=== PATIENT | female | born 1935 | race Caucasian/White ===

== ENCOUNTER 2016-09-22 12:40 | Emergency (ER) | payer OTHER, BC ==
[~2016-09-22] VITALS: Ht 170.2 cm; Wt 104.8 kg
[~2016-09-22 12:40] MED LIST: LEVO75TA36 PO; SIMV20TA2 PO
[2016-09-22 12:44] VITALS: TEMP 36.9; Ht 170.2 cm; Wt 104.8 kg
[2016-09-22 13:09] VITALS: O2SAT 94
[2016-09-22 13:25] LABS: HEMATOCRIT 37.9 % (37-47); MEAN CELL VOLUME 89.4 fL (80-100); MEAN CORPUSCULAR HEMOGLOBIN 30.2 pg (25-34); MEAN CORPUSCULAR HGB CONC 33.8 g/dl (32-36); MEAN PLATELET VOLUME 9.5 fL (7.4-10.4); PLATELET COUNT 168 K/uL (130-400); RED BLOOD COUNT 4.24 M/uL (4.2-5.4); WHITE BLOOD COUNT 7.11 K/uL (4.8-10.8)
[2016-09-22] MEDS ORDERED: PRED-301 PO (13:36)
[2016-09-22] MEDS ORDERED: ATOR10TA88 PO (13:36)
[2016-09-22] MEDS ORDERED: ASPI81TA28 PO (13:36)
[2016-09-22] MEDS ORDERED: LEVO88TA PO (13:36)
[2016-09-22] MEDS ORDERED: CALC500C70 PO (13:36)
[2016-09-22] MEDS ORDERED: HYDR12.56 PO (13:36)
[2016-09-22] MEDS ORDERED: ALBUT/IPRATROP 3MG/0.5MG NEB 3 ML VIAL INH STA (13:43)
--- NOTE | 2016-09-22 13:43 | DIAGNOSTIC IMAGING REPORT ---
CHEST 2 VIEWS ROUTINE CLINICAL HISTORY: Flulike symptoms COMPARISON STUDY: 05/22/2007 FINDINGS: The heart is enlarged. There is radiographic evidence of emphysema. There is mild elevation of the interstitium. This could be secondary to either chronic interstitial lung disease or mild interstitial edema. There is no lobar consolidation. There are no significant pleural effusions.[ IMPRESSION: 1. Emphysema 2. No evidence of lobar consolidation 3. Subtle interstitial thickening/edema. Electronically signed by: Marcelo Kidd M.D. 09/22/2016 1:41 PM Dictated Date/Time: 09/22/2016 1:40 PM
[2016-09-22 13:44] LABS: ALT/SGPT 24 U/L (12-78); BLOOD UREA NITROGEN 14 mg/dl (7-18); BUN/CREATININE RATIO 17.1 (10-20); CALCIUM 9.3 mg/dl (8.5-10.1); CARBON DIOXIDE 27 mmol/L (21-32); CHLORIDE 96 mmol/L (98-107); GLUCOSE 87 mg/dl (70-99); POTASSIUM 2.8 mmol/L (3.5-5.1); SODIUM 136 mmol/L (136-145)
--- NOTE | 2016-09-22 13:46 | EMERGENCY ROOM VISIT NOTE ---
History Report prepared by Myles: Vanessa Emery Under the Supervision of: Dr. Yahir Hubbard M.D. First contact with patient: 13:14 Chief Complaint: FLU LIKE SX Stated Complaint: SHORTNESS OF BREATH History of Present Illness The patient is an 81 year old female who presents to the Emergency Room with complaints of a persistent cough for the past two weeks. The patient notes that she was previously at [facility] today and was sent here for further evaluation. I received a call form [facility] and they were concerned that the patient was in congestive heart failure. The patient denies any swelling to bilateral lower extremities, but states that she has been feeling short of breath today. The patient notes a soreness in her abdomen due to her persistent cough. She denies being on any blood thinners. Source of History: patient, other ([facility]) Onset: two weeks ago Position: other (global) Quality: other (cough) Timing: other (persistent) Associated Symptoms: + SOB Note: Associated Symptoms: abdominal soreness secondary to coughing Review of Systems All systems have been listed, reviewed, and are negative other than those previously mentioned. Please see Additional Medical History Sheet. Past Medical & Surgical Medical Problems: (1) Hypertension Surgical Problems: (1) H/O: hysterectomy (2) Hx of appendectomy (3) S/P cholecystectomy Family History No significant family history Social History Smoking Status: Never Smoker Smokeless Tobacco Use: No Alcohol Use: none Marital Status: Housing Status: lives alone Occupation Status: retired Current/Historical Medications Scheduled Aspirin (Aspirin Ec), 81 MG PO HS Atorvastatin (Lipitor), 10 MG PO QPM Calcium/Vitamin D (Os-Jmaie 500 Plus D), 1 TAB PO HS Hydrochlorothiazide (Hctz), 12.5 MG PO QAM Levothyroxine Sodium (Synthroid), 88 MCG PO QAM Potassium Chloride Microencaps (Potassium Chloride Er), 1 TAB PO BID Prednisone (Prednisone), 5 MG PO NOON Allergies Coded Allergies: Latex1 -Allergic Contact Dermititis (Verified Allergy, Mild, RASH AT SITE , 09/22/16) Physical Exam Vital Signs Date Time Temp Pulse Resp B/P Pulse Ox O2 Delivery O2 Flow Rate FiO2 09/22/16 16:51 77 20 165/72 95 Room Air 09/22/16 15:36 69 20 166/62 97 Room Air 09/22/16 13:58 65 24 153/74 95 Room Air 09/22/16 13:16 71 09/22/16 13:09 75 20 166/68 94 Room Air 09/22/16 13:09 94 Room Air 09/22/16 12:44 36.9 81 20 178/74 95 Room Air Physical Exam GENERAL: Patient awake, alert, oriented x 3. Patient follows commands. Patient does not appear toxic. Patient is adequately hydrated and well- nourished. SKIN: No erythema, pallor, cyanosis or rash HEENT: Normal head, pupils equal, reactive to light and accommodation. Neck: Without adenopathy, no neck vein distention. LUNGS: Expiratory wheezes in all ayers. No rales, no rhonchi. HEART: No murmurs. No gallops. No rubs ABDOMEN: Obese, soft, nontender. No masses, no rebound, no hepatomegaly or splenomegaly. EXTREMITIES: No signs of trauma. No pedal or pretibial edema. No calf or thigh tenderness. NEUROLOGIC: Cranial nerves II-XII within normal limits. No gross motor sensory function deficits. Medical Decision & Procedures ER Provider Diagnostic Interpretation: X ray results are stated below per my interpretation and the radiologist's interpretation. CHEST 2 VIEWS ROUTINE CLINICAL HISTORY: Flulike symptoms COMPARISON STUDY: 05/22/2007 FINDINGS: The heart is enlarged. There is radiographic evidence of emphysema. There is mild elevation of the interstitium. This could be secondary to either chronic interstitial lung disease or mild interstitial edema. There is no lobar consolidation. There are no significant pleural effusions.[ IMPRESSION: 1. Emphysema 2. No evidence of lobar consolidation 3. Subtle interstitial thickening/edema. Electronically signed by: Marcelo Kidd M.D. 09/22/2016 1:41 PM Dictated Date/Time: 09/22/2016 1:40 PM Laboratory Results 09/22/16 13:00 Red Blood Count 4.24, Mean Corpuscular Volume 89.4, Mean Corpuscular Hemoglobin 30.2, Mean Corpuscular Hemoglobin Concent 33.8, Mean Platelet Volume 9.5, Neutrophils (%) (Auto) 62.1, Lymphocytes (%) (Auto) 26.0, Monocytes (%) (Auto) 8.7, Eosinophils (%) (Auto) 2.5, Basophils (%) (Auto) 0.6, Neutrophils # (Auto) 4.41, Lymphocytes # (Auto) 1.85, Monocytes # (Auto) 0.62, Eosinophils # (Auto) 0.18, Basophils # (Auto) 0.04 09/22/16 13:00 Test 09/22/16 13:00 09/22/16 13:15 White Blood Count 7.11 K/uL (4.8-10.8) Red Blood Count 4.24 M/uL (4.2-5.4) Hemoglobin 12.8 g/dL (12.0-16.0) Hematocrit 37.9 % (37-47) Mean Corpuscular Volume 89.4 fL (80-100) Mean Corpuscular Hemoglobin 30.2 pg (25-34) Mean Corpuscular Hemoglobin Concent 33.8 g/dl (32-36) Platelet Count 168 K/uL (130-400) Mean Platelet Volume 9.5 fL (7.4-10.4) Neutrophils (%) (Auto) 62.1 % Lymphocytes (%) (Auto) 26.0 % Monocytes (%) (Auto) 8.7 % Eosinophils (%) (Auto) 2.5 % Basophils (%) (Auto) 0.6 % Neutrophils # (Auto) 4.41 K/uL (1.4-6.5) Lymphocytes # (Auto) 1.85 K/uL (1.2-3.4) Monocytes # (Auto) 0.62 K/uL (0.11-0.59) Eosinophils # (Auto) 0.18 K/uL (0-0.5) Basophils # (Auto) 0.04 K/uL (0-0.2) RDW Standard Deviation 45.3 fL (36.4-46.3) RDW Coefficient of Variation 13.8 % (11.5-14.5) Immature Granulocyte % (Auto) 0.1 % Immature Granulocyte # (Auto) 0.01 K/uL (0.00-0.02) Anion Gap 13.0 mmol/L (3-11) Est Creatinine Clear Calc Drug Dose 66.4 ml/min Estimated GFR () 79.0 Estimated GFR (Non- 68.2 BUN/Creatinine Ratio 17.1 (10-20) Calcium Level 9.3 mg/dl (8.5-10.1) Total Bilirubin 0.6 mg/dl (0.2-1) Aspartate Amino Transf (AST/SGOT) 26 U/L (15-37) Alanine Aminotransferase (ALT/SGPT) 24 U/L (12-78) Alkaline Phosphatase 74 U/L (45-117) Troponin I < 0.015 ng/ml (0-0.045) Total Protein 7.9 gm/dl (6.4-8.2) Albumin 3.3 gm/dl (3.4-5.0) Globulin 4.6 gm/dl (2.5-4.0) Albumin/Globulin Ratio 0.7 (0.9-2) Influenza Type A (RT-PCR) Neg for Influ A (NEG) Influenza Type A Antigen Neg for Influ A (NEG) Influenza Type B Antigen Neg for Influ B (NEG) Influenza Type B (RT-PCR) Neg for Influ B (NEG) Laboratory results as stated above per my review. Medications Administered Medications (Trade) Dose Ordered Sig/Shyann Route Start Time Stop Time Status Last Admin Dose Admin Albuterol/ Ipratropium (Duoneb) 3 ml NOW STAT INH 09/22/16 13:43 09/22/16 13:45 DC 09/22/16 13:59 3 ML Potassium Chloride (Klor-Con Tab) 20 meq 1515,1615 PO 09/22/16 15:15 09/22/16 16:16 DC 09/22/16 16:46 20 MEQ ECG Indication: SOB/dyspnea Rate (beats per minute): 66 Rhythm: normal sinus Findings: LBBB, no acute ischemic change, no ectopy ED Course 1315: Past medical records reviewed. The patient was evaluated in room C4. A complete history and physical examination was performed. 1344: Ordered Duoneb 3 ml INH. 1515: Ordered Potassium Chloride 20 meq PO. 1620: I reevaluated the patient and she is still wheezing. I discussed the exam findings with her at this time. She is gong to have an ambulatory trial. 1700: I reevaluated the patient and she is resting comfortably. I discussed the exam findings with her and I discussed the treatment plan. She verbalized complete understanding and agreement. She is ready to go home. 1715: Ordered Albuterol 2 puffs INH. Medical Decision Nurses notes reviewed. Medical history sheet reviewed. Differential diagnosis includes but is not limited to: acute bronchitis, asthma, congestive heart failure, PE, pneumonia . 81-year-old female with cough and some shortness of breath and no fever. The patient was seen earlier today at [facility] and sent here with what they felt was congestive failure. I viewed their chest x-ray which I believe was overexposed. Repeat chest x-ray today does not reveal failure. Blood work, EKG and imaging were evaluated. Please see above. The patient appears nontoxic and does not appear very short of breath although she does have an occasional cough. Ambulatory trial with pulse oximetry does not result in any hypoxemia. I believe the patient can safely return home. She will be sent with an albuterol inhaler. The patient's potassium is low. She was given 2 doses here and will continue potassium at home. She is to follow-up with her family physician. Impression Primary Impression: Acute bronchitis Additional Impression: Hypokalemia Scribe Attestation The scribe's documentation has been prepared under my direction and personally reviewed by me in its entirety. I confirm that the note above accurately reflects all work, treatment, procedures, and medical decision making performed by me. Departure Information Dispostion Home / Self-Care Prescriptions Potassium Chloride Microencaps (POTASSIUM CHLORIDE ER) 10 Meq Tab 1 TAB PO BID for 30 Days, #60 TAB 5 Refills Prov: Yahir Hubbard M.D. 09/22/16 Referrals RV. Noel MD (PCP) Forms HOME CARE DOCUMENTATION FORM, IMPORTANT VISIT INFORMATION Patient Instructions Bronchitis Acute, My [facility] Additional Instructions 1 potassium pill twice a day. 2 puffs of the inhaler every 4 hours as needed for cough or wheezing. Continue all of your current medications as prescribed. Follow-up with your family physician within the next 10 days. Return here sooner if you become more short of breath. Problem Qualifiers
[2016-09-22 13:49] LABS: ALB/GLOB RATIO 0.7 (0.9-2); ALKALINE PHOSPHATASE 74 U/L (45-117); AST/SGOT 26 U/L (15-37)
[2016-09-22 14:21] LABS: BASO % 0.6 %; BASO ABS # 0.04 K/uL (0-0.2); COMPLETE YES; EOS % 2.5 %; IG% 0.1 %; LYMPH ABS # 1.85 K/uL (1.2-3.4); MONO % 8.7 %; NEUT % 62.1 %
[2016-09-22] MEDS ORDERED: POTASSIUM PHOS 3 MMOL/1 ML INFUSION IV STA (14:50)
[2016-09-22] MEDS: POTASSIUM CHLORIDE 20 MEQ TABCR PO SCH ×2 (15:34→16:46)
[2016-09-22 15:54] LABS: INFLUENZA A PCR Neg for Influ A (NEG); INFLUENZA B PCR Neg for Influ B (NEG)
[2016-09-22] MEDS ORDERED: POTA10TA32 PO (17:13)
[2016-09-22] MEDS ORDERED: ALBUTEROL HFA 8 GM INHALER INH STA (17:15)
[2016-09-22 17:41] VITALS: BP 169/75; PULSE 79; O2SAT 94
== END 2016-09-22 17:58 | disposition home or self-care (01) ==
LOC: C.EDB 12:41 → C.EDC 17:58
DX: J20.9 Acute bronchitis, unspecified (principal); E87.6 Hypokalemia; I10 Essential (primary) hypertension; Z90.49 Acquired absence of other specified parts of digestive tract

== ENCOUNTER → 2016-11-08 | Outpatient (CLI) | payer OTHER, BC ==
[~2016-11-08] MED LIST changes: +ASPI81TA28 PO; +ATOR10TA82 PO; +CALC500C70 PO; +HYDR12.56 PO; -LEVO75TA36 PO; +LEVO88TA PO; +POTA10TA32 PO; +PRED-301 PO; -SIMV20TA2 PO
== END | disposition home or self-care (01) ==
LOC: C.LAB1850 08:42
PROVIDERS: ATTEND Physician Assistant
DX: E87.6 Hypokalemia (principal)

== ENCOUNTER → 2016-11-21 | Outpatient (CLI) | payer OTHER, BC ==
[2016-11-21 12:14] LABS: ESTIMATED AVERAGE GLUCOSE 123 mg/dl; HA1C FLAG Normal (Normal)
[2016-11-21 12:56] LABS: ALT/SGPT 25 U/L (12-78); AST/SGOT 17 U/L (15-37); BLOOD UREA NITROGEN 18 mg/dl (7-18); BUN/CREATININE RATIO 24.5 (10-20); CALCIUM 9.4 mg/dl (8.5-10.1); CARBON DIOXIDE 29 mmol/L (21-32); CHLORIDE 102 mmol/L (98-107); CREATININE 0.74 mg/dl (0.60-1.20); GLUCOSE 80 mg/dl (70-99); MAGNESIUM 2.3 mg/dl (1.8-2.4); POTASSIUM 3.3 mmol/L (3.5-5.1); SODIUM 138 mmol/L (136-145)
[2016-11-21 13:07] LABS: ALB/GLOB RATIO 0.9 (0.9-2); ALKALINE PHOSPHATASE 67 U/L (45-117); CHOLESTEROL 185 mg/dl (0-200); CHOLESTEROL/HDL RATIO 2.6; HDL CHOLESTEROL 71 mg/dl; LDL CHOLESTEROL CALCULATED 94 mg/dl; TRIGLYCERIDES 100 mg/dl (0-150); VERY LOW DENSITY LIPOPROT CALC 20 mg/dl
--- NOTE | 2016-11-26 13:31 | CODING QUERY MEDICAL NECESSITY ---
CQSUPPORTING DIAGNOSIS NEEDED A supporting diagnosis is required for the test/procedure performed on this patient in order for us to be reimbursed by the patient's insurance. Please provide a supporting diagnosis for the following test/procedure listed below next to the test name along with your signature. *If there is no additional diagnosis for this patient that would support the following test/procedure please document that below next to the test/procedure. Test(s)/Procedure(s) that require a supporting diagnosis: NANO 11/21/16 GLYCATED HEMOGLOBIN TEST Provider Signature: Date: Thank you Libia Radford Health Information Management Once completed, please kindly fax back to [phone] For questions please call [phone]
== END | disposition home or self-care (01) ==
LOC: C.LAB1850 10:45
PROVIDERS: ATTEND Internal Medicine
DX: E87.6 Hypokalemia (principal); E03.9 Hypothyroidism, unspecified; E78.5 Hyperlipidemia, unspecified; Z79.52 Long term (current) use of systemic steroids

== ENCOUNTER → 2017-10-30 | Outpatient (CLI) | payer OTHER, BC ==
[2017-10-30 10:31] LABS: BASO % 0.3 %; BASO ABS # 0.02 K/uL (0-0.2); EOS % 4.2 %; EOS ABS # 0.26 K/uL (0-0.5); HEMATOCRIT 37.1 % (37-47); HEMOGLOBIN 12.3 g/dL (12.0-16.0); IG# 0.02 K/uL (0.00-0.02); LYMPH % 21.9 %; LYMPH ABS # 1.34 K/uL (1.2-3.4); MEAN CELL VOLUME 95.1 fL (80-100); MEAN CORPUSCULAR HEMOGLOBIN 31.5 pg (25-34); MEAN CORPUSCULAR HGB CONC 33.2 g/dl (32-36); MEAN PLATELET VOLUME 10.3 fL (7.4-10.4); MONO % 12.7 %; MONO ABS # 0.78 K/uL (0.11-0.59); NEUT % 60.6 %; NEUT ABS # 3.71 K/uL (1.4-6.5); PLATELET COUNT 201 K/uL (130-400); RED CELL DISTRIBUTION WIDTH CV 13.5 % (11.5-14.5); RED CELL DISTRIBUTION WIDTH SD 46.8 fL (36.4-46.3); WHITE BLOOD COUNT 6.13 K/uL (4.8-10.8)
[2017-10-30 11:06] LABS: ALBUMIN 3.7 gm/dl (3.4-5.0); ALT/SGPT 21 U/L (12-78); AST/SGOT 25 U/L (15-37); BLOOD UREA NITROGEN 14 mg/dl (7-18); CALCIUM 9.5 mg/dl (8.5-10.1); CARBON DIOXIDE 28 mmol/L (21-32); CHOLESTEROL 184 mg/dl (0-200); CREATININE 0.78 mg/dl (0.60-1.20); GLUCOSE 82 mg/dl (70-99); POTASSIUM 3.9 mmol/L (3.5-5.1); SODIUM 137 mmol/L (136-145)
[2017-10-30 11:14] LABS: ALKALINE PHOSPHATASE 66 U/L (45-117); LDL CHOLESTEROL CALCULATED 93 mg/dl; TOTAL PROTEIN 7.2 gm/dl (6.4-8.2)
[2017-10-30 12:05] LABS: HEMOGLOBIN A1C 5.8 % (4.5-5.6)
== END | disposition home or self-care (01) ==
LOC: C.LAB1850 09:32
PROVIDERS: ATTEND Internal Medicine
DX: E03.9 Hypothyroidism, unspecified (principal); E78.5 Hyperlipidemia, unspecified; Z79.52 Long term (current) use of systemic steroids; I10 Essential (primary) hypertension

== ENCOUNTER 2019-02-22 09:37 | Inpatient (IN) ==
[2019-02-22] MEDS ORDERED: ONDANSETRON INJ 2 MG/ML 2 ML VIAL IV STA (10:23)
[2019-02-22] MEDS ORDERED: fentaNYL citrate 100 MCG/2 ML VIAL IV ONE (10:23)
[2019-02-22] MEDS ORDERED: SODIUM CHLORIDE 0.9% 500 ML IV SCH (10:30)
--- NOTE | 2019-02-22 10:50 | XRay Report ---
XR chest 1V portable CLINICAL HISTORY: 83 years-old Female presenting with sob eval for pna. TECHNIQUE: Portable upright AP view of the chest was obtained. COMPARISON: 07/23/[address] from 02/09/2019. FINDINGS: Left internal jugular Mediport terminates in the lower SVC. Atherosclerosis of the aortic arch. Cardi ac silhouette moderately enlarged. Mild pulmonary vascular prominence. Heterogeneity of lung parenchy ma with coarsened lung markings. Vague reticulonodular opacities in the lung bases as on prior exam. The previously noted nodule in the right mid lung has been resected with a suture margin evident.. No pleural effusion or pneumothorax. Degenerative changes of the thoracic spine. Degenerative changes o f the shoulders. IMPRESSION: 1. Chronic reticulonodular opacities, which could suggest chronic indolent infection or chronic aspi ration among other etiologies. 2. No new focal infiltrate to suggest pneumonia. 3. Cardiomegaly. Electronically signed by: Sylvester Banda M.D. 02/22/2019 10:49 AM
[2019-02-22 11:07] LABS: Basophils # (auto) 0.01 K/uL (0-0.2); Basophils % (auto) 0.3 %; Eosinophils # (auto) 0.01 K/uL (0-0.5); Eosinophils % (auto) 0.3 %; Hematocrit (blood only) 28.5 % (37-47); Hemoglobin 9.7 g/dL (12.0-16.0); Immature Granulocytes # (auto) 0.04 K/uL (0.00-0.02); Immature Granulocytes % (auto) 1.1 %; Lymphocytes # (auto) 0.55 K/uL (1.2-3.4); Lymphocytes % (auto) 14.5 %; Mean Corpuscular Volume 92.5 fL (80-100); Mean Platelet Volume 9.4 fL (7.4-10.4); Monocytes # (auto) 0.59 K/uL (0.11-0.59); Monocytes % (auto) 15.5 %; Neutrophils % (auto) 68.3 %; Platelet Count 178 K/uL (130-400); RDW Coefficient of Variation 18.9 % (11.5-14.5); RDW Standard Deviation 63.6 fL (36.4-46.3); Red Blood Count 3.08 M/uL (4.2-5.4)
[2019-02-22 11:28] LABS: Alanine Aminotransferase 14 U/L (12-78); Albumin Level 1.9 gm/dl (3.4-5.0); Aspartate Aminotransferase 23 U/L (15-37); BUN Creatinine Ratio 27.5 (10-20); Blood Urea Nitrogen 22 mg/dl (7-18); Calcium 9.5 mg/dl (8.5-10.1); Carbon Dioxide 27 mmol/L (21-32); Chloride 100 mmol/L (98-107); Est GFR (African American) 76.8; Est GFR (Non-African American) 66.2; Glucose 90 mg/dl (70-99); Potassium 3.4 mmol/L (3.5-5.1); Sodium 136 mmol/L (136-145)
[2019-02-22 11:39] LABS: Albumin Globulin Ratio 0.5 (0.9-2); Alkaline Phosphatase 90 U/L (45-117); Bilirubin,Total 0.6 mg/dl (0.2-1); Globulin 4.1 gm/dl (2.5-4.0); Troponin I < 0.015 ng/ml (0-0.045)
[2019-02-22] MEDS ORDERED: VANCOMYCIN HCL 1,750 MG in SODIUM CHLORIDE 0.9% 500 ML IV ONE (12:30)
[2019-02-22 12:34] LABS: Appearance Urine Clear (Clear); Bilirubin Urine Negative (Negative); Blood Urine Negative (Negative); Color Urine Yellow; Glucose Urine UA Negative (Negative); Ketones Urine Negative (Negative); Leukocyte Esterase Urine Negative (Negative); Nitrite Urine Negative (Negative); Protein Urine Negative (Negative); Specific Gravity Urine 1.011 (1.000-1.030); Urobilinogen Urine Negative (Negative); pH Urine 7.5 (4.5-7.5)
[2019-02-22] MEDS ORDERED: VANCOMYCIN CONSULT ACTIVE PRN (15:33)
[2019-02-22] MEDS ORDERED: ACETAMINOPHEN 500 MG TAB PO PRN (15:33)
[2019-02-22] MEDS ORDERED: OXYCODONE/ACETAMINOPHEN 5mg/325mg TAB PO PRN (15:33)
[2019-02-22] MEDS ORDERED: MAGNESIUM HYDROXIDE SUSP 30 ML UDC PO PRN (15:33)
[2019-02-22] MEDS ORDERED: ACETAMINOPHEN 325 MG TAB PO PRN (15:33)
[2019-02-22] MEDS ORDERED: ZOLPIDEM TARTRATE 5 MG TAB PO PRN (15:33)
[2019-02-22] MEDS ORDERED: POLYETHYLENE (MIRALAX) 17 GM PACK PO PRN (15:33)
[2019-02-22] MEDS ORDERED: ALUMINUM/MAGNESIUM SUSP 30 ML UDC PO PRN (15:33)
[2019-02-22] MEDS: MoRPHine SULFATE 2 MG/ML CARP IV PRN ×2 (16:07→19:40)
--- NOTE | 2019-02-22 16:15 | History & Physical Report ---
Date of Service February 22, 2019 Assessment & Plan (1) Generalized weakness: Admit to patient to PCU on telemetry and downgraded to [facility] if patient starts to improve the next day. Concern is extensive infected wounds that requires significant pain management. Vital signs every 4 hours Pain management with morphine sulfate 2 mg IV every 3 hours as needed for severe pain, Percocet 11/14/2024 every 4 hours as needed for moderate pain. Hold opiates if respiratory rate less than 12. Started vancomycin for extensive staph aureus cabrera positive wound, managed by pharmacy. Continue rivaroxaban for DVT prophylaxis Full code Present on Admission?: Yes (2) Anemia: Anemia of chronic disease and due to recent radiation therapy. Treat underlying issue which is a metastatic breast cancer. Present on Admission?: Yes (3) Ambulatory dysfunction: Since completion of radiation patient said that that she is increasingly weak and cannot ambulate anymore on her own which was expectant side effect of the radiation therapy. Placed nutritional consult. Discussed with oncology hematology. Present on Admission?: Yes (4) Dehydration: Started gentle IV fluid hydration Present on Admission?: Yes (5) Infected open wound: As the above , also consulted wound care and pain management. Present on Admission?: Yes (6) Stage II pressure ulcer of buttock: Same treatment as for the other wound. Air mattress. Present on Admission?: Yes (7) Hypertension: Stable. Continue home regimen with hydrochlorothiazide, potassium chloride. Present on Admission?: Yes (8) Breast cancer metastasized to lung: Metastatic breast cancer is not in complete remission. Patient supposed to have chemotherapy tomorrow. Placed consult for Dr. Barnett who is patient shingles roofer oncologist. Present on Admission?: Yes History of Present Illness Chief Complaint: Infected wound Primary Care Provider: Eliezer Diaz MD 83 years old female with past medical history of breast cancer cancer metastatic to lungs, hypertension, stage II pressure ulcer of buttock, infant directed open wound located at her upper chest and right breast area anemia, leukopenia, presents to the emergency room with of nonhealing infected wound located at the right breast generalized weakness malaise and uncontrollable pain. Patient completed radiation therapy for the right metastatic breast cancer and she is currently on Abraxane on under supervision of Dr. Javier Barnett. Patient had a mixed response with chemotherapy with a good response at her site of distant metastases metastases however her primary breast mass has become very large and symptomatic and for that patient received radiation palliative external beam radiation therapy which course she completed.Patient patient supposed to have continuation of chemotherapy tomorrow. Patient said since radiation therapy has been completed her superficial chest wound localized around the right black breast is draining and not healing properly and it is very painful. Patient lives by herself at home and her only son travels for work and could not be 04/02 presents to help patient with all of her needs. Patient said that she needs not only wound care which she had so far daily but she would also need daily ADLs most likely 04/02. Patient denies fever chills headache, cardiac chest pain, shortness of breath abdominal pain frequency urgency hemoptysis and hematemesis. Labs were reviewed which shows white blood cell of 3.8 red blood cell 3.08 hemoglobin 9.7 hematocrit 28.5 platelets 178, sodium 136 potassium 3.4 BUN 22 creatinine 0.81 GFR 76.8 BUN/creatinine ratio 27.5, TSH 1.320 lactate 1.9 BNP 611 AST 23 ALT 14 alkaline phosphatase 90. EKG shows normal sinus rhythm, left bundle branch block, T wave no longer evident in inferior leads. OK interval has decreased. No ST segment elevation or depression, QT 456. CXR significant for nChronic reticulonodular opacities, which could suggest chronic indolent infection or chronic aspiration among other etiologies. No new focal infiltrate to suggest pneumonia. Cardiomegaly. Decision was made to accept patient to PCU on telemetry. Allergies Allergy/AdvReac Type Severity Reaction Status Date / Time latex Allergy Mild RASH AT Verified 02/22/19 12:07 SITE Home Medications Home Medications Medication Instructions Recorded Confirmed Type Calcium 600 + D(3) 1 cap PO DAILY 07/16/18 02/22/19 History atorvastatin 10 mg PO QPM 07/16/18 02/22/19 History hydrochlorothiazide 12.5 mg PO QAM 07/16/18 02/22/19 History levothyroxine 88 mcg PO QAM 07/16/18 02/22/19 History potassium chloride 20 meq PO QDL 07/16/18 02/22/19 History prednisone 5 mg PO QDL 07/16/18 02/22/19 History ondansetron HCl 8 mg tablet 8 mg PO TID PRN 12/01/18 02/22/19 History doxycycline hyclate 100 mg capsule 100 mg PO BID 01/14/19 02/22/19 History acetaminophen [Tylenol Extra 1,000 mg PO UD PRN 02/22/19 02/22/19 History Strength] metronidazole 1 applic TOPICAL UD 02/22/19 02/22/19 History rivaroxaban [Xarelto] 20 mg PO QAM 02/22/19 02/22/19 History Past Med/Surg History Medical History History of chemotherapy (Acute) Abraxane x 5 cycles q 3 weeks Anemia HX OF Breast cancer 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 Father , Passed age 87 of stroke No problems noted. Sister , Passed age 45 of ovarian CA No problems noted. Sister No problems noted. Sister No problems noted. Brother , Passed age 7 in an MVA No problems noted. Brother No problems noted. Brother No problems noted. Son , Passed age 45 of stroke No problems noted. Son No problems noted. Social History Preferred Language: Uzbek Communication Ability: Effective Visual Impairment: Limited Hearing Ability: Hard of Hearing Administrator Health Care Facility Required: No Beliefs That Will Affect Care: Quaker Quaker Beliefs: ADVENTISM marital status: Current Living Situation: Alone current occupational status: retired current occupation: Retired Housewife Other Information That Helps Us Care for You: No Feels Safe at Home: Yes Safety Concerns: Feels Safe At This Time Smoking Status: Never smoker Do You Dip or Chew Tobacco: No ; Second Hand Exposure: No ; Hx Alcohol Use: No Hx Substance Use: No caffeine: Yes (Occasional) during the past year weight has: remained stable Dental Care, Regularly: No Review of Systems Review of Systems: All systems reviewed & are unremarkable except as noted in HPI & below Integumentary: Patient complaining of right-sided chest pain with extensive wound located below her right nipple and large pockets of necrotic tissue. Physical Exam Constitutional: WD/WN, vitals as above well developed and + frail appearing Eyes: PERRL, conjunctivae normal, anicteric sclerae ENMT: external ear and nose normal, oropharynx normal Neck: trachea midline, no thyromegaly Respiratory: normal respiratory effort, lungs clear to auscultation Cardiovascular: RRR, no murmur, no edema Chest (Breasts): Additional Comments: Extensive wound located around and below the right breast with a deep pocket that is located in the right breast draining and appears necrotic. The wound extends below the right axilla. Gastrointestinal (Abdomen): normal bowel sounds, soft, nontender, no hepatosplenomegaly Musculoskeletal: no cyanosis or clubbing, extremities motor strength 5/5 Skin: Wound 1 to the right breast measures 8 x 9 x 0.4 cm in size. Wound base is covered in necrotic tissue. Wound is malodorous. Moderate amount of serosanguineous drainage is noted. Periwound erythema is noted secondary to radiation. Wound 2 the left buttocks measures 0.5 x 0.5 x 0.1 cm in size.Wound base is pink. No odor present. Scant amount of serous drainage is noted. Wound 3 is a new wound to the left buttocks measuring 4 x 4 x 0.1 cm in size. Wound base is pink. No odor present. Small amount of serosanguineous drainage is noted. Periwound is intact. Neurologic: patellar DTR's 2+ bilat, sensation intact Psychiatric: A+Ox3, euthymic affect Lymphatic: no cervical or axillary lymphadenopathy Results & Data Vital Signs (Past 12 Hours) Vital Signs Temp Pulse Pulse Resp BP BP Pulse Ox 02/22/19 15:33 36.7 C 84 16 164/76 H 100 02/22/19 14:57 74 16 186/95 H 96 02/22/19 13:26 75 18 140/59 L 95 02/22/19 13:21 74 31 H 98 02/22/19 13:19 78 23 161/80 H 02/22/19 13:10 85 25 H 02/22/19 13:00 78 29 H 02/22/19 12:50 82 20 02/22/19 12:40 80 18 92 02/22/19 12:30 76 32 H 02/22/19 12:20 100 H 36 H 02/22/19 12:10 72 14 99 02/22/19 12:00 70 15 96 02/22/19 11:50 69 25 H 96 02/22/19 11:40 72 17 02/22/19 11:30 72 29 H 02/22/19 11:20 71 32 H 100 02/22/19 11:17 71 20 140/76 98 02/22/19 11:16 72 26 H 96 02/22/19 11:10 69 32 H 02/22/19 11:00 74 24 02/22/19 10:50 73 29 H 02/22/19 10:40 76 31 H 02/22/19 10:30 74 31 H 02/22/19 10:20 86 28 H 02/22/19 10:10 81 25 H 02/22/19 10:06 82 19 140/76 95 02/22/19 09:43 36.3 C L 79 16 132/70 99 Code Status & VTE Plan Code Status Full code VTE Prophylaxis Plan VTE Prophylaxis will be ordered: Yes PG Care Time/CCT Total # of Minutes Spent Total Time Spent with Patient: Total time spent is greater than 50% in coordination of care (as documented) at patient's floor/unit and/or counseling patient: (1) Anemia Anemia type: unspecified type Qualified Code(s): D64.9 - Anemia, unspecified (2) 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
--- NOTE | 2019-02-22 16:22 | Pharmacy Report ---
Pharmacy Abx Initial Consult - Date of Service February 22, 2019 - Pharmacy Dosing Scope Date of Consult: 02/22/19 Consultation requested by: Dr. Deshpande Pharmacy is consulted to initiate Vancomycin IV dosing therapy, order appropriate labs and adjust drug dose/frequency. - Subjective The patient is a 83 year old F admitted on 02/22/19 13:32. - Objective Height: 5 ft 6 in Weight: 84.9 kg Vital Signs (Past 12hrs): Vital Signs Temp Pulse Pulse Resp BP BP Pulse Ox 02/22/19 15:33 36.7 C 84 16 164/76 H 100 02/22/19 14:57 74 16 186/95 H 96 02/22/19 13:26 75 18 140/59 L 95 02/22/19 13:21 74 31 H 98 02/22/19 13:19 78 23 161/80 H 02/22/19 13:10 85 25 H 02/22/19 13:00 78 29 H 02/22/19 12:50 82 20 02/22/19 12:40 80 18 92 02/22/19 12:30 76 32 H 02/22/19 12:20 100 H 36 H 02/22/19 12:10 72 14 99 02/22/19 12:00 70 15 96 02/22/19 11:50 69 25 H 96 02/22/19 11:40 72 17 02/22/19 11:30 72 29 H 02/22/19 11:20 71 32 H 100 02/22/19 11:17 71 20 140/76 98 02/22/19 11:16 72 26 H 96 02/22/19 11:10 69 32 H 02/22/19 11:00 74 24 02/22/19 10:50 73 29 H 02/22/19 10:40 76 31 H 02/22/19 10:30 74 31 H 02/22/19 10:20 86 28 H 02/22/19 10:10 81 25 H 02/22/19 10:06 82 19 140/76 95 02/22/19 09:43 36.3 C L 79 16 132/70 99 Lab Results (24hrs): Laboratory Tests (24 Hours) 02/22/19 02/22/19 10:57 10:57 WBC 3.80 L Neut # (Auto) 2.60 Creatinine 0.81 Est Cr Clr Drug Dosing Not Reportable Micro Results: 02/22/19 11:27 Aerobic Blood Culture - Pending Blood Anaerobic Blood Culture - Pending 02/22/19 10:57 Aerobic Blood Culture - Pending Blood Anaerobic Blood Culture - Pending - Risk Factors for Resistance * Immunocompromised (recent radiation therapy for breast CA.) * Antimicrobial use within the last 90 days [Omnicef and Keflex] - Assessment & Plan Assessment 83 year old F admitted for non-healing breast cellulitis s/p radiation therapy for breast cancer. Patient was recently on Omnicef and Keflex antibiotics. Vancomycin ordered on admission. Blood cultures obtained. Plan Vancomycin IV for cellulitis. * Estimated PK Parameters: Vd 0.6 L/kg, Teo 0.05 hr-1, t1/2 13.8 hr * Loading dose: 1750 mg IV (20 mg/kg) given in ED at 1316 today. * Maintenance dose: Vanc 1250 mg IV (14.7 mg/kg) every 20 hours ordered for 0400 AM tonight. * Goal trough level for Cellulitis: 12 to 18 mcg/mL. Goal trough for possible bacteremia: 15 to 20 mcg/ml * Trough level ordered for 02/24/19 before dose at 2000. Pharmacy will continue to follow and will adjust dose/frequency as necessary. Thank you.
--- NOTE | 2019-02-22 17:17 | Emergency Department Note ---
Entered by Paola White acting as a scribe for History of Present Illness General Chief complaint: Breast Pain/Problems Stated complaint: NOT ABLE TO WALK, RT BREAST BURN AND BLEEDING Source: patient and family (Son) History of Present Illness Provider complaint: weakness Onset (ago): day(s) 6 Location: left and right Maximum Pain Intensity: 7 Quality: + other (weakness) Associated symptoms: + headaches, + loss of appetite, + shortness of breath and + other (Postive right breast pain; postive lethargic; positive lightheaded; positive immobility; negative black stools; negative bloody stools; negative abdominal pain; negative diarrhea); no fever/chills and no nausea/vomiting Treatments prior to arrival: other (Doxycycline) The patient, who is a 83 year old female with a medical history of hypertension, anemia and breast cancer, presents to the Emergency Room with complaints of weakness that started 6 days ago. 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 The patient's son explains that the patient has a radiation burn on her breast and down the side of her abdomen. The patient was put on Doxycycline for this injury. The patient's son reports that now the wound is bleeding and the patient is unable to walk. She feels extremely weak. The patient expresses that she has wound pain that is more severe than her intermitt ent cancer pains. The patient states that she has a loss of appetite. The patient expresses that she has intermittent shortness of breath. The patient confirms that she has headaches. The patient's son observes that the patient is very lethargic. The patient's son reports that during a recent bowel movement the patient became very lightheaded. The patient denies fever, vomiting, abdominal pain, diarrhea, bloody stools, black stools, or headaches. The patient son states that the patient has had around 20 radiation treatment since July with the most recent being two weeks ago. The patient denies a history of diabetes and heart disease. Home Medications Home Medications Medication Instructions Recorded Confirmed Type Calcium 600 + D(3) 1 cap PO DAILY 07/16/18 02/22/19 History atorvastatin 10 mg PO QPM 07/16/18 02/22/19 History hydrochlorothiazide 12.5 mg PO QAM 07/16/18 02/22/19 History levothyroxine 88 mcg PO QAM 07/16/18 02/22/19 History potassium chloride 20 meq PO QDL 07/16/18 02/22/19 History prednisone 5 mg PO QDL 07/16/18 02/22/19 History ondansetron HCl 8 mg tablet 8 mg PO TID PRN 12/01/18 02/22/19 History doxycycline hyclate 100 mg capsule 100 mg PO BID 01/14/19 02/22/19 History acetaminophen [Tylenol Extra 1,000 mg PO UD PRN 02/22/19 02/22/19 History Strength] metronidazole 1 applic TOPICAL UD 02/22/19 02/22/19 History rivaroxaban [Xarelto] 20 mg PO QAM 02/22/19 02/22/19 History Allergies Allergy/AdvReac Type Severity Reaction Status Date / Time latex Allergy Mild RASH AT Verified 02/22/19 12:07 SITE Past Med/Surg History Medical History History of chemotherapy (Acute) Abraxane x 5 cycles q 3 weeks Anemia HX OF Breast cancer Diagnosed 06/04/18 - Right Breast - Triple Neg - Invasive Ductal Deep vein thrombosis 1970 - after choley - left leg Hearing deficit Hyperlipidemia Hypertension Hypothyroidism Osteoarthritis Polymyalgia rheumatica Surgical History H/O breast biopsy 06/04/19 + 12/03/18 - Right H/O total hysterectomy 1970 History of appendectomy as a child History of carpal tunnel release 1999 - RT History of cataract surgery 2017 - RT/LEFT History of cholecystectomy 1980 History of colonoscopy 2014 History of tonsillectomy as a child History of tooth extraction Family History Mother , Passed age 85 of [place] No problems noted. Father , Passed age 87 of stroke No problems noted. Sister , Passed age 45 of ovarian CA No problems noted. Sister No problems noted. Sister No problems noted. Brother , Passed age 7 in an MVA No problems noted. Brother No problems noted. Brother No problems noted. Son , Passed age 45 of stroke No problems noted. Son No problems noted. Social History Preferred Language: Icelandic Communication Ability: Effective Visual Impairment: Limited Hearing Ability: Hard of Hearing Program Development Specialist Required: No Beliefs That Will Affect Care: Denominational Denominational Beliefs: ZOROASTRIAN marital status: Current Living Situation: Alone current occupational status: retired current occupation: Retired Housewife Other Information That Helps Us Care for You: No Feels Safe at Home: Yes Safety Concerns: Feels Safe At This Time Smoking Status: Never smoker Do You Dip or Chew Tobacco: No ; Second Hand Exposure: No ; Hx Alcohol Use: No Hx Substance Use: No caffeine: Yes (Occasional) during the past year weight has: remained stable Dental Care, Regularly: No Review of Systems See HPI for pertinent positives & negatives. and A total of 10 systems reviewed and were otherwise negative Physical Exam Vital Signs Vital Signs - 24 hr 02/22/19 09:43 02/22/19 10:06 02/22/19 10:10 Temperature 36.3 C L Temperature Source Oral Sepsis Recent Fever Within 48 Hours No Sepsis New/Unexplained Change in Mental Status No Sepsis Action Taken by Nursing No Action Required Pulse Rate 79 82 81 Pulse Rate [Left] Pulse Rate from SpO2 Sensor 82 Respiratory Rate 16 19 25 H Respiratory Effort / Characteristics Respiratory Depth Blood Pressure 132/70 140/76 Blood Pressure [Left Arm] Blood Pressure Mean 90 97 Blood Pressure Mean [Left Arm] Blood Pressure Position [Left Arm] Pulse Oximetry 99 95 Oxygen Delivery Method Room Air 02/22/19 10:20 02/22/19 10:30 02/22/19 10:40 Temperature Temperature Source Sepsis Recent Fever Within 48 Hours Sepsis New/Unexplained Change in Mental Status Sepsis Action Taken by Nursing Pulse Rate 86 74 76 Pulse Rate [Left] Pulse Rate from SpO2 Sensor Respiratory Rate 28 H 31 H 31 H Respiratory Effort / Characteristics Respiratory Depth Blood Pressure Blood Pressure [Left Arm] Blood Pressure Mean Blood Pressure Mean [Left Arm] Blood Pressure Position [Left Arm] Pulse Oximetry Oxygen Delivery Method 02/22/19 10:50 02/22/19 11:00 02/22/19 11:10 Temperature Temperature Source Sepsis Recent Fever Within 48 Hours Sepsis New/Unexplained Change in Mental Status Sepsis Action Taken by Nursing Pulse Rate 73 74 69 Pulse Rate [Left] Pulse Rate from SpO2 Sensor Respiratory Rate 29 H 24 32 H Respiratory Effort / Characteristics Respiratory Depth Blood Pressure Blood Pressure [Left Arm] Blood Pressure Mean Blood Pressure Mean [Left Arm] Blood Pressure Position [Left Arm] Pulse Oximetry Oxygen Delivery Method 02/22/19 11:16 02/22/19 11:17 02/22/19 11:20 Temperature Temperature Source Sepsis Recent Fever Within 48 Hours Sepsis New/Unexplained Change in Mental Status Sepsis Action Taken by Nursing Pulse Rate 72 71 Pulse Rate [Left] 71 Pulse Rate from SpO2 Sensor 72 Respiratory Rate 26 H 20 32 H Respiratory Effort / Characteristics Non-Labored Spontaneous Respiratory Depth Normal Blood Pressure Blood Pressure [Left Arm] 140/76 Blood Pressure Mean Blood Pressure Mean [Left Arm] 97 Blood Pressure Position [Left Arm] Lying Pulse Oximetry 96 98 100 Oxygen Delivery Method Room Air Room Air 02/22/19 11:30 02/22/19 11:40 02/22/19 11:50 Temperature Temperature Source Sepsis Recent Fever Within 48 Hours Sepsis New/Unexplained Change in Mental Status Sepsis Action Taken by Nursing Pulse Rate 72 72 69 Pulse Rate [Left] Pulse Rate from SpO2 Sensor 69 70 69 Respiratory Rate 29 H 17 25 H Respiratory Effort / Characteristics Respiratory Depth Blood Pressure Blood Pressure [Left Arm] Blood Pressure Mean Blood Pressure Mean [Left Arm] Blood Pressure Position [Left Arm] Pulse Oximetry 96 Oxygen Delivery Method 02/22/19 12:00 02/22/19 12:10 02/22/19 12:20 Temperature Temperature Source Sepsis Recent Fever Within 48 Hours Sepsis New/Unexplained Change in Mental Status Sepsis Action Taken by Nursing Pulse Rate 70 72 100 H Pulse Rate [Left] Pulse Rate from SpO2 Sensor 71 72 Respiratory Rate 15 14 36 H Respiratory Effort / Characteristics Respiratory Depth Blood Pressure Blood Pressure [Left Arm] Blood Pressure Mean Blood Pressure Mean [Left Arm] Blood Pressure Position [Left Arm] Pulse Oximetry 96 99 Oxygen Delivery Method 02/22/19 12:30 02/22/19 12:40 02/22/19 12:50 Temperature Temperature Source Sepsis Recent Fever Within 48 Hours Sepsis New/Unexplained Change in Mental Status Sepsis Action Taken by Nursing Pulse Rate 76 80 82 Pulse Rate [Left] Pulse Rate from SpO2 Sensor 76 Respiratory Rate 32 H 18 20 Respiratory Effort / Characteristics Respiratory Depth Blood Pressure Blood Pressure [Left Arm] Blood Pressure Mean Blood Pressure Mean [Left Arm] Blood Pressure Position [Left Arm] Pulse Oximetry 92 Oxygen Delivery Method 02/22/19 13:00 02/22/19 13:10 02/22/19 13:19 Temperature Temperature Source Sepsis Recent Fever Within 48 Hours Sepsis New/Unexplained Change in Mental Status Sepsis Action Taken by Nursing Pulse Rate 78 85 78 Pulse Rate [Left] Pulse Rate from SpO2 Sensor Respiratory Rate 29 H 25 H 23 Respiratory Effort / Characteristics Respiratory Depth Blood Pressure 161/80 H Blood Pressure [Left Arm] Blood Pressure Mean 107 Blood Pressure Mean [Left Arm] Blood Pressure Position [Left Arm] Pulse Oximetry Oxygen Delivery Method 02/22/19 13:21 02/22/19 13:26 Temperature Temperature Source Sepsis Recent Fever Within 48 Hours Sepsis New/Unexplained Change in Mental Status Sepsis Action Taken by Nursing Pulse Rate 74 Pulse Rate [Left] 75 Pulse Rate from SpO2 Sensor 74 Respiratory Rate 31 H 18 Respiratory Effort / Characteristics Non-Labored Spontaneous Respiratory Depth Blood Pressure Blood Pressure [Left Arm] 140/59 L Blood Pressure Mean Blood Pressure Mean [Left Arm] 86 Blood Pressure Position [Left Arm] Lying Pulse Oximetry 98 95 Oxygen Delivery Method Room Air Constitutional: Vital signs reviewed. Eyes: Pupils are equal round reactive to light. Conjunctiva are noninjected. ENT: Pharynx is clear without erythema or exudate. Mucous membranes are dry. Neck supple without meningeal signs. Respiratory: Clear to auscultation bilaterally. Breath sounds are equal bilaterally. Cardiovascular: Regular rate and rhythm. No rubs or gallops. GI: Soft, nondistended and nontender. Bowel sounds are present. Musculoskeletal: No peripheral edema. No lower extremity tenderness. Integumentary: No cyanosis. Large wound to her right breast with tender to touch with 7 cm cavitary defect in the medial side. Neurological: The patient is awake and alert. No focal deficits. Psychiatric: Normal affect. Course 1012: Past medical records reviewed. The patient was evaluated in room B8. A complete history and physical exam was performed. 1209: I reassessed the patient who states that she is feeling a little better. I will work to get her admitted. 1219: I reviewed the patient's case with Dr. Deshpande, [facility] Hospitalist. She will evaluate the patient for further management. Consultations Consultation #1: I reviewed the patient's case with Dr. Deshpande, [facility] Hospitalist. She will evaluate the patient for further management. Time: 12:19 Administered Medications Morphine Sulfate (Morphine Sulfate) 2 mg IV Q3H PRN PRN Reason: Severe Pain Stop: 03/08/19 15:32 Last Admin: 02/22/19 16:07 Dose: 2 mg Documented by: [id number] Discontinued Medications Fentanyl Citrate (Fentanyl Citrate) 25 mcg IV NOW ONE Stop: 02/22/19 10:24 Last Admin: 02/22/19 11:15 Dose: 25 mcg Documented by: [id number] Sodium Chloride (Nss) 500 mls @ 999 mls/hr IV .Q31M PETER Stop: 02/22/19 11:00 Last Infusion: 02/22/19 11:39 Dose: 0 mls/hr Documented by: [id number] Admin: 02/22/19 10:59 Dose: 999 mls/hr Documented by: [id number] Vancomycin HCl 1,750 mg/ (Sodium Chloride) 535 mls @ 200 mls/hr IV NOW ONE Stop: 02/22/19 15:10 Last Infusion: 02/22/19 15:57 Dose: 0 mls/hr Documented by: [id number] Admin: 02/22/19 13:16 Dose: 200 mls/hr Documented by: [id number] Ondansetron HCl (Zofran) 4 mg IV NOW STA Stop: 02/22/19 10:24 Last Admin: 02/22/19 11:15 Dose: 4 mg Documented by: [id number] Medical Decision Making Differential Diagnosis Differential diagnosis includes: dehydration, CARMEN, infection, sepsis, neutropenia, anemia as well as others were entertained. Medical Records Attestation: I reviewed the patient's medical records. The patient was seen by wound care clinic for a wound to the right breast on 02/11/2019. The patient was placed on doxycycline for 6 weeks. The patient's wound culture on December 01 for her right breast grew out staph aureus which was cabrera sensitive and diphtheroids. Home Medications Current Medication List: was personally reviewed by me Laboratory Data Attestation: I reviewed the patient's lab results. Result diagrams: 02/22/19 10:57 02/22/19 10:57 Lab Results 02/22/19 02/22/19 02/22/19 Range/Units 10:57 10:57 10:57 WBC 3.80 L (4.8-10.8) K/uL RBC 3.08 L (4.2-5.4) M/uL Hgb 9.7 L (12.0-16.0) g/dL Hct 28.5 L (37-47) % MCV 92.5 (80-100) fL MCH 31.5 (25-34) pg MCHC 34.0 (32-36) g/dL RDW Std Deviation 63.6 H (36.4-46.3) fL RDW Coeff of Siobhan 18.9 H (11.5-14.5) % Plt Count 178 (130-400) K/uL MPV 9.4 (7.4-10.4) fL Immature Gran % (Auto) 1.1 % Neut % (Auto) 68.3 % Lymph % (Auto) 14.5 % [place] % (Auto) 15.5 % Eos % (Auto) 0.3 % Baso % (Auto) 0.3 % Immature Gran # (Auto) 0.04 H (0.00-0.02) K/uL Neut # (Auto) 2.60 (1.4-6.5) K/uL Lymph # (Auto) 0.55 L (1.2-3.4) K/uL [place] # (Auto) 0.59 (0.11-0.59) K/uL Eos # (Auto) 0.01 (0-0.5) K/uL Baso # (Auto) 0.01 (0-0.2) K/uL Sodium 136 (136-145) mmol/L Potassium 3.4 L (3.5-5.1) mmol/L Chloride 100 (98-107) mmol/L Carbon Dioxide 27 (21-32) mmol/L Anion Gap 9.0 (3-11) BUN 22 H (7-18) mg/dl Creatinine 0.81 (0.6-1.2) mg/dl Est Cr Clr Drug Dosing Not Reportable Est GFR ( Amer) 76.8 Est GFR (Non-Af Amer) 66.2 BUN/Creatinine Ratio 27.5 H (10-20) Glucose 90 (70-99) mg/dl Calcium 9.5 (8.5-10.1) mg/dl Total Bilirubin 0.6 (0.2-1) mg/dl AST 23 (15-37) U/L ALT 14 (12-78) U/L Alkaline Phosphatase 90 (45-117) U/L Troponin I < 0.015 (0-0.045) ng/ml NT-Pro-B Natriuret Pep 611 (0-1800) pg/ml Total Protein 6.0 L (6.4-8.2) gm/dl Albumin 1.9 L (3.4-5.0) gm/dl Globulin 4.1 H (2.5-4.0) gm/dl Albumin/Globulin Ratio 0.5 L (0.9-2) TSH 1.320 (0.300-4.500) uIu/ml Urine Color Urine Appearance (Clear) Urine pH (4.5-7.5) Ur Specific [place] (1.000-1.030) Urine Protein (Negative) Urine Glucose (UA) (Negative) Urine Ketones (Negative) Urine Blood (Negative) Urine Nitrite (Negative) Urine Bilirubin (Negative) Urine Urobilinogen (Negative) Ur Leukocyte Esterase (Negative) 02/22/19 Range/Units 12:25 WBC (4.8-10.8) K/uL RBC (4.2-5.4) M/uL Hgb (12.0-16.0) g/dL Hct (37-47) % MCV (80-100) fL MCH (25-34) pg MCHC (32-36) g/dL RDW Std Deviation (36.4-46.3) fL RDW Coeff of Siobhan (11.5-14.5) % Plt Count (130-400) K/uL MPV (7.4-10.4) fL Immature Gran % (Auto) % Neut % (Auto) % Lymph % (Auto) % [place] % (Auto) % Eos % (Auto) % Baso % (Auto) % Immature Gran # (Auto) (0.00-0.02) K/uL Neut # (Auto) (1.4-6.5) K/uL Lymph # (Auto) (1.2-3.4) K/uL [place] # (Auto) (0.11-0.59) K/uL Eos # (Auto) (0-0.5) K/uL Baso # (Auto) (0-0.2) K/uL Sodium (136-145) mmol/L Potassium (3.5-5.1) mmol/L Chloride (98-107) mmol/L Carbon Dioxide (21-32) mmol/L Anion Gap (3-11) BUN (7-18) mg/dl Creatinine (0.6-1.2) mg/dl Est Cr Clr Drug Dosing Est GFR ( Amer) Est GFR (Non-Af Amer) BUN/Creatinine Ratio (10-20) Glucose (70-99) mg/dl Calcium (8.5-10.1) mg/dl Total Bilirubin (0.2-1) mg/dl AST (15-37) U/L ALT (12-78) U/L Alkaline Phosphatase (45-117) U/L Troponin I (0-0.045) ng/ml NT-Pro-B Natriuret Pep (0-1800) pg/ml Total Protein (6.4-8.2) gm/dl Albumin (3.4-5.0) gm/dl Globulin (2.5-4.0) gm/dl Albumin/Globulin Ratio (0.9-2) TSH (0.300-4.500) uIu/ml Urine Color Yellow Urine Appearance Clear (Clear) Urine pH 7.5 (4.5-7.5) Ur Specific [place] 1.011 (1.000-1.030) Urine Protein Negative (Negative) Urine Glucose (UA) Negative (Negative) Urine Ketones Negative (Negative) Urine Blood Negative (Negative) Urine Nitrite Negative (Negative) Urine Bilirubin Negative (Negative) Urine Urobilinogen Negative (Negative) Ur Leukocyte Esterase Negative (Negative) Imaging Data Radiologist's Impression: Radiology results as stated below per my review and the radiologist's interpretation: XR chest 1V portable CLINICAL HISTORY: 83 years-old Female presenting with sob eval for pna. TECHNIQUE: Portable upright AP view of the chest was obtained. COMPARISON: 07/23/[address] from 02/09/2019. FINDINGS: Left internal jugular Mediport terminates in the lower SVC. Atherosclerosis of the aortic arch. Cardiac silhouette moderately enlarged. Mild pulmonary vascular prominence. Heterogeneity of lung parenchyma with coarsened lung markings. Vague reticulonodular opacities in the lung bases as on prior exam. The previously noted nodule in the right mid lung has been resected with a suture margin evident.. No pleural effusion or pneumothorax. Degenerative changes of the thoracic spine. Degenerative changes of the shoulders. IMPRESSION: 1. Chronic reticulonodular opacities, which could suggest chronic indolent infection or chronic aspiration among other etiologies. 2. No new focal infiltrate to suggest pneumonia. 3. Cardiomegaly. Electronically signed by: Sylvester Banda M.D. 02/22/2019 10:49 AM ECG Data Attestation: I personally reviewed and interpreted this ECG as follows: Rate (beats per minute): 79 Rhythm: normal sinus Findings: + other (Limited intervals secondary to motion artifact) and + LBBB; no acute ischemic change Comparison ECG Date: from (07/10/2018) Change: no significant change Blood Pressure Blood Pressure Findings: Normal blood pressure MDM Narrative I did evaluate the patient as noted above. The patient is presenting with generalized weakness. Her son states that she is unable to stand today and nearly passed out when going to the bathroom. She also has significant pain to her right wrist where she has a large radiation burn. She has been seeing the wound care clinic for this and is currently on doxycycline. Her son states that today it started bleeding. She denies any fevers. She does not have any chest pain other than the pain from the burn. IV access was established. The patient was placed on a continuous manager cardiac cath. I did order and personally review the patient's 12-lead EKG as described above. Her twelve-lead EKG demonstrates a left bundle branch block. No acute ischemia is noted. I did order and personally reviewed the images of the patient's chest x-ray as described above. There is no evidence of acute pneumonia. I did order a urine analysis. There is no evidence of infection. I did order and review the patient's blood work as noted in the electronic medical record. She is not neutropenic. She is anemic. Potassium is 3.4. I did treat patient with vancomycin IV. She was also given fentanyl IV for her pain. I also treated with normal saline and Zofran IV. I did discuss the test results with the patient and her son. I did recommend hospitalization as patient is unable to get up and has significant pain to her wound. I did discuss the case with the hospitalist and disability case manager. Impression & Plan Infected open wound, Generalized weakness, Ambulatory dysfunction, Anemia, Leukopenia, Dehydration Discharge Plan Visit Data *Final* Discharge Date/Time: 02/22/19 14:57 Chief Complaint: Breast Pain/Problems Stated Complaint: NOT ABLE TO WALK, RT BREAST BURN AND BLEEDING ED Provider: Calvin Capone Discharge Problem: Infected open wound, Generalized weakness, Ambulatory dysfunction, Anemia, Leukopenia, Dehydration Patient Disposition: Admitted As Inpatient Discharge Instructions Interventions: ED Discharge Assessment Last Done: 02/22/19 14:57 Discharge Problem: Anemia Qualifiers: Anemia type: unspecified type Qualified Code(s): D64.9 - Anemia, unspecified Leukopenia Qualifiers: Leukopenia type: unspecified Qualified Code(s): D72.819 - Decreased white blood cell count, unspecified The scribe's documentation has been prepared under my direction and personally reviewed by me in its entirety. I confirm that the note above accurately reflects all work, treatment, procedures, and medical decision making performed by me.
[2019-02-22] MEDS: NSS + 20MEQ KCL 20 MEQ/1,000 ML BAG IV SCH (18:21)
[2019-02-22] MEDS: ONDANSETRON INJ 2 MG/ML 2 ML VIAL IV PRN (19:40)
[2019-02-22] MEDS: ATORVASTATIN 10 MG TAB PO SCH (20:25)
[2019-02-22] MEDS: metroNIDAZOLE 0.75% TOPICAL GEL 45 GM TUBE TOP SCH (20:26)
[2019-02-23] MEDS ORDERED: VANCOMYCIN HCL 1,250 MG in SODIUM CHLORIDE 0.9% 250 ML IV SCH (04:00)
[2019-02-23] MEDS: MoRPHine SULFATE 2 MG/ML CARP IV PRN ×2 (04:13→22:02)
[2019-02-23] MEDS: LEVOTHYROXINE SODIUM 88 MCG TABLET PO SCH (05:51)
[2019-02-23] MEDS: ONDANSETRON 8 MG TABLET PO PRN ×2 (05:51→12:42)
[2019-02-23 06:18] LABS: Basophils # (auto) 0.01 K/uL (0-0.2); Basophils % (auto) 0.4 %; Eosinophils # (auto) 0.03 K/uL (0-0.5); Eosinophils % (auto) 1.1 %; Hemoglobin 7.8 g/dL (12.0-16.0); Immature Granulocytes # (auto) 0.04 K/uL (0.00-0.02); Immature Granulocytes % (auto) 1.5 %; Lymphocytes # (auto) 0.43 K/uL (1.2-3.4); Lymphocytes % (auto) 15.7 %; Mean Corpuscular Hgb Conc 32.5 g/dL (32-36); Mean Corpuscular Volume 94.9 fL (80-100); Monocytes # (auto) 0.53 K/uL (0.11-0.59); Monocytes % (auto) 19.3 %; Platelet Count 157 K/uL (130-400); RDW Coefficient of Variation 19.1 % (11.5-14.5); RDW Standard Deviation 65.5 fL (36.4-46.3); Red Blood Count 2.53 M/uL (4.2-5.4); White Blood Count 2.74 K/uL (4.8-10.8)
[2019-02-23 06:53] LABS: Albumin Level 1.5 gm/dl (3.4-5.0); BUN Creatinine Ratio 28.2 (10-20); Calcium 8.3 mg/dl (8.5-10.1); Creatinine Clr Calc Pharmacy 66.8 ml/min; Est GFR (African American) 92.4; Est GFR (Non-African American) 79.8; Potassium 3.4 mmol/L (3.5-5.1)
[2019-02-23 07:02] LABS: Albumin Globulin Ratio 0.5 (0.9-2); Bilirubin,Total 0.6 mg/dl (0.2-1); Globulin 3.1 gm/dl (2.5-4.0); Total Protein 4.6 gm/dl (6.4-8.2)
[2019-02-23 07:12] LABS: Ovalocytes 1+
--- NOTE | 2019-02-23 08:40 | Pharmacy Report ---
Pharmacy Abx Dose Short Note - Date of Service February 23, 2019 - Assessment & Plan Assessment 02/23/19 Patient on day # 2/10 of vancomycin therapy for non-healing breast cellulitis SCr has improved from 0.81 -> 0.68, necessitating an adjustment to vancomycin frequency 02/22/19 83 year old F admitted for non-healing breast cellulitis s/p radiation therapy for breast cancer. Patient was recently on Omnicef and Keflex antibiotics. Vancomycin ordered on admission. Blood cultures obtained. Plan Vancomycin * New PK parameters: Vd ~0.6-0.65 L, Teo 0.059 hr-1, t1/2 11.7 hrs * Change to 1250 mg (14.7 mg/kg) IV every 16 hours * Goal trough level : 10 to 15 mcg/mL * Trough level ordered for: 02/24/19 @ 1130; note - this is prior to steady state but will be the 3rd day of therapy so did not want to extend checking of trough further Pharmacy will continue to follow and will adjust dose/frequency as necessary. Thank you.
[2019-02-23] MEDS ORDERED: HYDROCODONE/ACETAMOPHEN 5/325MG TAB PO PRN (08:55)
--- NOTE | 2019-02-23 09:18 | Consultation Report ---
DATE OF CONSULTATION: 02/23/2019 MEDICAL ONCOLOGY CONSULTATION REASON FOR CONSULTATION: An 83-year-old female with metastatic breast cancer with generalized asthenia. HISTORY OF PRESENT ILLNESS: Sonia Azul is a pleasant 83-year-old female patient of Dr. Javier Barnett's, currently under care for metastatic breast cancer and open wound involving the affected breast. The patient was admitted through the Emergency Room yesterday when she had presented with nonhealing infected wound involving her right breast with an additional pressure ulcer on her buttock. The patient is currently managed by Dr. Javier Barnett receiving Abraxane. Sonia estimated she has not received chemotherapy in the last couple of weeks. She had also recently completed palliative radiation therapy on 02/05/2019. Sonia suffered a moderate amount of radiation-induced dermatitis. A restaging CT scan of the chest, abdomen, and pelvis was performed on 02/09/2019 showing interval decrease in volume of the right breast mass, otherwise stable. According to Sonia, however, she has experienced a slow generalized clinical decline where her appetite has worsened and ambulation has become more difficult. The patient lives independently; however, has a very attentive son who tries to help her out. She is discussing the possibility of starting palliative care and may abandon further chemotherapy altogether. Sonia would request to talk directly to Dr. Barnett regarding options moving forward. She is currently being managed by the hospitalist service and is receiving IV hydration as well as antimicrobials. PAST MEDICAL HISTORY: Again is significant for metastatic breast cancer, treatment-induced asthenia, radiation-induced dermatitis, dehydration, stage II pressure ulcer of the buttock, hypertension. MEDICATIONS: Prior to admission include calcium with vitamin D 1 capsule p.o. daily, atorvastatin 10 mg p.o. daily, hydrochlorothiazide 12.5 mg p.o. daily, levothyroxine 88 mcg p.o. daily, potassium chloride 20 mEq p.o. daily, prednisone 5 mg p.o. daily, Zofran 8 mg p.o. t.i.d. p.r.n., doxycycline 100 mg p.o. b.i.d., Xarelto 20 mg p.o. daily, metronidazole applied topically to affected area. ALLERGIES: LATEX. SOCIAL HISTORY: The patient is retired. She lives independently. Again, has a son who lives locally who helps her out with activities of daily living. She is a nonsmoker, nondrinker. FAMILY HISTORY: Mother at age 85 from myocardial infarction. Father of stroke at age 87. She has a sister who of ovarian cancer at age 45, brother at age 7 from a motor vehicle accident, and lost a son at age 45 from a stroke. REVIEW OF SYSTEMS: CONSTITUTIONAL: Again, most notably for generalized weakness, asthenia, poor appetite. Negative for fevers, chills, or sweats. SKIN: Positive for radiation-induced dermatitis, open right breast infection, pressure ulcer in the buttock. HEENT: She denies headaches. No lightheadedness or dizziness. No acute visual or hearing deficits. No sinus symptoms, sore throat, or dysphagia. LYMPHATICS: No history of lymphadenopathy. CARDIAC: Negative for coronary artery disease, no angina or palpitations. PULMONARY: Negative for COPD. No shortness of breath, dyspnea, or orthopnea. No cough or hemoptysis. GASTROINTESTINAL: Negative for abdominal pain, nausea, vomiting, diarrhea, or constipation. GENITOURINARY: No hematuria, dysuria, or urinary incontinence. PSYCHIATRIC: Negative for anxiety, depression, or psychoses. ENDOCRINE: Positive for hypothyroidism. MUSCULOSKELETAL: Generalized weakness. No arthralgias or myalgias. NEUROLOGIC: Negative for seizure, stroke, or migraine headache. HEMATOLOGIC: Chemo-induced cytopenias. PHYSICAL EXAMINATION: GENERAL: A very pleasant 83-year-old female patient, awake, alert and appropriate, in no acute distress. VITAL SIGNS: Temperature is 36.5, pulse 62, respiratory rate 22, blood pressure 119/44. SKIN: No petechiae, ecchymosis, or overt rash otherwise. HEENT: The patient is edentulous. Head is atraumatic, normocephalic. Eyes, PERRLA, EOMI. Sclerae nonicteric. Nares are patent without rhinorrhea or discharge. No buccal lesions or ulcerations. NECK: Supple. HEART: Regular rate and rhythm. No clicks, rubs, or murmurs. LUNGS: Clear to auscultation bilaterally. ABDOMEN: Obese, soft, nontender, nondistended. EXTREMITIES: No clubbing, cyanosis, or edema. MUSCULOSKELETAL: Strength and pulses are equal in all 4 quadrants. NEUROLOGICAL: She is awake, alert, and oriented x3. Cranial nerves are grossly intact. LABORATORY DATA: WBC count 2740, hemoglobin 7.8, platelet count 157,000. Sodium 139, potassium 3.4, chloride 105, carbon dioxide 27, BUN 19, creatinine 0.68, albumin 1.5. IMPRESSION: 1. Infected right breast wound. 2. Metastatic breast cancer. 3. Pressure ulcer of the buttock. 4. Hypoalbuminemia. 5. General clinical decline. PLAN: Sonia is a pleasant 83-year-old female patient of Dr. Macedo, who had been receiving weekly Abraxane as salvage. She estimates her last chemo was approximately 2 weeks ago. Briefly discussed Sonia's case with our costume technician who has seen Sonia frequently. Apparently, she has been in a steady decline over the past several weeks. She is now at a point where she is unable to perform activities of daily living and requires assistance from her son who lives nearby. Apparently palliative consult is on the horizon for which I do not disagree. The patient advised me that she would really like to discuss with Dr. Barnett directly regarding any treatment moving forward. I suspect if Dr. Barnett agrees, Sonia will enter outpatient hospice at some point. I agree with medical management from a therapeutic standpoint. Apparently her breast wound has grown Staph aureus, which is not surprising. We will continue to follow her periodically during her stay. I will advise Dr. Barnett of Sonia's admission to hospital and her desire to speak to him directly. CARLOZ
[2019-02-23] MEDS: NSS + 20MEQ KCL 20 MEQ/1,000 ML BAG IV SCH ×2 (09:22→22:03)
[2019-02-23] MEDS: metroNIDAZOLE 0.75% TOPICAL GEL 45 GM TUBE TOP SCH ×2 (09:24→22:03)
[2019-02-23] MEDS: hydroCHLOROthiazide 25 MG TAB PO SCH (09:27)
[2019-02-23] MEDS: CALCIUM 600MG + VIT D 400 IU TAB PO SCH (09:28)
--- NOTE | 2019-02-23 11:00 | Pain Management Consultation ---
Date of Consultation February 23, 2019 Assessment & Plan (1) Infected open wound: 1. While speaking with the patient about utilization of oral narcotics she reports she is hesitant to utilize Percocet due to its potency. Therefore Percocet was discontinued and recommend hydrocodone 5/3 25 mg scheduled 30 to 60 minutes prior to dressing changes and every 6 hours on a as needed basis. 2. Utilize IV morphine as back-up only 3. Can consider utilization of medication such as nortriptyline or Cymbalta to assist in descending regulation of pain however it until disposition/placement has been determined would hold on these medications at this time. These may be utilized on an outpatient basis if need be. 4. Thank you for this consultation please call with any questions (2) Stage II pressure ulcer of buttock: (3) Wound of right breast: Encounter type: initial encounter Qualified Code(s): S21.001A - Unspecified open wound of right breast, initial encounter (4) Breast cancer metastasized to lung: Laterality: right Qualified Code(s): C50.911 - Malignant neoplasm of unspecified site of right female breast; C78.00 - Secondary malignant neoplasm of unspecified lung History of Present Illness Reason for Consultation: Med management Attending Physician: Noman Deshpande MD History of Present Illness 83-year-old female with metastatic breast cancer now status post radiation therapy to right breast. She reports that she has pain on a constant basis over her right breast and stage II pressure buttock ulcer wound but reports that she can tolerate the buttock wound at this time with limited difficulty. She does report that she has significant pain with any dressing changes over her right breast. She reports that pain has been improved with utilization of IV morphine but has concerns over utilization with oral Percocet. She denies any side effects of the medications including mental sedation or constipation. She reports pain 2-3 out of 10 at rest and up to 7-8 out of 10 with dressing changes. She particular reports that " tape removal with dressing changes is the worst part." She denies any difficulty with bowel or bladder incontinence, motor weakness, decreased sensation over her limbs. She has no other consti tutional complaints at this time. Pain Assessment Full Body Front + Back: 1. 2. Allergies Allergy/AdvReac Type Severity Reaction Status Date / Time latex Allergy Mild RASH AT Verified 02/22/19 12:07 SITE Home Medications Home Medications Medication Instructions Recorded Confirmed Type Calcium 600 + D(3) 1 cap PO DAILY 07/16/18 02/22/19 History atorvastatin 10 mg PO QPM 07/16/18 02/22/19 History hydrochlorothiazide 12.5 mg PO QAM 07/16/18 02/22/19 History levothyroxine 88 mcg PO QAM 07/16/18 02/22/19 History potassium chloride 20 meq PO QDL 07/16/18 02/22/19 History prednisone 5 mg PO QDL 07/16/18 02/22/19 History ondansetron HCl 8 mg tablet 8 mg PO TID PRN 12/01/18 02/22/19 History doxycycline hyclate 100 mg capsule 100 mg PO BID 01/14/19 02/22/19 History acetaminophen [Tylenol Extra 1,000 mg PO UD PRN 02/22/19 02/22/19 History Strength] metronidazole 1 applic TOPICAL UD 02/22/19 02/22/19 History rivaroxaban [Xarelto] 20 mg PO QAM 02/22/19 02/22/19 History Patient History Medical History History of chemotherapy (Acute) Abraxane x 5 cycles q 3 weeks Anemia HX OF Breast cancer Diagnosed 06/04/18 - 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 Father , Passed age 87 of stroke No problems noted. Sister , Passed age 45 of ovarian [place] No problems noted. Sister No problems noted. Sister No problems noted. Brother , Passed age 7 in an MVA No problems noted. Brother No problems noted. Brother No problems noted. Son , Passed age 45 of stroke No problems noted. Son No problems noted. Social History Preferred Language: Turkmen Communication Ability: Effective Visual Impairment: Limited Hearing Ability: Hard of Hearing Tax Representative Required: No Beliefs That Will Affect Care: Nondenominational Nondenominational Beliefs: JEHOVAH'S WITNESS marital status: Current Living Situation: Alone current occupational status: retired current occupation: Retired Housewife Other Information That Helps Us Care for You: No Feels Safe at Home: Yes Safety Concerns: Feels Safe At This Time Smoking Status: Never smoker Do You Dip or Chew Tobacco: No ; Second Hand Exposure: No ; Hx Alcohol Use: No Hx Substance Use: No caffeine: Yes (Occasional) during the past year weight has: remained stable Dental Care, Regularly: No Physical Exam Physical Exam: Constitutional: Frail-appearing Psych: Awake, alert, and oriented 3 Recent memory appears grossly intact, with minor difficulty remembering events Eyes: Pupils are equally round and reactive to light with normal size pupils, eyelids appear normal Ear, nose, mouth, and throat: Moist nasal and oral membranes, lips and tongues appear normal, no external ear abnormalities are noted Neck: The trachea is midline without deviation and no thyromegaly is noted Respiratory: Normal respiratory effort without distress, no audible wheezes or rhonchi CV: Normal S1 and S2 Chest: Over the right breast is a large wound dressing which was not removed. Images of her wound as per documentation in EMR photos were reviewed GI/abdomen: Non-tender without guarding, soft Musculoskeletal: Head is normocephalic and atraumatic, gait was not observed Cervical: Lordotic curve: Normal Range of motion is normal with extension, flexion, side-bending, rotation Strength: Strength is grossly equal bilaterally with 5 out of 5 strength in all planes Lumbar: Strength: Strength is grossly equal bilaterally with 5 out of 5 strength in all planes Skin: R breast and buttock wounds as photo documented in EMR Neuro: No nystagmus noted, the tongue is midline, the patient is able to rotate their head bilaterally : Deferred
[2019-02-23] MEDS: POTASSIUM CHLORIDE 10 MEQ TABCR PO SCH (14:09)
[2019-02-23] MEDS: predniSONE 5 MG TAB PO SCH (14:09)
--- NOTE | 2019-02-23 17:43 | Wound Consultation ---
Date of Consultation February 23, 2019 Assessment & Plan (1) Wound of right breast: No debridement was required. Wound will be dressed with metrogel. Radiation burn will be dresses with Caredress. Wounds covered with Abd. Change q shift. Will check wound culture. Will continue to follow. Thank you for allowing me to participate in the care of this patient. (2) Stage II pressure ulcer of buttock: continue barrier cream History of Present Illness Attending Physician: Jesus Holder DO This is a 83 year old female known to wound clininic with a history of metastatic breast cancer, hypertension, radiation burn to right breast and chronically infected wounds admitted with general weakness. Weakness thought to be due at least in part to chronically infected wound. Allergies Allergy/AdvReac Type Severity Reaction Status Date / Time latex Allergy Mild RASH AT Verified 02/22/19 12:07 SITE Home Medications Home Medications Medication Instructions Recorded Confirmed Type Calcium 600 + D(3) 1 cap PO DAILY 07/16/18 02/22/19 History atorvastatin 10 mg PO QPM 07/16/18 02/22/19 History hydrochlorothiazide 12.5 mg PO QAM 07/16/18 02/22/19 History levothyroxine 88 mcg PO QAM 07/16/18 02/22/19 History potassium chloride 20 meq PO QDL 07/16/18 02/22/19 History prednisone 5 mg PO QDL 07/16/18 02/22/19 History ondansetron HCl 8 mg tablet 8 mg PO TID PRN 12/01/18 02/22/19 History doxycycline hyclate 100 mg capsule 100 mg PO BID 01/14/19 02/22/19 History acetaminophen [Tylenol Extra 1,000 mg PO UD PRN 02/22/19 02/22/19 History Strength] metronidazole 1 applic TOPICAL UD 02/22/19 02/22/19 History rivaroxaban [Xarelto] 20 mg PO QAM 02/22/19 02/22/19 History Patient History Medical History History of chemotherapy (Acute) Abraxane x 5 cycles q 3 weeks Anemia HX OF Breast cancer Diagnosed 06/04/18 - 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 Father , Passed age 87 of stroke No problems noted. Sister , Passed age 45 of ovarian CA No problems noted. Sister No problems noted. Sister No problems noted. Brother , Passed age 7 in an MVA No problems noted. Brother No problems noted. Brother No problems noted. Son , Passed age 45 of stroke No problems noted. Son No problems noted. Social History Preferred Language: Upper Sorbian Communication Ability: Impaired Visual Impairment: Limited Hearing Ability: Hard of Hearing Principal Data Architect Required: No Beliefs That Will Affect Care: Restorationism Restorationism Beliefs: MORMON marital status: Current Living Situation: Alone current occupational status: retired current occupation: Retired Housewife Other Information That Helps Us Care for You: No Feels Safe at Home: Yes Safety Concerns: Feels Safe At This Time Smoking Status: Never smoker Do You Dip or Chew Tobacco: No ; Second Hand Exposure: No ; Hx Alcohol Use: No Hx Substance Use: No caffeine: Yes (Occasional) during the past year weight has: remained stable Dental Care, Regularly: No Review of Systems Review of Systems: All systems reviewed & are unremarkable except as noted in HPI & below Complaining of pain at wound / radiation sight Physical Exam Skin: wound measuring as recorded in nursing documentation. Patient has necrotic, fungating mass at left breast. Periwound with radiation burn. There is large amount of drainage. Neurologic: awake; not confused Psychiatric: A+Ox3, euthymic affect Results & Data Vital Signs (Past 12 Hours) Vital Signs Temp Pulse Pulse Resp BP Pulse Ox 02/23/19 15:17 36.7 C 65 17 122/47 L 94 02/23/19 11:24 36.4 C L 66 22 150/48 H 97 08/12/19 11:13 56 L 02/23/19 07:23 36.5 C 62 22 119/44 L 97 (1) Wound of right breast Encounter type: initial encounter Qualified Code(s): S21.001A - Unspecified open wound of right breast, initial encounter
[2019-02-23] MEDS: RIVAROXABAN 20 MG TAB PO SCH (18:04)
--- NOTE | 2019-02-23 20:59 | Family Medicine Progress Note ---
Date of Service February 23, 2019 Assessment & Plan (1) Generalized weakness: 83 year old woman with metastatic breast cancer status post numerous radiation treatments and chemotherapy, currently on abraxane salvage therapy who is here for nonhealing radiation induced wound and failure to thrive Breast Cancer Oncology consulted, appears to be terminal and goals of care discussion needs to be had with patient and family. Doctor Ericka is patient's primary oncologist who is out of town today Will consult palliative care to meet family tomorrow. Chest Wound Infected appearing and non healing Wound care following Keeping wound clean and dressed Vanc for infected wound Buttock Wound Air Mattress to distribute pressure points Frequent repositioning Dehydration/Poor PO intake Normal saline with 20 meq KCl at 80 ml an hour Supplementing with Boost F/E/N: Regular with boost supplementation DVT PPx: rivaroxaban Dispo: PCU (2) Ambulatory dysfunction: (3) Anemia: (4) Dehydration: (5) Infected open wound: (6) Stage II pressure ulcer of buttock: (7) 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 I agree with the impression and plan as noted above. Consult palliative care in AM. Subjective Sonia Azul is uncomfortable today, her oral pain medication is making her very nauseous and she is dry heaving. Her pain is also poorly controlled and she expresses great discomfort. She has no other complaints than the pain in her chest and her backside when she sits up. She is breathing well, endorses no abdominal pain. She is trying to eat but her appetite is poor and has been at home. Review of Systems Review of Systems: All systems reviewed & are unremarkable except as noted in HPI & below Physical Exam Constitutional: + cachectic and cooperative; + not well nourished, no acute distress, no altered mental status and + uncomfortable Eyes: PERRL, conjunctivae normal, anicteric sclerae Respiratory: normal respiratory effort; no respiratory distress and no labored breathing Auscultation: lungs clear to auscultation bilaterally Cardiovascular: Rate/Rhythm: regular rate and regular rhythm Heart Sounds: + murmur; no click, no gallop and no cardiac rub Extremities: + calf tenderness; no edema Gastrointestinal (Abdomen): Inspection/Auscultation: abdomen normal to inspection; abdomen not distended Percussion/Palpation: abdomen soft; abdomen nontender Results & Data Vital Signs (Past 12 Hours) Vital Signs Temp Pulse Pulse Resp BP Pulse Ox 02/23/19 15:17 36.7 C 65 17 122/47 L 94 02/23/19 11:24 36.4 C L 66 22 150/48 H 97 02/23/19 11:13 56 L PG Care Time/CCT Total # of Minutes Spent Total Time Spent with Patient: Total time spent is greater than 50% in coordination of care (as documented) at patient's floor/unit and/or counseling patient: Resident Activity Tracking Resident Involvement: Resident Care Provided Care Provided: Adult Hospital Medicine (1) Anemia Anemia type: unspecified type Qualified Code(s): D64.9 - Anemia, unspecified (2) 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
[2019-02-23] MEDS: VANCOMYCIN HCL 1,250 MG in SODIUM CHLORIDE 0.9% 250 ML IV SCH (22:02)
[2019-02-23] MEDS: ATORVASTATIN 10 MG TAB PO SCH (22:03)
[2019-02-23] MEDS: ONDANSETRON INJ 2 MG/ML 2 ML VIAL IV PRN (22:10)
[2019-02-24] MEDS ORDERED: HYDROCODONE/ACETAMOPHEN 5/325MG TAB PO PRN (06:00)
[2019-02-24] MEDS: LEVOTHYROXINE SODIUM 88 MCG TABLET PO SCH (06:18)
[2019-02-24 06:39] LABS: Hematocrit (blood only) 28.9 % (37-47); Hemoglobin 9.4 g/dL (12.0-16.0); Mean Corpuscular Hgb Conc 32.5 g/dL (32-36); Mean Corpuscular Volume 94.4 fL (80-100); Mean Platelet Volume 9.6 fL (7.4-10.4); Platelet Count 147 K/uL (130-400); RDW Coefficient of Variation 19.2 % (11.5-14.5); RDW Standard Deviation 65.5 fL (36.4-46.3); Red Blood Count 3.06 M/uL (4.2-5.4)
[2019-02-24 07:07] LABS: Albumin Level 1.6 gm/dl (3.4-5.0); Anisocytosis Present; BUN Creatinine Ratio 24.3 (10-20); Calcium 8.5 mg/dl (8.5-10.1); Creatinine Clr Calc Pharmacy 77.1 ml/min; Eosinophils # (auto) 0.04 K/uL (0-0.5); Eosinophils % (auto) 1.1 %; Est GFR (African American) 96.9; Est GFR (Non-African American) 83.6; Immature Granulocytes # (auto) 0.03 K/uL (0.00-0.02); Immature Granulocytes % (auto) 0.9 %; Lymphocytes % (auto) 17.1 %; Monocytes # (auto) 0.49 K/uL (0.11-0.59); Neutrophils # (auto) 2.34 K/uL (1.4-6.5); Neutrophils % (auto) 66.9 %; Potassium 3.5 mmol/L (3.5-5.1); Toxic Granulation 3+
[2019-02-24 07:09] LABS: Albumin Globulin Ratio 0.4 (0.9-2); Bilirubin,Total 0.6 mg/dl (0.2-1); Globulin 3.6 gm/dl (2.5-4.0); Total Protein 5.2 gm/dl (6.4-8.2)
--- NOTE | 2019-02-24 09:48 | Family Medicine Progress Note ---
Date of Service February 24, 2019 Assessment & Plan (1) Generalized weakness: 83 year old woman with metastatic breast cancer status post numerous radiation treatments and chemotherapy, currently on abraxane salvage therapy who is here for nonhealing radiation induced wound and failure to thrive Breast Cancer Oncology consulted, appears to be terminal and goals of care discussion needs to be had with patient and family. Doctor Ericka is patient's primary oncologist who is out of town today Will consult palliative care to meet family tomorrow. Patient tells me she does not want further treatment, will further discuss with palliative care team and oncology After discussion with patient she tells me she would like her CODE STATUS changed to DNR/DNI Chest Wound Infected appearing and non healing Wound care following Keeping wound clean and dressed Vanc for infected wound Buttock Wound Air Mattress to distribute pressure points Frequent repositioning Dehydration/Poor PO intake Normal saline with 20 meq KCl at 80 ml an hour Patient is declining boost or Ensure F/E/N: Regular patient declining boost or Ensure, encourage patient to eat more protein to help with wound healing DVT PPx: rivaroxaban Dispo: Transferring to [facility] (2) Ambulatory dysfunction: (3) Anemia: (4) Dehydration: (5) Infected open wound: (6) Stage II pressure ulcer of buttock: (7) 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 I agree with the impression and plan as noted above. I discussed the case with the palliative care team who will see the patient today. Subjective Patient well this morning denies undue pain, feels like she is much less nauseous than she was yesterday has not had any nausea vomiting or retching. She tells me that she has decided she does not want to go through with any further cancer therapies and that she is concerned that her son will not understand. She remarks that she does not feel like she can be cured of this cancer and the treatments are more painful than they are helpful. She acknowledges that this will mean that she will pass sooner rather than later and she is accepting of that. She says she is a woman of great haley and that she is a Sikhism. We discussed her CODE STATUS and patient made it clear that should her heart stop she would not want any compressions and should she have difficulty breathing she would not want any intubation. Review of Systems Review of Systems: All systems reviewed & are unremarkable except as noted in HPI & below Physical Exam Constitutional: + cachectic and cooperative; + not well nourished, no acute distress, no altered mental status and + uncomfortable Eyes: PERRL, conjunctivae normal, anicteric sclerae Respiratory: normal respiratory effort; no respiratory distress and no labored breathing Auscultation: lungs clear to auscultation bilaterally Cardiovascular: Rate/Rhythm: regular rate and regular rhythm Heart Sounds: + murmur; no click, no gallop and no cardiac rub Extremities: + calf tenderness; no edema Gastrointestinal (Abdomen): Inspection/Auscultation: abdomen normal to inspection; abdomen not distended Percussion/Palpation: abdomen soft; abdomen nontender Results & Data Vital Signs (Past 12 Hours) Vital Signs Temp Pulse Pulse Resp BP Pulse Ox 02/24/19 07:20 36.9 C 71 16 154/56 H 98 02/24/19 04:00 36.9 C 65 16 130/52 L 97 02/24/19 00:23 36.3 C L 68 18 146/49 H 94 PG Care Time/CCT Total # of Minutes Spent Total Time Spent with Patient: Total time spent is greater than 50% in coordination of care (as documented) at patient's floor/unit and/or counseling patient: Resident Activity Tracking Resident Involvement: Resident Care Provided Care Provided: Adult Hospital Medicine (1) Anemia Anemia type: unspecified type Qualified Code(s): D64.9 - Anemia, unspecified (2) 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
[2019-02-24] MEDS: ONDANSETRON INJ 2 MG/ML 2 ML VIAL IV PRN ×2 (09:57→15:42)
[2019-02-24] MEDS: MoRPHine SULFATE 2 MG/ML CARP IV PRN (09:57)
[2019-02-24] MEDS: NSS + 20MEQ KCL 20 MEQ/1,000 ML BAG IV SCH ×2 (09:58→22:52)
[2019-02-24] MEDS: CALCIUM 600MG + VIT D 400 IU TAB PO SCH (10:06)
[2019-02-24] MEDS: hydroCHLOROthiazide 25 MG TAB PO SCH (10:06)
[2019-02-24] MEDS: metroNIDAZOLE 0.75% TOPICAL GEL 45 GM TUBE TOP SCH ×2 (10:40→21:31)
[2019-02-24] MEDS ORDERED: VANCOMYCIN TROUGH ONE ×2 (11:30→19:30)
[2019-02-24] MEDS: POTASSIUM CHLORIDE 10 MEQ TABCR PO SCH (11:33)
[2019-02-24] MEDS: predniSONE 5 MG TAB PO SCH (11:33)
[2019-02-24] MEDS: VANCOMYCIN HCL 1,250 MG in SODIUM CHLORIDE 0.9% 250 ML IV SCH (12:36)
--- NOTE | 2019-02-24 14:40 | Palliative Care Consultation ---
Date of Consultation February 24, 2019 Assessment & Plan (1) Goals of care, counseling/discussion: -83 year old female with PMH breast cancer cancer metastatic to lungs, hypertension, stage II pressure ulcer of buttock, infant directed open wound located at her upper chest and right breast area anemia, leukopenia, presented to hospital two days ago with of nonhealing infected wound of right breast, generalized weakness, malaise and uncontrolled pain. Patient completed radiation therapy for the right metastatic breast cancer and she is currently on Abraxane on under supervision of Dr. Javier Barnett. Patient has had mixed response to treatment with improvement of primary cancer but decline of all other issues. She was admitted for supportive care. There have been several discussions about code status and goals of care given patient's age, comorbidities, and continued decline. Patient decided she would like to be a DNR and states that she does not want to chemotherapy if she were to become well enough to do so. Palliative care is consulted to discuss goals of care. -Met with patient first this morning in room 206. She is AA&O x4, pleasant. -Patient's main goal is for comfort and quality of life. She states that she does not tolerate the chemotherapy well and she realizes she is declining. Her weakness has progressed to the point of not being able to walk or perform any ADLs without the help of her son/POA, Ever Azul. She did ask that I return when Delroy is present. -Returned to patient's room this afternoon when Delroy was at bedside-- room 456. We discussed patient's goals of care-- focus on comfort and quality of life. -Patient is not ready for hospice and not ready to say that she does not want to come to the hospital for medical treatment if needed. -She did confirm that she is a DNR/DNI, and does not want to continue any chemotherapy. Delroy is supportive of patietn's decisions. -POLST form explained in detail and completed as follows: DNR, limited additional interventions, abx with comfort as the goal, trial period of IVF but NO feeding tube. -Plan is for patient to go to SNF upon discharge. She and her son are aware that she can have hospice in SNF in the future. -Has pain in right breast/chest area from large wound. Currently receiving IV morphine 2mg PRN for pain-- tolerating okay. Consider switching to Oxycodone IR 5mg in preparation for discharge. -PPS 40%. (2) Infected open wound: (3) Breast cancer metastasized to lung: Laterality: right Qualified Code(s): C50.911 - Malignant neoplasm of unspecified site of right female breast; C78.00 - Secondary malignant neoplasm of unspecified lung (4) Generalized weakness: Supervising Physician Co-Signing Physician Notes Chart reviewed, patient seen and examined-patient's granddaughter and her granddaughter's caregiver at bedside. PE: Patient awake alert, no acute distress. HEENT: EOMI, hearing within normal limits Respirations: Clear breath sounds bilaterally CV: Regular rate, no edema Abdomen: Soft, nontender Skin: Images of right breast wound reviewed-did not examine her breasts directly due to non- family at bedside Neuro: Alert and oriented Agree with above note, assessment and plan as per TERRI Olson-we will continue to follow while patient is inpatient and assist patient and family with medical decision making. History of Present Illness Reason for Consultation: Goals of care Requesting Physician: Attending Physician: Jesus Holder DO History of Present Illness This 83 year old female with PMH breast cancer cancer metastatic to lungs, hypertension, stage II pressure ulcer of buttock, infant directed open wound located at her upper chest and right breast area anemia, leukopenia, presented to hospital two days ago with of nonhealing infected wound of right breast, generalized weakness, malaise and uncontrolled pain. Patient completed radiation therapy for the right metastatic breast cancer and she is currently on Abraxane on under supervision of Dr. Javier Barnett. Patient has had mixed response to treatment with improvement of primary cancer but decline of all other issues. She was admitted for supportive care. There have been several discussions about code status and goals of care given patient's age, comorbidities, and continued decline. Patient decided she would like to be a DNR and states that she does not want to chemotherapy if she were to become well enough to do so. Palliative care is consulted to discuss goals of care. Thank you kindly for this consult. I will follow as needed. Allergies Allergy/AdvReac Type Severity Reaction Status Date / Time latex Allergy Mild RASH AT Verified 02/22/19 12:07 SITE Home Medications Home Medications Medication Instructions Recorded Confirmed Type Calcium 600 + D(3) 1 cap PO DAILY 07/16/18 02/22/19 History atorvastatin 10 mg PO QPM 07/16/18 02/22/19 History hydrochlorothiazide 12.5 mg PO QAM 07/16/18 02/22/19 History levothyroxine 88 mcg PO QAM 07/16/18 02/22/19 History potassium chloride 20 meq PO QDL 07/16/18 02/22/19 History prednisone 5 mg PO QDL 07/16/18 02/22/19 History ondansetron HCl 8 mg tablet 8 mg PO TID PRN 12/01/18 02/22/19 History doxycycline hyclate 100 mg capsule 100 mg PO BID 01/14/19 02/22/19 History acetaminophen [Tylenol Extra 1,000 mg PO UD PRN 02/22/19 02/22/19 History Strength] metronidazole 1 applic TOPICAL UD 02/22/19 02/22/19 History rivaroxaban [Xarelto] 20 mg PO QAM 02/22/19 02/22/19 History Patient History Medical History History of chemotherapy (Acute) Abraxane x 5 cycles q 3 weeks Anemia HX OF Breast cancer Diagnosed 06/04/18 - 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 Father , Passed age 87 of stroke No problems noted. Sister , Passed age 45 of ovarian CA No problems noted. Sister No problems noted. Sister No problems noted. Brother , Passed age 7 in an MVA No problems noted. Brother No problems noted. Brother No problems noted. Son , Passed age 45 of stroke No problems noted. Son No problems noted. Social History Preferred Language: Azerbaijani Communication Ability: Impaired Visual Impairment: Limited Hearing Ability: Hard of Hearing Sponsorship Coordinator Required: No Beliefs That Will Affect Care: Scientology Scientology Beliefs: EPISCOPALIAN marital status: Current Living Situation: Alone current occupational status: retired current occupation: Retired Housewife Other Information That Helps Us Care for You: No Feels Safe at Home: Yes Safety Concerns: Feels Safe At This Time Smoking Status: Never smoker Do You Dip or Chew Tobacco: No ; Second Hand Exposure: No ; Hx Alcohol Use: No Hx Substance Use: No caffeine: Yes (Occasional) during the past year weight has: remained stable Dental Care, Regularly: No Review of Systems Constitutional: + weakness Respiratory: + dyspnea on exertion Cardiovascular: no chest pain and no edema Gastrointestinal: no abdominal pain and no nausea Neurologic: no confusion Psychiatric: no depression and no anxiety Physical Exam Constitutional: + ill appearing and + overweight ENMT: Ears: + hearing impairment (mildly VENETIE) Neck: normal visual inspection Respiratory: normal respiratory effort, lungs clear to auscultation Auscultation: + diminished lung sounds Cardiovascular: RRR, no murmur, no edema Gastrointestinal (Abdomen): Inspection/Auscultation: abdomen normal to inspection and normal bowel sounds Percussion/Palpation: abdomen soft Neurologic: moves all extremities and awake Psychiatric: A+Ox3, euthymic affect Insight: excellent insight Results & Data Vital Signs (Past 12 Hours) Vital Signs Temp Pulse Pulse Pulse Resp BP Pulse Ox 02/24/19 12:53 36.8 C 75 18 149/69 H 90 02/24/19 11:40 36.4 C L 69 23 189/78 H 100 02/24/19 08:00 70 02/24/19 07:20 36.9 C 71 16 154/56 H 98 02/24/19 04:00 36.9 C 65 16 130/52 L 97 PG Care Time/CCT Total # of Minutes Spent Total Time Spent with Patient: Total time spent is greater than 50% in coordination of care (as documented) at patient's floor/unit and/or counseling patient: Time Spent Midlevel 70 minutes with >50% of the time spent at bedside with patient and family discussing condition, GOC, and POLST form.
[2019-02-24] MEDS: CIPROFLOXACIN 400 MG/200 ML BAG IV SCH (15:49)
--- NOTE | 2019-02-24 16:01 | Pharmacy Report ---
Pharmacy Abx Dose Short Note - Date of Service February 24, 2019 - Assessment & Plan Assessment 02/24 Patient on day # 3/10 of vancomycin SCr improved further to 0.59 R breast culture with gram + and gram - on gram stain but preliminary culture growing gram - bacilli? Cipro has been added until final culture results available 02/23/19 Patient on day # 2/10 of vancomycin therapy for non-healing breast cellulitis SCr has improved from 0.81 -> 0.68, necessitating an adjustment to vancomycin frequency 02/22/19 83 year old F admitted for non-healing breast cellulitis s/p radiation therapy for breast cancer. Patient was recently on Omnicef and Keflex antibiotics. Vancomycin ordered on admission. Blood cultures obtained. Plan Vancomycin * Trough level of 15.7 mcg/mL is therapeutic. This was drawn prior to steady state so was going to adjust frequency but prior dose of vanc administered 2 hrs late; therefore, true trough would have been lower * Continue dose of 1250 mg IV every 16 hours * Goal trough level : 10 to 15 mcg/mL * No repeat level ordered at this time. Will need to recheck in another 2-3 days if vancomycin to be continued. Pharmacy will continue to follow and will adjust dose/frequency as necessary. Thank you.
[2019-02-24] MEDS: RIVAROXABAN 20 MG TAB PO SCH (16:15)
[2019-02-24] MEDS ORDERED: MICONAZOLE NITRATE POWDER 43 GM EXT PRN (20:09)
[2019-02-24] MEDS: ATORVASTATIN 10 MG TAB PO SCH (21:48)
[2019-02-25] MEDS: VANCOMYCIN HCL 1,250 MG in SODIUM CHLORIDE 0.9% 250 ML IV SCH (03:29)
[2019-02-25] MEDS: CIPROFLOXACIN 400 MG/200 ML BAG IV SCH (03:34)
[2019-02-25] MEDS: LEVOTHYROXINE SODIUM 88 MCG TABLET PO SCH (05:51)
[2019-02-25] MEDS: NSS + 20MEQ KCL 20 MEQ/1,000 ML BAG IV SCH ×2 (05:51→18:24)
[2019-02-25 06:29] LABS: Basophils # (auto) 0.01 K/uL (0-0.2); Basophils % (auto) 0.3 %; Eosinophils # (auto) 0.03 K/uL (0-0.5); Eosinophils % (auto) 0.9 %; Hematocrit (blood only) 23.8 % (37-47); Hemoglobin 8.1 g/dL (12.0-16.0); Immature Granulocytes # (auto) 0.05 K/uL (0.00-0.02); Immature Granulocytes % (auto) 1.5 %; Lymphocytes # (auto) 0.51 K/uL (1.2-3.4); Lymphocytes % (auto) 15.2 %; Mean Corpuscular Volume 93.7 fL (80-100); Mean Platelet Volume 9.7 fL (7.4-10.4); Monocytes # (auto) 0.58 K/uL (0.11-0.59); Monocytes % (auto) 17.3 %; Neutrophils # (auto) 2.17 K/uL (1.4-6.5); Neutrophils % (auto) 64.8 %; Platelet Count 141 K/uL (130-400); RDW Coefficient of Variation 19.2 % (11.5-14.5); Red Blood Count 2.54 M/uL (4.2-5.4); White Blood Count 3.35 K/uL (4.8-10.8)
[2019-02-25 07:00] LABS: Albumin Level 1.4 gm/dl (3.4-5.0); BUN Creatinine Ratio 20.1 (10-20); Calcium 8.1 mg/dl (8.5-10.1); Creatinine Clr Calc Pharmacy 84.2 ml/min; Est GFR (African American) 99.7; Potassium 3.4 mmol/L (3.5-5.1)
[2019-02-25 07:04] LABS: Albumin Globulin Ratio 0.5 (0.9-2); Bilirubin,Total 0.4 mg/dl (0.2-1); Globulin 3.1 gm/dl (2.5-4.0); Total Protein 4.5 gm/dl (6.4-8.2)
[2019-02-25] MEDS: MoRPHine SULFATE 2 MG/ML CARP IV PRN (08:00)
[2019-02-25] MEDS: hydroCHLOROthiazide 25 MG TAB PO SCH (08:01)
[2019-02-25] MEDS: CALCIUM 600MG + VIT D 400 IU TAB PO SCH (08:01)
--- NOTE | 2019-02-25 09:37 | Progress Note ---
DATE: 02/25/2019 MEDICAL ONCOLOGY PROGRESS NOTE DIAGNOSES: 1. Infected right breast wound. 2. Metastatic breast cancer. 3. Buttock pressure ulcer. 4. Hypoalbuminemia. 5. General clinical decline. SUBJECTIVE: Sonia was seen and examined at bedside today. Appreciate palliative care's note and input. Engaged in discussion with Sonia regarding her decisions moving forward, totally agree that she is not suitable for further chemotherapy. I did attempt to convince her hospice may be a good option for her moving forward. She is heading towards a longterm facility upon discharge because of difficulty ambulation. Her pain is well controlled. Nursing reports no overnight difficulties otherwise. OBJECTIVE: GENERAL: A very pleasant 83-year-old female patient, awake, alert and appropriate, in no acute distress. VITAL SIGNS: Temperature 36.3, pulse 61, respiratory rate 20, blood pressure 158/68. SKIN: Without overt rash or lesion. HEENT: Oral mucosa without erythema or ulceration. NECK: Supple. Trachea midline. HEART: Regular rate and rhythm. LUNGS: Clear to auscultation bilaterally. ABDOMEN: Soft, nontender, nondistended. EXTREMITIES: No clubbing, cyanosis or edema. NEUROLOGICAL: Grossly intact. LABORATORY DATA: WBC count 3350, hemoglobin 8.1, platelet count 141,000. Sodium 140, potassium 3.4, chloride 105, carbon dioxide 28, BUN 11, creatinine 0.54. IMPRESSION: 1. Electrolyte anomalies. 2. Infected right breast wound 3. Metastatic breast cancer. 4. Hypoalbuminemia. 5. Buttock pressure ulcer. 6. General clinical decline. PLAN: It is my pleasure to talk to Sonia this morning about her future plans therapeutically. Sonia has decided not to pursue any further chemo. She is somewhat undecided regarding hospice care. Tried to encourage her that early enrollment is not necessarily negative. Discussed it further with Dr. Barnett, he is on board with her decision as well. At this point, we will officially sign off. Agree with her current medical management including antimicrobials moving forward. I anticipate she will be discharged within the next 24-48 hours barring a new clinical development.
[2019-02-25] MEDS: predniSONE 5 MG TAB PO SCH (11:07)
[2019-02-25] MEDS: POTASSIUM CHLORIDE 10 MEQ TABCR PO SCH (11:07)
[2019-02-25] MEDS: metroNIDAZOLE 0.75% TOPICAL GEL 45 GM TUBE TOP SCH ×2 (11:08→21:17)
[2019-02-25] MEDS ORDERED: CEFEPIME CONSULT ACTIVE PRN (13:51)
--- NOTE | 2019-02-25 14:07 | Palliative Care Progress Note ---
Date of Service February 25, 2019 Assessment & Plan (1) Goals of care, counseling/discussion: -Patient continues to have pain in right breast area from radiation burn. Hospitalist team started fentanyl patch 12mcg/hr. Patient has been cautious to take PRN pain medication because she worries about it making her nauseous. Hopefully a small steady dose of fentanyl will help with the pain with little side effects. -Met with patient's son/POA Ever, discussed discharge planning. [facility] has a bed for patient, but patient is not fond of the [facility]. Delroy had many questions about the care patient would be receiving if she went there. I encouraged him to make a visit. We also discussed adding hospice care after skilled rehab period if patient's goals are still to remain comfortable and not pursue further life prolonging treatment. -POLST form completed 02/24 with patient and her son/POA. -Care managed by hospitalist team. Please contact palliative care with any further needs. (2) Infected open wound: (3) Breast cancer metastasized to lung: (4) Generalized weakness: Subjective Patient is feeling okay today. Used one dose of morphine in 24 hours, but continues to have burning-type pain in right breast area. Met with patient's son outside of room. He had many questions about SNF care, hospice, skilled care, etc. He plans to visit the [facility] to learn more about their services. Patient will probably be skilled initially, then transition to hospice care eventually. Review of Systems Review of Systems: + weakness + dyspnea on exertion no chest pain and no edema no abdominal pain and no nausea no confusion no depression and no anxiety Physical Exam Physical Exam: Constitutional + ill appearing and + overweight ENMT Ears: + hearing impairment (mildly [place]) Neck normal visual inspection Respiratory normal respiratory effort, lungs clear to auscultation Auscultation: + diminished lung sounds Cardiovascular RRR, no murmur, no edema Gastrointestinal (Abdomen) Inspection/Auscultation: abdomen normal to inspection and normal bowel sounds Percussion/Palpation: abdomen soft Neurologic moves all extremities and awake Psychiatric A+Ox3, euthymic affect Insight: excellent insight Results & Data Vital Signs (Past 12 Hours) Vital Signs Temp Pulse Resp BP Pulse Ox 02/25/19 07:28 36.3 C L 61 20 158/68 H 100 Time Spent Midlevel 35 minutes with >50% of the time spent at bedside with patient and family discussing GOC and POC. (1) Breast cancer metastasized to lung Laterality: right Qualified Code(s): C50.911 - Malignant neoplasm of u nspecified site of right female breast; C78.00 - Secondary malignant neoplasm of unspecified lung
[2019-02-25] MEDS: CEFEPIME 2,000 MG in SYRINGE 0 ML IV SCH ×2 (14:17→21:14)
[2019-02-25] MEDS ORDERED: fentaNYL 12 MCG/HR TDSY TD SCH (15:00)
[2019-02-25] MEDS: CHECK FENTANYL PATCH PLACEMENT SCH (17:02)
--- NOTE | 2019-02-25 18:02 | Family Medicine Progress Note ---
Date of Service February 25, 2019 Assessment & Plan (1) Generalized weakness: 83 year old woman with metastatic breast cancer status post numerous radiation treatments and chemotherapy, currently on abraxane salvage therapy who is here for nonhealing radiation induced wound and failure to thrive. Breast Cancer Oncology consulted, appears to be terminal and goals of care discussion needs to be had with patient and family. Decided not to pursue any further chemo Pal care consult: DNR, limited additional interventions, abx with comfort as the goal, trial period of IVF but NO feeding tube. Working on snf placement Chest Wound Infected appearing and non healing Wound care following Keeping wound clean and dressed Cefepime for infected wound. DC'd Cipro/Vanc On IV morphine 2mg PRN for pain at present. Will transition to PO tramadol/nile teminophen moving forward. Pt declines oxycodone 2/2 poor rxn in past. Added Fentanyl Patch Buttock Wound Air Mattress to distribute pressure points Frequent repositioning Dehydration/Poor PO intake Normal saline with 20 meq KCl at 80 ml an hour Patient is declining boost or Ensure FEN/GI: Regular patient declining boost or Ensure, encourage patient to eat more protein to help with wound healing DVT Prophylaxis: rivaroxaban DNR/DNI Dispo: Working with CM for snf placement. Discussing with son as well. Supervising Physician Co-Signing Physician Notes ATTENDING NOTE I saw the patient with the resident physician and confirmed mathews portion of the history and physical exam. I agree with the impression and plan as noted above. We had a meeting with the patient's son today. This being occurred in the currently unoccupied hallway on [address]; at the request of the patient, this conversation was recorded on his phone. In the meeting reviewed the patient's current diagnosis, current care and medications, and reviewed possible locations for placement. All questions were answered and the son seemed pleased with both the care of the patient and the answers provided today. We then saw the patient who who was aware that we were meeting with his son to review her care and placement options. Her pain continues; she does have some side effects to narcotic medications although it is noted that she tolerated fentanyl when given previously in the emergency department. Breast cancer Radiation burn Cellulitis Will try low-dose fentanyl patch today Could trial tramadol for breakthrough pain Continue wound care and antibiotics Adjust antibiotics pending speciation Subjective 83 yo F found in bed this AM in NAD. No reports overnight events. Notes ongoing R chest/breast pain. Some leaking noted on exam. Spoke at length about goals, pt does not want to pursue chemo. Wants to go to snf, but discussing which one at this time with son and CM. No other acute concerns or complaints. Review of Systems Review of Systems: All systems reviewed & are unremarkable except as noted in HPI & below Physical Exam Constitutional: + cachectic Respiratory: normal respiratory effort, lungs clear to auscultation Cardiovascular: RRR, no murmur, no edema Chest (Breasts): Additional Comments: R breast area wet desquamated appearance Tender to touch Bandaged with some leakage Psychiatric: A+Ox3, euthymic affect Results & Data Vital Signs (Past 12 Hours) Vital Signs Temp Pulse Resp BP Pulse Ox 02/25/19 15:05 36.7 C 70 20 139/73 94 02/25/19 07:28 36.3 C L 61 20 158/68 H 100 Laboratory Results Laboratory Results - last 24 hr 02/25/19 02/25/19 05:40 05:40 WBC 3.35 L RBC 2.54 L Hgb 8.1 L Hct 23.8 L MCV 93.7 MCH 31.9 MCHC 34.0 RDW Std Deviation 65.0 H RDW Coeff of Siobhan 19.2 H Plt Count 141 MPV 9.7 Immature Gran % (Auto) 1.5 Neut % (Auto) 64.8 Lymph % (Auto) 15.2 [place] % (Auto) 17.3 Eos % (Auto) 0.9 Baso % (Auto) 0.3 Immature Gran # (Auto) 0.05 H Neut # (Auto) 2.17 Lymph # (Auto) 0.51 L [place] # (Auto) 0.58 Eos # (Auto) 0.03 Baso # (Auto) 0.01 Sodium 140 Potassium 3.4 L Chloride 105 Carbon Dioxide 28 Anion Gap 6.0 BUN 11 Creatinine 0.54 L Est Cr Clr Drug Dosing 84.2 Est GFR ( Amer) 99.7 Est GFR (Non-Af Amer) 86.0 BUN/Creatinine Ratio 20.1 H Glucose 86 Calcium 8.1 L Total Bilirubin 0.4 AST 18 ALT 11 L Alkaline Phosphatase 75 Total Protein 4.5 L Albumin 1.4 L Globulin 3.1 Albumin/Globulin Ratio 0.5 L Medications Administered Current Inpatient Medications Acetaminophen (Tylenol) 650 mg PO Q4H PRN PRN Reason: Pain or Fever Stop: 03/24/19 15:32 Al Hydrox/Mg Hydrox/Simethicone (Maalox) 15 ml PO Q4H PRN PRN Reason: Dyspepsia Stop: 03/24/19 15:32 Atorvastatin Calcium (Lipitor) 10 mg PO QPM [facility] Stop: 03/24/19 20:59 Last Admin: 02/24/19 21:48 Dose: 10 mg Documented by: Fentanyl (Duragesic) 12 mcg TD Q3D [facility] Stop: 03/11/19 14:59 Last Admin: 02/25/19 16:09 Dose: 12 mcg Documented by: Heparin Sodium (Porcine) (Heparin Sod 100 Unit/Ml Flush) 5 ml FLUSH PRN PRN PRN Reason: Flush Stop: 03/25/19 00:29 Hydrochlorothiazide (Hctz) 12.5 mg PO QAM [facility] Stop: 03/25/19 08:59 Last Admin: 02/25/19 08:01 Dose: 12.5 mg Documented by: Potassium Chloride/Sodium Chloride (Normal Saline W/20 Meq Kcl) 20 meq in 1,000 mls @ 80 mls/hr IV .[id number] [facility] Stop: 03/24/19 15:59 Last Admin: 02/25/19 05:51 Dose: 80 mls/hr Documented by: Cefepime HCl 2,000 mg/ Syringe 12.5 mls @ 5 mls/min IV Q8H [facility] Stop: 03/07/19 13:59 Last Admin: 02/25/19 14:17 Dose: 5 mls/min Documented by: Levothyroxine Sodium (Synthroid) 88 mcg PO DAILYBB [facility] Stop: 03/25/19 06:29 Last Admin: 02/25/19 05:51 Dose: 88 mcg Documented by: Magnesium Hydroxide (Milk Of Magnesia) 30 ml PO Q12H PRN PRN Reason: Constipation Stop: 03/24/19 15:32 Metronidazole (Metrogel) 1 appln TOP BID [facility] Stop: 03/04/19 20:59 Last Admin: 02/25/19 11:08 Dose: 1 appln Documented by: Miconazole Nitrate (Desenex) 1 appln EXT PRN PRN PRN Reason: Affected Skin Folds Stop: 03/26/19 20:08 Miscellaneous (Fentanyl Patch Check Placement) 1 ea N/A QS [facility] Stop: 03/27/19 15:59 Last Admin: 02/25/19 17:02 Dose: 1 ea Documented by: Miscellaneous (Fentanyl Patch Remove & Waste) 1 ea N/A Q3D [facility] Stop: 03/30/19 14:54 Miscellaneous Information (Cefepime Consult Active) 1 ea N/A UD PRN PRN Reason: Consult Stop: 03/27/19 13:50 Morphine Sulfate (Morphine Sulfate) 2 mg IV Q3H PRN PRN Reason: Severe Pain Stop: 03/08/19 15:32 Last Admin: 02/25/19 08:00 Dose: 2 mg Documented by: Multivitamins/Minerals (Caltrate Plus) 1 tab PO DAILY [facility] Stop: 03/25/19 08:59 Last Admin: 02/25/19 08:01 Dose: 1 tab Documented by: Ondansetron HCl (Zofran) 4 mg IV Q6H PRN PRN Reason: Nausea Stop: 03/24/19 15:32 Last Admin: 02/24/19 15:42 Dose: 4 mg Documented by: Ondansetron HCl (Zofran Tab) 8 mg PO TID PRN PRN Reason: Nausea Stop: 03/24/19 15:32 Last Admin: 02/23/19 12:42 Dose: 8 mg Documented by: Polyethylene Glycol (Miralax Powder Packet) 17 gm PO DAILY PRN PRN Reason: Constipation Stop: 03/24/19 15:32 Potassium Chloride (Klor-Con M10) 20 meq PO QDL [facility] Stop: 03/25/19 11:29 Last Admin: 02/25/19 11:07 Dose: 20 meq Documented by: Prednisone (Prednisone) 5 mg PO QDL [facility] Stop: 03/25/19 11:29 Last Admin: 02/25/19 11:07 Dose: 5 mg Documented by: Rivaroxaban (Xarelto) 20 mg PO QDD [facility] Stop: 03/25/19 16:29 Last Admin: 02/24/19 16:15 Dose: 20 mg Documented by: Zolpidem Tartrate (Ambien) 5 mg PO HS PRN PRN Reason: Sleep Stop: 03/24/19 15:32 PG Care Time/CCT Total # of Minutes Spent Total Time Spent with Patient: Total time spent is greater than 50% in coordination of care (as documented) at patient's floor/unit and/or counseling patient: Resident Activity Tracking Resident Involvement: Resident Care Provided Care Provided: Adult [facility] Medicine
[2019-02-25] MEDS: RIVAROXABAN 20 MG TAB PO SCH (18:51)
[2019-02-25] MEDS: ATORVASTATIN 10 MG TAB PO SCH (21:17)
[2019-02-26 05:40] LABS: Basophils # (auto) 0.01 K/uL (0-0.2); Basophils % (auto) 0.3 %; Eosinophils # (auto) 0.04 K/uL (0-0.5); Eosinophils % (auto) 1.1 %; Hematocrit (blood only) 24.2 % (37-47); Hemoglobin 8.1 g/dL (12.0-16.0); Immature Granulocytes # (auto) 0.05 K/uL (0.00-0.02); Immature Granulocytes % (auto) 1.4 %; Lymphocytes # (auto) 0.55 K/uL (1.2-3.4); Lymphocytes % (auto) 15.6 %; Mean Corpuscular Hgb Conc 33.5 g/dL (32-36); Mean Corpuscular Volume 93.8 fL (80-100); Mean Platelet Volume 9.6 fL (7.4-10.4); Monocytes # (auto) 0.52 K/uL (0.11-0.59); Monocytes % (auto) 14.8 %; Neutrophils # (auto) 2.35 K/uL (1.4-6.5); Neutrophils % (auto) 66.8 %; Platelet Count 139 K/uL (130-400); RDW Coefficient of Variation 19.4 % (11.5-14.5); RDW Standard Deviation 66.7 fL (36.4-46.3); Red Blood Count 2.58 M/uL (4.2-5.4); White Blood Count 3.52 K/uL (4.8-10.8)
[2019-02-26 06:05] LABS: Albumin Level 1.4 gm/dl (3.4-5.0); BUN Creatinine Ratio 21.5 (10-20); Creatinine Clr Calc Pharmacy 79.8 ml/min; Est GFR (Non-African American) 84.5; Potassium 3.8 mmol/L (3.5-5.1)
[2019-02-26 06:07] LABS: Albumin Globulin Ratio 0.5 (0.9-2); Bilirubin,Total 0.3 mg/dl (0.2-1); Globulin 3.1 gm/dl (2.5-4.0); Total Protein 4.5 gm/dl (6.4-8.2)
[2019-02-26] MEDS: CEFEPIME 2,000 MG in SYRINGE 0 ML IV SCH (06:09)
[2019-02-26] MEDS: LEVOTHYROXINE SODIUM 88 MCG TABLET PO SCH (06:14)
[2019-02-26] MEDS: NSS + 20MEQ KCL 20 MEQ/1,000 ML BAG IV SCH ×2 (06:21→20:41)
[2019-02-26] MEDS: CHECK FENTANYL PATCH PLACEMENT SCH ×4 (09:29→23:44)
[2019-02-26] MEDS: CALCIUM 600MG + VIT D 400 IU TAB PO SCH (09:35)
[2019-02-26] MEDS: hydroCHLOROthiazide 25 MG TAB PO SCH (09:35)
[2019-02-26] MEDS: cefTRIAXone SODIUM 2,000 MG in DEXTROSE 5% 50 ML IV SCH (09:39)
[2019-02-26] MEDS: MoRPHine SULFATE 2 MG/ML CARP IV PRN ×3 (09:39→20:45)
[2019-02-26] MEDS: metroNIDAZOLE 0.75% TOPICAL GEL 45 GM TUBE TOP SCH ×2 (11:45→20:43)
[2019-02-26] MEDS: POTASSIUM CHLORIDE 10 MEQ TABCR PO SCH (12:16)
[2019-02-26] MEDS: predniSONE 5 MG TAB PO SCH (12:16)
--- NOTE | 2019-02-26 14:12 | Family Medicine Progress Note ---
Date of Service February 26, 2019 Assessment & Plan (1) Generalized weakness: 83 year old woman with metastatic breast cancer status post numerous radiation treatments and chemotherapy, currently on abraxane salvage therapy who is here for nonhealing radiation induced wound and failure to thrive. Breast Cancer Oncology consulted, appears to be terminal and goals of care discussion needs to be had with patient and family. Decided not to pursue any further chemo Pal care consult: DNR, limited additional interventions, abx with comfort as the goal, trial period of IVF but NO feeding tube. Working on snf placement --> [facility] has accepted pt Radiation burn with infection Infected appearing and non healing Wound care following Keeping wound clean and dressed IV Ceftriaxone for infected wound (will transition to PO Cefdinir on d/c). DC'd Cipro/Vanc and later cefepime. Added Flagyl today On IV morphine 2mg PRN for pain at present. Will transition to PO tramadol/aceteminophen moving forward. Pt declines oxycodone 2/2 [address] [place] [facility] Added Fentanyl Patch Buttock Wound Air Mattress to distribute pressure points Frequent repositioning Dehydration/Poor PO intake Normal saline with 20 meq KCl at 80 ml an hour Patient is declining boost or Ensure FEN/GI: Regular patient declining boost or Ensure, encourage patient to eat more protein to help with wound healing DVT Prophylaxis: rivaroxaban DNR/DNI Dispo: Working with CM for snf placement. Anticipate d/c tomorrow Supervising Physician Co-Signing Physician Notes I saw the patient with the resident physician for mathews portion of the history and physical exam. I agree with the impression and plan as noted above. The patient seems to have better pain control today, unsure if this is due to the addition of the fentanyl patch or if it is just simply a better day. It does sound as if most of her pain is related to wound care and dressing change. IMPRESSION Radiation burn with infection Breast cancer PLAN Continue wound care Antibiotics, adjust pending speciation Likely discharge and transfer to [facility] for continued wound care and pain management Subjective 83 yo F found in bed this AM getting dressing changed. Appeared to be in moderate pain whenever being worked on, but notes that at rest pain is tolerable. Discussed with pt and son, both seem to be in agreement about [facility] snf. Will plan for d/c tomorrow. No other acute concerns or complaints. Review of Systems Review of Systems: All systems reviewed & are unremarkable except as noted in HPI & below Physical Exam Constitutional: + cachectic Respiratory: normal respiratory effort, lungs clear to auscultation Cardiovascular: RRR, no murmur, no edema Chest (Breasts): Additional Comments: R breast wet desqamated 5x1 inch H=hole with purulent drainage underneath R breast Tender to touch Bandaged Gastrointestinal (Abdomen): normal bowel sounds, soft, nontender, no hepatosplenomegaly Psychiatric: A+Ox3, euthymic affect Results & Data Vital Signs (Past 12 Hours) Vital Signs Temp Pulse Resp BP Pulse Ox 02/26/19 07:47 36.6 C 66 16 128/66 95 Laboratory Results Laboratory Results - last 24 hr 02/26/19 02/26/19 05:18 05:18 WBC 3.52 L RBC 2.58 L Hgb 8.1 L Hct 24.2 L MCV 93.8 MCH 31.4 MCHC 33.5 RDW Std Deviation 66.7 H RDW Coeff of Siobhan 19.4 H Plt Count 139 MPV 9.6 Immature Gran % (Auto) 1.4 Neut % (Auto) 66.8 Lymph % (Auto) 15.6 [place] % (Auto) 14.8 Eos % (Auto) 1.1 Baso % (Auto) 0.3 Immature Gran # (Auto) 0.05 H Neut # (Auto) 2.35 Lymph # (Auto) 0.55 L [place] # (Auto) 0.52 Eos # (Auto) 0.04 Baso # (Auto) 0.01 Sodium 139 Potassium 3.8 Chloride 107 Carbon Dioxide 26 Anion Gap 6.0 BUN 12 Creatinine 0.57 L Est Cr Clr Drug Dosing 79.8 Est GFR ( Amer) 98.0 Est GFR (Non-Af Amer) 84.5 BUN/Creatinine Ratio 21.5 H Glucose 89 Calcium 8.0 L Total Bilirubin 0.3 AST 14 L ALT 11 L Alkaline Phosphatase 75 Total Protein 4.5 L Albumin 1.4 L Globulin 3.1 Albumin/Globulin Ratio 0.5 L Medications Administered Current Inpatient Medications Acetaminophen (Tylenol) 650 mg PO Q4H PRN PRN Reason: Pain or Fever Stop: 03/24/19 15:32 Al Hydrox/Mg Hydrox/Simethicone (Maalox) 15 ml PO Q4H PRN PRN Reason: Dyspepsia Stop: 03/24/19 15:32 Atorvastatin Calcium (Lipitor) 10 mg PO QPM [facility] Stop: 03/24/19 20:59 Last Admin: 02/25/19 21:17 Dose: 10 mg Documented by: Fentanyl (Duragesic) 12 mcg TD Q3D [facility] Stop: 03/11/19 14:59 Last Admin: 02/25/19 16:09 Dose: 12 mcg Documented by: Heparin Sodium (Porcine) (Heparin Sod 100 Unit/Ml Flush) 5 ml FLUSH PRN PRN PRN Reason: Flush Stop: 03/25/19 00:29 Hydrochlorothiazide (Hctz) 12.5 mg PO QAM [facility] Stop: 03/25/19 08:59 Last Admin: 02/26/19 09:35 Dose: 12.5 mg Documented by: Potassium Chloride/Sodium Chloride (Normal Saline W/20 Meq Kcl) 20 meq in 1,000 mls @ 80 mls/hr IV .[id number] [facility] Stop: 03/24/19 15:59 Last Admin: 02/26/19 06:21 Dose: 80 mls/hr Documented by: Ceftriaxone Sodium 2,000 mg/ (Dextrose) 70 mls @ 140 mls/hr IV Q24H [facility] Stop: 03/08/19 08:59 Last Infusion: 02/26/19 10:15 Dose: Infused Documented by: Metronidazole (Flagyl) 500 mg in 100 mls @ 100 mls/hr IV Q8H [facility] Stop: 03/08/19 15:59 Last Admin: 02/26/19 15:41 Dose: 100 mls/hr Documented by: Levothyroxine Sodium (Synthroid) 88 mcg PO DAILYBB [facility] Stop: 03/25/19 06:29 Last Admin: 02/26/19 06:14 Dose: 88 mcg Documented by: Magnesium Hydroxide (Milk Of Magnesia) 30 ml PO Q12H PRN PRN Reason: Constipation Stop: 03/24/19 15:32 Metronidazole (Metrogel) 1 appln TOP BID [facility] Stop: 03/04/19 20:59 Last Admin: 02/26/19 11:45 Dose: 1 appln Documented by: Miconazole Nitrate (Desenex) 1 appln EXT PRN PRN PRN Reason: Affected Skin Folds Stop: 03/26/19 20:08 Miscellaneous (Fentanyl Patch Check Placement) 1 ea N/A QS [facility] Stop: 03/27/19 15:59 Last Admin: 02/26/19 15:41 Dose: 1 ea Documented by: Miscellaneous (Fentanyl Patch Remove & Waste) 1 ea N/A Q3D [facility] Stop: 03/30/19 14:54 Morphine Sulfate (Morphine Sulfate) 2 mg IV Q3H PRN PRN Reason: Severe Pain Stop: 03/08/19 15:32 Last Admin: 02/26/19 12:21 Dose: 2 mg Documented by: Multivitamins/Minerals (Caltrate Plus) 1 tab PO DAILY [facility] Stop: 03/25/19 08:59 Last Admin: 02/26/19 09:35 Dose: 1 tab Documented by: Ondansetron HCl (Zofran) 4 mg IV Q6H PRN PRN Reason: Nausea Stop: 03/24/19 15:32 Last Admin: 02/24/19 15:42 Dose: 4 mg Documented by: Ondansetron HCl (Zofran Tab) 8 mg PO TID PRN PRN Reason: Nausea Stop: 03/24/19 15:32 Last Admin: 02/23/19 12:42 Dose: 8 mg Documented by: Polyethylene Glycol (Miralax Powder Packet) 17 gm PO DAILY PRN PRN Reason: Constipation Stop: 03/24/19 15:32 Last Admin: 02/26/19 09:36 Dose: 17 gm Documented by: Potassium Chloride (Klor-Con M10) 20 meq PO QDL [facility] Stop: 03/25/19 11:29 Last Admin: 02/26/19 12:16 Dose: 20 meq Documented by: Prednisone (Prednisone) 5 mg PO QDL [facility] Stop: 03/25/19 11:29 Last Admin: 02/26/19 12:16 Dose: 5 mg Documented by: Rivaroxaban (Xarelto) 20 mg PO QDD [facility] Stop: 03/25/19 16:29 Last Admin: 02/25/19 18:51 Dose: 20 mg Documented by: Zolpidem Tartrate (Ambien) 5 mg PO HS PRN PRN Reason: Sleep Stop: 03/24/19 15:32 PG Care Time/CCT Total # of Minutes Spent Total Time Spent with Patient: Total time spent is greater than 50% in coordination of care (as documented) at patient's floor/unit and/or counseling patient: Resident Activity Tracking Resident Involvement: Resident Care Provided Care Provided: Adult Hospital Medicine
[2019-02-26] MEDS: metroNIDAZOLE 500 MG/100 ML BAG IV SCH ×2 (15:41→23:43)
--- NOTE | 2019-02-26 16:11 | Palliative Care Progress Note ---
Date of Service February 26, 2019 Assessment & Plan (1) Goals of care, counseling/discussion: -Fentanyl patch was started yesterday. Patient has not used any PRN pain medication and seems to be tolerating well. -Patient's son apparently toured the [facility]. He was not at bedside during my visit this morning. Plan is for SNF, skilled and possibly transition to hospice. -POLST form completed 02/24. -Care managed by hospitalist team. -Please contact palliative care with any further needs. 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 Patient has not used any PRN pain medication and seems to be tolerating well. Review of Systems Review of Systems: + dyspnea on exertion no chest pain and no edema no abdominal pain and no nausea Physical Exam Constitutional: + ill appearing and + overweight ENMT: Ears: + hearing impairment (mildly [place]) Neck: normal visual inspection Respiratory: no respiratory distress and no labored breathing Cardiovascular: Rate/Rhythm: regular rate and regular rhythm Gastrointestinal (Abdomen): Inspection/Auscultation: abdomen normal to inspection and normal bowel sounds Percussion/Palpation: abdomen soft Neurologic: moves all extremities and awake Psychiatric: A+Ox3, euthymic affect Results & Data Vital Signs (Past 12 Hours) Vital Signs Temp Pulse Resp BP Pulse Ox 02/26/19 07:47 36.6 C 66 16 128/66 95 Supervising Physician Co-Signing Physician Notes Patient seen and examined, no family at bedside. Patient was receiving in bed PT Patient tolerating lower extremity PT without pain or discomfort PE: No acute distress HEENT: EOMI, hearing within normal limits Respirations: Unlabored CV: Regular rate, no increased edema Abdomen: Obese Neuro: Alert and oriented Agree with above note, assessment and plan as per TERRI Olson-please reconsult if we can be of any assistance with medical decision making. Plan is for patient to [facility] to [facility] facility for [facility]hab PG Care Time/CCT Total # of Minutes Spent Total Time Spent with Patient: Total time spent is greater than 50% in coordination of care (as documented) at patient's floor/unit and/or counseling patient: Time Spent Midlevel 25 minutes with >50% of the time spent at bedside with patient and IDT discussing condition and GOC. 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
[2019-02-26] MEDS: RIVAROXABAN 20 MG TAB PO SCH (18:05)
[2019-02-26] MEDS: ATORVASTATIN 10 MG TAB PO SCH (21:21)
[2019-02-26 23:06] VITALS: TEMP 97.9
[2019-02-27] MEDS: LEVOTHYROXINE SODIUM 88 MCG TABLET PO SCH (06:22)
[2019-02-27 07:22] VITALS: BP 169/74; O2SAT 99
[2019-02-27] MEDS: CALCIUM 600MG + VIT D 400 IU TAB PO SCH (08:01)
[2019-02-27] MEDS: metroNIDAZOLE 500 MG/100 ML BAG IV SCH (08:01)
[2019-02-27] MEDS: CHECK FENTANYL PATCH PLACEMENT SCH (08:02)
[2019-02-27 08:09] LABS: Basophils # (auto) 0.01 K/uL (0-0.2); Basophils % (auto) 0.3 %; Eosinophils # (auto) 0.03 K/uL (0-0.5); Eosinophils % (auto) 0.9 %; Hematocrit (blood only) 26.8 % (37-47); Hemoglobin 8.9 g/dL (12.0-16.0); Immature Granulocytes # (auto) 0.07 K/uL (0.00-0.02); Immature Granulocytes % (auto) 2.1 %; Lymphocytes # (auto) 0.53 K/uL (1.2-3.4); Lymphocytes % (auto) 15.8 %; Mean Corpuscular Hgb Conc 33.2 g/dL (32-36); Mean Corpuscular Volume 94.7 fL (80-100); Mean Platelet Volume 9.6 fL (7.4-10.4); Monocytes # (auto) 0.47 K/uL (0.11-0.59); Neutrophils # (auto) 2.25 K/uL (1.4-6.5); Neutrophils % (auto) 66.9 %; Platelet Count 145 K/uL (130-400); RDW Coefficient of Variation 19.4 % (11.5-14.5); RDW Standard Deviation 66.8 fL (36.4-46.3); Red Blood Count 2.83 M/uL (4.2-5.4); White Blood Count 3.36 K/uL (4.8-10.8)
[2019-02-27 08:41] LABS: Albumin Level 1.4 gm/dl (3.4-5.0); BUN Creatinine Ratio 19.5 (10-20); Calcium 8.3 mg/dl (8.5-10.1); Creatinine Clr Calc Pharmacy 82.7 ml/min; Est GFR (African American) 99.1; Est GFR (Non-African American) 85.5
[2019-02-27 08:44] LABS: Albumin Globulin Ratio 0.4 (0.9-2); Bilirubin,Total 0.3 mg/dl (0.2-1); Globulin 3.4 gm/dl (2.5-4.0); Total Protein 4.8 gm/dl (6.4-8.2)
[2019-02-27] MEDS: hydroCHLOROthiazide 25 MG TAB PO SCH (09:07)
[2019-02-27] MEDS: NSS + 20MEQ KCL 20 MEQ/1,000 ML BAG IV SCH (09:08)
[2019-02-27] MEDS: metroNIDAZOLE 0.75% TOPICAL GEL 45 GM TUBE TOP SCH (09:09)
[2019-02-27] MEDS: cefTRIAXone SODIUM 2,000 MG in DEXTROSE 5% 50 ML IV SCH (09:09)
[2019-02-27] MEDS ORDERED: fentaNYL 25 MCG/HR TDSY TD SCH (09:30)
[2019-02-27] MEDS: MoRPHine SULFATE 2 MG/ML CARP IV PRN (09:59)
[2019-02-27] MEDS: HEPARIN 100 UNIT/ML 5ML FLUSH FLUSH PRN ×2 (11:16→14:10)
[2019-02-27] MEDS ORDERED: Nursing to Pharmacy Communication ONE (12:01)
[2019-02-27] MEDS: POTASSIUM CHLORIDE 10 MEQ TABCR PO SCH (12:33)
[2019-02-27] MEDS: predniSONE 5 MG TAB PO SCH (12:33)
--- NOTE | 2019-02-27 13:11 | Discharge Summary ---
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 Patient completed radiation therapy for the right metastatic breast cancer and she is currently on Abraxane on under supervision of Dr. Javier Barnett. Patient had a mixed response with chemotherapy with a good response at her site of distant metastases metastases however her primary breast mass has become very large and symptomatic and for that patient received radiation palliative external beam radiation therapy which course she completed.Patient patient supposed to have continuation of chemotherapy tomorrow. Patient said since radiation therapy has been completed her superficial chest wound localized around the right black breast is draining and not healing properly and it is very painful. Patient lives by herself at home and her only son travels for work and could not be 24/7 presents to help patient with all of her needs. Patient said that she needs not only wound care which she had so far daily but she would also need daily ADLs most likely 24/7. Patient denies fever chills headache, cardiac chest pain, sh ortness of breath abdominal pain frequency urgency hemoptysis and hematemesis. Labs were reviewed which shows white blood cell of 3.8 red blood cell 3.08 hemoglobin 9.7 hematocrit 28.5 platelets 178, sodium 136 potassium 3.4 BUN 22 creatinine 0.81 GFR 76.8 BUN/creatinine ratio 27.5, TSH 1.320 lactate 1.9 BNP 611 AST 23 ALT 14 alkaline phosphatase 90. EKG shows normal sinus rhythm, left bundle branch block, T wave no longer evident in inferior leads. RI interval has decreased. No ST segment elevation or depression, QT 456. CXR significant for nChronic reticulonodular opacities, which could suggest chronic indolent infection or chronic aspiration among other etiologies. No new focal infiltrate to suggest pneumonia. Cardiomegaly. Decision was made to accept patient to PCU on telemetry. Principal Diagnosis breast ca Discharge Exam Constitutional + cachectic Eyes PERRL, conjunctivae normal, anicteric sclerae Respiratory normal respiratory effort, lungs clear to auscultation Cardiovascular RRR, no murmur, no edema Chest (Breasts) Additional Comments: R breast wet desquamated Sizeable hole with purulent drainage underneath R breast Tender to touch Bandaged w/o leakage Gastrointestinal (Abdomen) normal bowel sounds, soft, nontender, no hepatosplenomegaly Psychiatric A+Ox3, euthymic affect Discharge Data Allergies Allergy/AdvReac Type Severity Reaction Status Date / Time latex Allergy Mild RASH AT Verified 02/22/19 12:07 SITE Consultations 02/22/19 12:18 ED Decision to Admit Stat 02/22/19 12:37 Consult Wound Care Provider Routine 02/22/19 15:33 Consult Case Management - Discharge Planning Routine Consult Hematology Routine 02/22/19 16:12 Consult Pain Management Routine 02/23/19 17:00 Consult Palliative Care Routine Hospital Course (1) Generalized weakness: 83 year old woman with metastatic breast cancer status post numerous radiation treatments and chemotherapy, was on abraxane salvage therapy who was here for nonhealing radiation induced wound and failure to thrive. The following is the medical management during stay here: Breast Cancer -Oncology was consulted and determined that pt appears to be terminal and goals of care discussion was had with patient and family. Decided not to pursue any further chemo. Will be going to snf and possibly transition to hospice. -Pal care consult: DNR, limited additional interventions, abx with comfort as the goal, trial period of IVF but NO feeding tube. POLST completed. Chest Wound Infected appearing and non healing Wound care following here, instructions given to care team at [facility] to continue bandage care there. Keep wound clean and dressed IV Ceftriaxone for infected wound (will transition to PO Cefdinir on d/c). Initially was on Cipro/Vanc and later cefepime. Added Flagyl, which will also be cont on d/c. Cefdinir and Flagyl will be cont for one week. Was On IV morphine 2mg PRN for pain, will transition to PO tramadol 25 mg prn q4hr/acetaminophen 500 mg BID PETER moving forward. Pt declines oxycodone 2/2 poor rxn in past. You may of course adjust pain meds as necessary moving forward. Pt also sent with Fentanyl Patch 25 mcg q3days. Buttock Wound Air Mattress to distribute pressure points Frequent repositioning Dehydration/Poor PO intake Normal saline with 20 meq KCl at 80 ml an hour given here Try to give pt boost or Ensure. Encourage patient to eat more protein to help with wound healing Total Time Total Time Spent Total Time Spent (In Minutes): 35 Discharge Plan Discharge Items Patient Disposition: Transfer Assisted Fac Reason For Visit: infected wound,generalized weakness Discharge Diagnosis: breast ca, radiation cruz Discharge Goals: Decrease discomfort and Improve function Activity: Per 'Additional Instructions' section Non-emergency contact: Primary Care Provider Call non-emergency contact if: you have any medication questions, your symptoms worsen, your pain is not controlled and your temperature is above 101.5 Follow-up/Referrals: Eliezer Stokes MD [Primary Care Provider] - Diet: Regular Addtl Provider Instructions: 83 year old woman with metastatic breast cancer status post numerous radiation treatments and chemotherapy, was on abraxane salvage therapy who was here for nonhealing radiation induced wound and failure to thrive. The following is the medical management during stay here: Breast Cancer -Oncology was consulted and determined that pt appears to be terminal and goals of care discussion was had with patient and family. Decided not to pursue any further chemo. Will be going to snf and possibly transition to hospice. -Pal care consult: DNR, limited additional interventions, abx with comfort as the goal, trial period of IVF but NO feeding tube. Chest Wound Infected appearing and non healing Wound care following here, instructions given to care team at [facility] to continue bandage care there. Keep wound clean and dressed IV Ceftriaxone for infected wound (will transition to PO Cefdinir on d/c). Initially was on Cipro/Vanc and later cefepime. Added Flagyl, which will also be cont on d/c. Cefdinir and Flagyl will be cont for one week. Was On IV morphine 2mg PRN for pain, will transition to PO tramadol 25 mg prn q4hr/acetaminophen 500 mg BID PETER moving forward. Pt declines oxycodone 2/2 poor rxn in past. You may of course adjust pain meds as necessary moving forward. Pt also sent with Fentanyl Patch 25 mcg q3days. Buttock Wound Air Mattress to distribute pressure points Frequent repositioning Dehydration/Poor PO intake Normal saline with 20 meq KCl at 80 ml an hour given here Try to give pt boost or Ensure. Encourage patient to eat more protein to help with wound healing Prescriptions: New cefdinir 300 mg capsule 300 mg PO BID 10 Days Qty: 20 RF: 0 metronidazole 500 mg tablet 500 mg PO TID 10 Days Qty: 30 RF: 0 tramadol [Ultram] 50 mg tablet 25 mg PO DAILY PRN (Reason: pain) Qty: 30 RF: 0 fentanyl 25 mcg/hr patch 72 hour 1 patch TD Q72H Qty: 5 RF: 0 Continued ondansetron HCl [Zofran] 8 mg tablet 8 mg PO TID PRN (Reason: Nausea) RF: 0 atorvastatin 10 mg Tablet 10 mg PO QPM RF: 0 prednisone 5 mg Tablet 5 mg PO QDL RF: 0 potassium chloride 10 mEq Tablet Extended Release 20 meq PO QDL RF: 0 hydrochlorothiazide 12.5 mg Capsule 12.5 mg PO QAM RF: 0 levothyroxine 88 mcg Capsule 88 mcg PO QAM RF: 0 Calcium 600 + D(3) 600 mg calcium- 200 unit Capsule 1 cap PO DAILY RF: 0 acetaminophen [Tylenol Extra Strength] 500 mg Tablet 1,000 mg PO UD PRN (Reason: Pain) RF: 0 metronidazole 0.75 % gel 1 applic topical UD RF: 0 Xarelto 20 mg tablet 20 mg PO QAM RF: 0 Discontinued doxycycline hyclate 100 mg capsule 100 mg PO BID RF: 0 Stand-Alone Forms: [facility] Discharge Orders: Discharge Order (Routine); Ordered 02/27/19 Ordered By: Rakan Bradley Skilled Items Patient informed of condition?: Yes DNR: Yes Discharge Level of Care: Skilled Communicable Disease: No Discharge Prognosis: Stable Admission Data Admit Date/Time: 02/22/19 13:32 Attending Provider: Teo Delarosa Admit Provider: Noman Deshpande Primary Care Provider: Eliezer Stokes V. Other Providers: Noman Deshpande ; Loretta Mahan ; Javier Barnett ; Sunni Kemp ; Rosie Solano Service: Medical Other Interventions: Discharge Summary Assessment (RN) Last Done: 02/27/19 15:00 DC Date/Time DO NOT enter until pt leaves facility: 02/27/19 15:51 Supervising Physician Co-Signing Physician Notes Patient seen and examined with PGY-2 Dr. Bradley. Agree with history, exam findings, assessment and plan of care as outlined. in brief, Ms. Azul is an 83 year old female with hx of breast cancer and hypertension who is admitted for burn and cellulitis 2/2 radiation burn to the right breast. Wound culture growing E. Coli, Proteus, Morganella, Prevotella. On IV ceftriaxone and flagyl but switching to po cefdinir and flagyl on discharge. Pain control with fentanyl patch with tramadol. Should receive PO tramadol dose about 30-45 minute prior to dressing change. She also has systolic hypertension. Careful titration of hydrochlorothiazide 12.5mg so not to bottom out her diastolic pressures. Dispo: discharge to [facility]. Appreciate palliative care recommendations and assistance with goals of care discussion. Resident Activity Tracking Resident Involvement: Resident Care Provided Care Provided: Adult Hospital Medicine
[2019-02-27] MEDS ORDERED: metroNIDAZOLE 500 MG TAB PO SCH (14:00)
[2019-02-27 15:06] VITALS: PULSE 70
[2019-02-27] MEDS ORDERED: CHECK FENTANYL PATCH PLACEMENT SCH (16:00)
== END 2019-02-27 15:51 | DRG 935 ==
LOC: ED 09:37 → 2E 13:32 → SUATTDRO 13:32 → 2E 14:57 → 4W 02-24 12:51

== ENCOUNTER 2019-02-28 12:05 | Inpatient (IN) ==
[2019-02-28] MEDS ORDERED: MoRPHine SULFATE 4 MG/ML 1 ML CARP\\VIAL IV STA (12:12)
[2019-02-28] MEDS ORDERED: ONDANSETRON INJ 2 MG/ML 2 ML VIAL IV STA (12:12)
[2019-02-28] MEDS ORDERED: SODIUM CHLORIDE 0.9% 500 ML IV SCH (12:15)
--- NOTE | 2019-02-28 12:27 | Emergency Department Note ---
Entered by Vesta Gerardo acting as a scribe for Manjinder Salinas DO History of Present Illness General Chief complaint: Vomiting Stated complaint: nausea/vomit Time Seen by Provider: 02/28/19 12:06 Source: patient and EMS History of Present Illness Onset (ago): minute(s) (prior to arrival) Location: abdomen Pain Consistency: + other (episode) Quality: + other (nausea and vomiting ) Associated symptoms: + weakness (+left sided weakness (per EMS) ) and + other (+abdominal pain) Treatments prior to arrival: other (1 Zofran) The patient is an 83 year old female who presents to the Emergency Room with complaints of an episode of nausea and vomiting prior to arrival. The patient states she is feeling sick to her stomach. The patient also notes of abdominal pain. Per EMS, the patient arrived from [facility]. EMS notes that [facility] noticed left-sided weakness to the patient. EMS notes the patient has cancer and a DNR, and EMS also states that the patient was given 1 Zofran prior to arrival. Home Medications Home Medications Medication Instructions Recorded Confirmed Type Calcium 600 + D(3) 1 cap PO DAILY 07/16/18 02/28/19 History atorvastatin 10 mg PO QPM 07/16/18 02/28/19 History hydrochlorothiazide 12.5 mg PO QAM 07/16/18 02/28/19 History levothyroxine 88 mcg PO QAM 07/16/18 02/28/19 History potassium chloride 20 meq PO QDL 07/16/18 02/28/19 History prednisone 5 mg PO QDL 07/16/18 02/28/19 History ondansetron HCl 8 mg tablet 8 mg PO TID PRN 12/01/18 02/28/19 History Xarelto 20 mg PO QAM 02/22/19 02/28/19 History acetaminophen [Tylenol Extra 1,000 mg PO UD PRN 02/22/19 02/28/19 History Strength] metronidazole 1 applic TOPICAL UD 02/22/19 02/28/19 History cefdinir 300 mg PO BID 10 Days #20 cap 02/27/19 02/28/19 Rx fentanyl 1 patch TD Q72H #5 ea 02/27/19 02/28/19 Rx metronidazole 500 mg PO TID 10 Days #30 tab 02/27/19 02/28/19 Rx tramadol [Ultram] 25 mg PO DAILY PRN #30 tab 02/27/19 02/28/19 Rx bisacodyl [Dulcolax (bisacodyl)] 10 mg DE DAILY PRN 02/28/19 02/28/19 History doxycycline monohydrate 100 mg PO UD 02/28/19 02/28/19 History Allergies Allergy/AdvReac Type Severity Reaction Status Date / Time latex Allergy Mild RASH AT Verified 02/28/19 13:13 SITE Past Med/Surg History Medical History History of chemotherapy (Acute) Abraxane x 5 cycles q 3 weeks Anemia HX OF 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 Father , Passed age 87 of stroke No problems noted. Sister , Passed age 45 of ovarian CA No problems noted. Sister No problems noted. Sister No problems noted. Brother , Passed age 7 in an MVA No problems noted. Brother No problems noted. Brother No problems noted. Son , Passed age 45 of stroke No problems noted. Son No problems noted. Social History Preferred Language: Kitt[place] Communication Ability: Impaired Visual Impairment: Limited Hearing Ability: Hard of Hearing Poultry Killer Required: No Beliefs That Will Affect Care: Moravian Moravian Beliefs: WORSHIP marital status: Current Living Situation: Alone current occupational status: retired current occupation: Retired Housewife Feels Safe at Home: Yes Smoking Status: Never smoker Second Hand Exposure: No ; Hx Alcohol Use: No Hx Substance Use: No caffeine: Yes (Occasional) during the past year weight has: remained stable Dental Care, Regularly: No Review of Systems See HPI for pertinent positives & negatives. and A total of 10 systems reviewed and were otherwise negative Physical Exam Vital Signs Vital Signs - 24 hr 02/28/19 12:44 02/28/19 13:37 02/28/19 15:04 Temperature 36.8 C Temperature Source Oral Sepsis Recent Fever Within 48 Hours No Sepsis New/Unexplained Change in Mental Status No Sepsis Action Taken by Nursing No Action Required Pulse Rate 71 Pulse Rate [Apical] 62 65 Respiratory Rate 16 16 Blood Pressure 147/87 H Blood Pressure [Left Arm] 185/89 H 157/67 H Blood Pressure Mean 107 Blood Pressure Mean [Left Arm] 121 97 Pulse Oximetry 96 93 96 Oxygen Delivery Method Room Air Room Air Room Air CONSTITUTIONAL/VITAL SIGNS: Reviewed / noted above. GENERAL: Non-toxic in appearance. INTEGUMENTARY: Warm, dry, and [place]. HEAD: Normocephalic. EYES: without scleral icterus or trauma. ENT/OROPHARYNX: clear and moist. LYMPHADENOPATHY/NECK: Is supple without lymphadenopathy or meningismus. RESPIRATORY: Lungs clear and equal. CARDIOVASCULAR: Regular rate and rhythm. GI/ABDOMEN: Soft. Tenderness to palpation to left lower quadrant. No organomeg eloisa or pulsatile mass. No rebound or guarding. Normal bowel sounds. EXTREMITIES: Warm and well perfused. BACK: No CVA tenderness. NEUROLOGICAL: Intact without focal deficits. PSYCHIATRIC: normal affect. MUSCULOSKELETAL: Normally developed with good muscle tone. Course 1208: Past medical records reviewed. The patient was evaluated in room B3B. A complete history and physical exam was performed. 1514: I reevaluated the patient. I discussed the results of the patient's case with the patient's family. The family says the patient is not acting herself lately, and they state they want more tests to be done on the patient. I ordered a CT Head scan for the patient. 1555: I reevaluated the patient. The patient is still vomiting. 1610: I discussed the case with Dr. Ramesh-[facility]. Dr. Ramesh will further evaluate the patient. Consultations Consultation #1: I [facility] the [facility]. Dr. Ramesh will further evaluate the patient. Time: 16:10 Administered Medications Discontinued Medications Sodium Chloride (Nss) 500 mls @ 999 mls/hr IV .Q31M PETER Stop: 02/28/19 12:45 Last Infusion: 02/28/19 14:03 Dose: 0 mls/hr Documented by: [id number] Admin: 02/28/19 13:23 Dose: 999 mls/hr Documented by: [id number] Morphine Sulfate (Morphine Sulfate) 4 mg IV NOW STA Stop: 02/28/19 12:13 Last Admin: 02/28/19 12:41 Dose: 4 mg Documented by: [id number] Ondansetron HCl (Zofran) 4 mg IV NOW STA Stop: 02/28/19 12:13 Last Admin: 02/28/19 12:41 Dose: 4 mg Documented by: [id number] Prochlorperazine (Compazine) Confirm Administered Dose 10 mg .ROUTE .STK-MED ONE Stop: 02/28/19 13:50 Last Admin: 02/28/19 13:51 Dose: 10 mg Documented by: [id number] Medical Decision Making Differential Diagnosis Differential diagnosis: Etiologies such as appendicitis, diverticulitis, PUD, biliary pathology, UTI, pancreatitis, obstruction, mesenteric ischemia, aortic pathology, infections, inflammatory bowel disease, renal colic, as well as others were entertained. Medical Records Attestation: I reviewed the patient's medical records. Home Medications Current Medication List: was personally reviewed by me Laboratory Data Attestation: I reviewed the patient's lab results. Result diagrams: 02/28/19 12:35 02/28/19 12:35 Lab Results 02/28/19 02/28/19 02/28/19 Range/Units 12:35 12:35 12:35 WBC 12.51 H (4.8-10.8) K/uL RBC 3.41 L (4.2-5.4) M/uL Hgb 10.8 L (12.0-16.0) g/dL Hct 31.6 L (37-47) % MCV 92.7 (80-100) fL MCH 31.7 (25-34) pg MCHC 34.2 (32-36) g/dL RDW Std Deviation 65.2 H (36.4-46.3) fL RDW Coeff of Siobhan 19.4 H (11.5-14.5) % Plt Count 236 D (130-400) K/uL MPV 9.5 (7.4-10.4) fL Immature Gran % (Auto) 1.4 % Neut % (Auto) 85.7 % Lymph % (Auto) 6.2 % Cannon % (Auto) 6.6 % Eos % (Auto) 0.0 % Baso % (Auto) 0.1 % Immature Gran # (Auto) 0.17 H (0.00-0.02) K/uL Neut # (Auto) 10.73 H (1.4-6.5) K/uL Lymph # (Auto) 0.78 L (1.2-3.4) K/uL Cannon # (Auto) 0.82 H (0.11-0.59) K/uL Eos # (Auto) 0.00 (0-0.5) K/uL Baso # (Auto) 0.01 (0-0.2) K/uL RBC Morphology Unremarkable PT 15.6 H (9.0-12.0) Seconds INR 1.6 H (0.9-1.1) Sodium 136 (136-145) mmol/L Potassium 2.8 L D (3.5-5.1) mmol/L Chloride 100 (98-107) mmol/L Carbon Dioxide 27 (21-32) mmol/L Anion Gap 10.0 (3-11) BUN 10 (7-18) mg/dl Creatinine 0.66 (0.6-1.2) mg/dl Est Cr Clr Drug Dosing 69.8 ml/min Est GFR ( Amer) 93.4 Est GFR (Non-Af Amer) 80.6 BUN/Creatinine Ratio 15.3 (10-20) Glucose 155 H (70-99) mg/dl Calcium 9.2 (8.5-10.1) mg/dl Total Bilirubin 0.5 (0.2-1) mg/dl AST 29 (15-37) U/L ALT 16 (12-78) U/L Alkaline Phosphatase 88 (45-117) U/L Total Protein 6.2 L D (6.4-8.2) gm/dl Albumin 1.9 L (3.4-5.0) gm/dl Globulin 4.3 H (2.5-4.0) gm/dl Albumin/Globulin Ratio 0.4 L (0.9-2) Lipase 47 L (73-393) U/L Urine Color Urine Appearance (Clear) Urine pH (4.5-7.5) Ur Specific [place] (1.000-1.030) Urine Protein (Negative) Urine Glucose (UA) (Negative) Urine Ketones (Negative) Urine Blood (Negative) Urine Nitrite (Negative) Urine Bilirubin (Negative) Urine Urobilinogen (Negative) Ur Leukocyte Esterase (Negative) 02/28/19 Range/Units 13:53 WBC (4.8-10.8) K/uL RBC (4.2-5.4) M/uL Hgb (12.0-16.0) g/dL Hct (37-47) % MCV (80-100) fL MCH (25-34) pg MCHC (32-36) g/dL RDW Std Deviation (36.4-46.3) fL RDW Coeff of Siobhan (11.5-14.5) % Plt Count (130-400) K/uL MPV (7.4-10.4) fL Immature Gran % (Auto) % Neut % (Auto) % Lymph % (Auto) % Cannon % (Auto) % Eos % (Auto) % Baso % (Auto) % Immature Gran # (Auto) (0.00-0.02) K/uL Neut # (Auto) (1.4-6.5) K/uL Lymph # (Auto) (1.2-3.4) K/uL Cannon # (Auto) (0.11-0.59) K/uL Eos # (Auto) (0-0.5) K/uL Baso # (Auto) (0-0.2) K/uL RBC Morphology PT (9.0-12.0) Seconds INR (0.9-1.1) Sodium (136-145) mmol/L Potassium (3.5-5.1) mmol/L Chloride (98-107) mmol/L Carbon Dioxide (21-32) mmol/L Anion Gap (3-11) BUN (7-18) mg/dl Creatinine (0.6-1.2) mg/dl Est Cr Clr Drug Dosing ml/min Est GFR ( Amer) Est GFR (Non-Af Amer) BUN/Creatinine Ratio (10-20) Glucose (70-99) mg/dl Calcium (8.5-10.1) mg/dl Total Bilirubin (0.2-1) mg/dl AST (15-37) U/L ALT (12-78) U/L Alkaline Phosphatase (45-117) U/L Total Protein (6.4-8.2) gm/dl Albumin (3.4-5.0) gm/dl Globulin (2.5-4.0) gm/dl Albumin/Globulin Ratio (0.9-2) Lipase (73-393) U/L Urine Color Yellow Urine Appearance Clear (Clear) Urine pH 7.5 (4.5-7.5) Ur Specific [place] 1.013 (1.000-1.030) Urine Protein Negative (Negative) Urine Glucose (UA) Negative (Negative) Urine Ketones Trace H (Negative) Urine Blood Negative (Negative) Urine Nitrite Negative (Negative) Urine Bilirubin Negative (Negative) Urine Urobilinogen Negative (Negative) Ur Leukocyte Esterase Negative (Negative) Imaging Data Radiologist's Impression: Radiology results as stated below per my review and the radiologist's interpretation: CT SCAN OF THE ABDOMEN AND PELVIS WITHOUT CONTRAST CLINICAL HISTORY: Left lower quadrant tenderness, vomiting, hx met breast ca COMPARISON STUDY: 02/09/2019 TECHNIQUE: CT scan of the abdomen and pelvis was performed from the lung bases to the proximal femurs. Images are reviewed in the axial, sagittal, and coronal planes. IV contrast was not administered for this examination. A dose lowering technique was utilized adhering to the principles of ALARA. CT DOSE: 1147.33 mGy.cm FINDINGS: Lower chest: There are coronary artery calcifications. There are small bilateral pleural effusions. There are bibasilar airspace opacities, statistically atelectatic. There is a 7 cm right breast mass. Liver: The unenhanced liver is normal in size, contour, and attenuation. There is no intrahepatic biliary ductal dilatation. Gallbladder: Surgically absent Spleen: Normal in size and attenuation. Pancreas: Unremarkable. Adrenal glands: Unremarkable. Kidneys: There is a 44 mm right renal cyst. There is no hydronephrosis. No o bstructing renal ureteral or bladder calculi are visualized. Bowel: There are no transition zones to indicate bowel obstruction. There is colonic diverticulosis. There is mild sigmoid wall thickening, similar to the preceding study. This may be secondary to peridiverticular muscular hypertrophy as there is no infiltration of the pericolonic fat. There is a moderate amount a partially liquefied stool within the rectal vault. Peritoneum: There is no intraperitoneal free air or abdominal ascites. Vasculature: The abdominal aorta is normal in course and caliber. Adenopathy: None. Pelvic viscera: The uterus appears surgically absent Skeletal structures: Bones are osteopenic. Arthritic changes are present within the hips and spine. There is evidence for spinal stenosis, most pronounced at the L4-5 level. IMPRESSION: 1. Right breast subdermal thickening and ulceration. A 7 cm right breast mass is suspected 2. No evidence of bowel obstruction. No evidence of free air 3. Colonic diverticulosis. Sigmoid wall thickening, similar to the prior study, possibly secondary to peridiverticular muscular hypertrophy. No convincing evidence of acute diverticulitis on this noncontrast study 4. No renal, ureteral, or bladder calculi identified Electronically signed by: Marcelo Kidd M.D. 02/28/2019 1:36 PM XR chest 1V portable CLINICAL HISTORY: abd pain COMPARISON STUDY: 02/22/2019 FINDINGS: The heart is mildly enlarged. There is a left-sided A-Port catheter present. There are small bilateral pleural effusions with associated basilar opacity statistically atelectatic. There is mild pulmonary vascular congestion. There is evidence for left shoulder calcific tendinitis.[ IMPRESSION: 1. Cardiomegaly and mild pulmonary vascular congestion 2. Small bilateral pleural effusions with associated basilar opacities, likely atelectatic although an infectious/inflammatory processes could appear similar 3. No evidence of free intraperitoneal air Electronically signed by: Marcelo Kidd M.D. 02/28/2019 1:[address] head/brain wo con CLINICAL HISTORY: vomiting CONFUSION COMPARISON STUDY: 07/04/2018 TECHNIQUE: Axial CT of the brain is performed from the vertex to the skull base. IV contrast was not administered for this examination. A dose lowering technique was utilized adhering to the principles of ALARA. CT DOSE: 537.48 mGy.cm FINDINGS: No intra or extra-axial mass lesions are visualized. There is no CT evidence of acute cortical infarction. There is no evidence of midline shift. There is no acute hemorrhage. No calvarial fractures are visualized. There are mild white matter hypodensities likely on a small vessel basis. There is no evidence of pathologic ventricular dilatation. There is no evidence of acute sinusitis. There are carotid and vertebral artery calcifications IMPRESSION: No acute intracranial findings Electronically signed by: Marcelo Kidd M.D. 02/28/2019 3:45 PM ECG Data Attestation: I personally reviewed and interpreted this ECG as follows: Indication: abdominal pain Rate (beats per minute): 65 Rhythm: sinus rhythm Findings: + LBBB and + PVC; no ST elevation Comparison ECG Date: from (02/22/19) Change: the following changes noted (LBBB is chronic) Blood Pressure Blood Pressure Findings: Elevated blood pressure Blood Pressure Disposition: further management by hospitalist MDM Narrative This is a 83-year-old female who presents to the ED with a chief complaint of nausea and vomiting. [facility] local [facility]. The patient has a history of metastatic breast cancer. She is a DNR/DNI. EMS provided sublingual Zofran. The patient reports some abdominal discomfort on questioning. She vomited at least twice today. She does also report nausea. Her exam reveals some tenderness to palpation of the left lower quadrant of the abdomen. Her exam was otherwise unremarkable. She appears to be in mild to moderate distress due to her pain and nausea. A CT scan of the brain was negative for acute process. CT scan of the abdomen pelvis was also negative for acute process. Patient's white blood cell count was 12.5. Hemoglobin is 10.8. Her potassium is 2.8. Glucose is 155. EKG shows sinus rhythm at a rate of 65 with a chronic left bundle branch block. Urine did not show infection. Lipase was negative. Chest x-ray was negative for acute disease. The patient and family were told the results of the test. The patient was given IV fluids, IV morphine, IV Zofran, IV Phenergan and IV Compazine. She continued to feel n auseated and have dry heaves. Because of this the patient be seen by the hospitalist for inpatient evaluation. Impression & Plan Vomiting Discharge Plan Visit Data Chief Complaint: Vomiting Stated Complaint: nausea/vomit ED Provider: Manjinder Salinas Discharge Problem: Vomiting Patient Disposition: Being Evaluated by Hospitalist Forms Stand Alone Forms: [facility] [employer] Prescriptions Prescriptions: No Action ondansetron HCl [Zofran] 8 mg tablet 8 mg PO TID PRN (Reason: Nausea) RF: 0 doxycycline monohydrate 100 mg capsule 100 mg PO UD RF: 0 bisacodyl [Dulcolax (bisacodyl)] 10 mg Suppository 10 mg DE DAILY PRN (Reason: Constipation) RF: 0 atorvastatin 10 mg Tablet 10 mg PO QPM RF: 0 prednisone 5 mg Tablet 5 mg PO QDL RF: 0 potassium chloride 10 mEq Tablet Extended Release 20 meq PO QDL RF: 0 hydrochlorothiazide 12.5 mg Capsule 12.5 mg PO QAM RF: 0 levothyroxine 88 mcg Capsule 88 mcg PO QAM RF: 0 Calcium 600 + D(3) 600 mg calcium- 200 unit Capsule 1 cap PO DAILY RF: 0 acetaminophen [Tylenol Extra Strength] 500 mg Tablet 1,000 mg PO UD PRN (Reason: Pain) RF: 0 metronidazole 0.75 % gel 1 applic topical UD RF: 0 Xarelto 20 mg tablet 20 mg PO QAM RF: 0 cefdinir 300 mg capsule 300 mg PO BID 10 Days Qty: 20 RF: 0 metronidazole 500 mg tablet 500 mg PO TID 10 Days Qty: 30 RF: 0 tramadol [Ultram] 50 mg tablet 25 mg PO DAILY PRN (Reason: pain) Qty: 30 RF: 0 fentanyl 25 mcg/hr patch 72 hour 1 patch TD Q72H Qty: 5 RF: 0 Referrals Referrals: Eliezer Stokes MD [Primary Care Provider] - Discharge Problem: Vomiting Qualifiers: Vomiting type: unspecified Vomiting Intractability: intractable Nausea presence: unspecified Qualified Code(s): R11.10 - Vomiting, unspecified The scribe's documentation has been prepared under my direction and personally reviewed by me in its entirety. I confirm that the note above accurately reflects all work, treatment, procedures, and medical decision making performed by me.
[2019-02-28 12:56] LABS: INR 1.6 (0.9-1.1); Prothrombin Time 15.6 Seconds (9.0-12.0)
[2019-02-28 13:05] LABS: Albumin Level 1.9 gm/dl (3.4-5.0); BUN Creatinine Ratio 15.3 (10-20); Calcium 9.2 mg/dl (8.5-10.1); Creatinine Clr Calc Pharmacy 69.8 ml/min; Est GFR (African American) 93.4; Est GFR (Non-African American) 80.6; Potassium 2.8 mmol/L (3.5-5.1)
--- NOTE | 2019-02-28 13:07 | XRay Report ---
XR chest 1V portable CLINICAL HISTORY: abd pain COMPARISON STUDY: 02/22/2019 FINDINGS: The heart is mildly enlarged. There is a left-sided A-Port catheter present. There are smal l bilateral pleural effusions with associated basilar opacity statistically atelectatic. There is mil d pulmonary vascular congestion. There is evidence for left shoulder calcific tendinitis.[ IMPRESSION: 1. Cardiomegaly and mild pulmonary vascular congestion 2. Small bilateral pleural effusions with associated basilar opacities, likely atelectatic although a n infectious/inflammatory processes could appear similar 3. No evidence of free intraperitoneal air Electronically signed by: Marcelo Kidd M.D. 02/28/2019 1:06 PM
[2019-02-28 13:08] LABS: Albumin Globulin Ratio 0.4 (0.9-2); Bilirubin,Total 0.5 mg/dl (0.2-1); Globulin 4.3 gm/dl (2.5-4.0); Total Protein 6.2 gm/dl (6.4-8.2)
[2019-02-28 13:12] LABS: Hematocrit (blood only) 31.6 % (37-47); Hemoglobin 10.8 g/dL (12.0-16.0); Mean Corpuscular Hgb Conc 34.2 g/dL (32-36); Mean Corpuscular Volume 92.7 fL (80-100); Mean Platelet Volume 9.5 fL (7.4-10.4); Platelet Count 236 K/uL (130-400); RDW Coefficient of Variation 19.4 % (11.5-14.5); RDW Standard Deviation 65.2 fL (36.4-46.3); Red Blood Count 3.41 M/uL (4.2-5.4); White Blood Count 12.51 K/uL (4.8-10.8)
[2019-02-28 13:15] LABS: Basophils # (auto) 0.01 K/uL (0-0.2); Basophils % (auto) 0.1 %; Immature Granulocytes # (auto) 0.17 K/uL (0.00-0.02); Immature Granulocytes % (auto) 1.4 %; Lymphocytes # (auto) 0.78 K/uL (1.2-3.4); Lymphocytes % (auto) 6.2 %; Monocytes # (auto) 0.82 K/uL (0.11-0.59); Monocytes % (auto) 6.6 %; Neutrophils # (auto) 10.73 K/uL (1.4-6.5); Neutrophils % (auto) 85.7 %; RBC Morphology Unremarkable
--- NOTE | 2019-02-28 13:37 | CT Scan Report ---
CT SCAN OF THE ABDOMEN AND PELVIS WITHOUT CONTRAST CLINICAL HISTORY: Left lower quadrant tenderness, vomiting, hx met breast ca COMPARISON STUDY: 02/09/2019 TECHNIQUE: CT scan of the abdomen and pelvis was performed from the lung bases to the proximal femurs . Images are reviewed in the axial, sagittal, and coronal planes. IV contrast was not administered fo r this examination. A dose lowering technique was utilized adhering to the principles of ALARA. CT DOSE: 1147.33 mGy.cm FINDINGS: Lower chest: There are coronary artery calcifications. There are small bilateral pleural effusions. T here are bibasilar airspace opacities, statistically atelectatic. There is a 7 cm right breast mass. Liver: The unenhanced liver is normal in size, contour, and attenuation. There is no intrahepatic ignacio iary ductal dilatation. Gallbladder: Surgically absent Spleen: Normal in size and attenuation. Pancreas: Unremarkable. Adrenal glands: Unremarkable. Kidneys: There is a 44 mm right renal cyst. There is no hydronephrosis. No obstructing renal ureteral or bladder calculi are visualized. Bowel: There are no transition zones to indicate bowel obstruction. There is colonic diverticulosis. There is mild sigmoid wall thickening, similar to the preceding study. This may be secondary to perid iverticular muscular hypertrophy as there is no infiltration of the pericolonic fat. There is a moder ate amount a partially liquefied stool within the rectal vault. Peritoneum: There is no intraperitoneal free air or abdominal ascites. Vasculature: The abdominal aorta is normal in course and caliber. Adenopathy: None. Pelvic viscera: The uterus appears surgically absent Skeletal structures: Bones are osteopenic. Arthritic changes are present within the hips and spine. T here is evidence for spinal stenosis, most pronounced at the L4-5 level. IMPRESSION: 1. Right breast subdermal thickening and ulceration. A 7 cm right breast mass is suspected 2. No evidence of bowel obstruction. No evidence of free air 3. Colonic diverticulosis. Sigmoid wall thickening, similar to the prior study, possibly secondary to peridiverticular muscular hypertrophy. No convincing evidence of acute diverticulitis on this noncon trast study 4. No renal, ureteral, or bladder calculi identified Electronically signed by: Marcelo Kidd M.D. 02/28/2019 1:36 PM
[2019-02-28] MEDS ORDERED: PROCHLORPERAZINE 5 MG/ML 2 ML VIAL ONE (13:49)
[2019-02-28 14:13] LABS: Appearance Urine Clear (Clear); Bilirubin Urine Negative (Negative); Blood Urine Negative (Negative); Color Urine Yellow; Glucose Urine UA Negative (Negative); Ketones Urine Trace (Negative); Leukocyte Esterase Urine Negative (Negative); Nitrite Urine Negative (Negative); Protein Urine Negative (Negative); Specific Gravity Urine 1.013 (1.000-1.030); Urobilinogen Urine Negative (Negative); pH Urine 7.5 (4.5-7.5)
--- NOTE | 2019-02-28 15:48 | CT Scan Report ---
CT head/brain wo con CLINICAL HISTORY: vomiting CONFUSION COMPARISON STUDY: 07/04/2018 TECHNIQUE: Axial CT of the brain is performed from the vertex to the skull base. IV contrast was not administered for this examination. A dose lowering technique was utilized adhering to the principles of ALARA. CT DOSE: 537.48 mGy.cm FINDINGS: No intra or extra-axial mass lesions are visualized. There is no CT evidence of acute cortical infarc tion. There is no evidence of midline shift. There is no acute hemorrhage. No calvarial fractures ar e visualized. There are mild white matter hypodensities likely on a small vessel basis. There is no evidence of pathologic ventricular dilatation. There is no evidence of acute sinusitis. There are carotid and vertebral artery calcifications IMPRESSION: No acute intracranial findings Electronically signed by: Marcelo Kidd M.D. 02/28/2019 3:45 PM
[2019-02-28] MEDS ORDERED: PROMETHAZINE HCL 12.5 MG in SODIUM CHLORIDE 0.9% 50 ML IV STA (16:27)
[2019-02-28] MEDS ORDERED: PROMETHAZINE 12.5 MG/50.5 ML NSS IV ONE (16:36)
--- NOTE | 2019-02-28 17:16 | History & Physical Report ---
Date of Service February 28, 2019 Assessment & Plan (1) Vomiting: uncertain etiology Medication rxn vs hypoK vs acute GI illness vs chemo rxn vs related to skin infxns Will continue fentanyl patch as this is helping her pain, but may need to trial off if sx not improving Replace K and monitor Return to ceftriaxone given intolerance to PO Holding metronidazole as this can have substantial GI sx and is a newer medication CTAP neg for acute CT head neg for acute CXR neg for infxn (2) Hypokalemia: 2.8 on admission, was 4 on d/c 02/27 Cause of n/v vs caused by n/v Pt only with 3-4 episodes prior to ED--seems like a quick drop if this was WNL prior to emesis Replace and monitor (3) Stage II pressure ulcer of buttock: WCC pending Abx as above (4) Wound of right breast: WCC pending Abx as above (5) Hypertension: continue home meds (6) 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 Pt states she just starting to have emesis this AM. She admits to abd pain "everywhere". Pt denies fever, SOB, chest pain, c/d, LE pain or swelling. She tells me her last chemo/radiation was 2-3 weeks ago. Son was not present in the room, however I did speak with him in the waiting area. He states that pt was d/c'd from [facility] yesterday to [facility] due to weakness and ambulation issues. She had been at home prior to the hospitalization, however he did not feel he could care for her there with her current status. [facility] is hopefully a temporary situation. He states that nursing told him that pt was up, had alesha kfast and her morning meds, and was doing well at PT. She needed to have a bowel movement and was taken to the bathroom. It was while she was on the toilet that she started to have n/v that continued for multiple episodes. She was sent to the ED given the intractable nature of this. Son states that pt has had intermittent issues with n/v during her tx for breast cancer. She takes PRN zofran if it is an issue. He does not think that she was having issues prior to d/c. He states she had been eating well. Pt was d/c'd yesterday from [facility] after being dx with a cellulitis related to a radiation burn during her tx for breast cancer. She was also noted to have a pressure ulcer. 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 She had met with palliative care but was not on hospice. She had been on a fentanyl patch for several days prior to d/c and son felt that it was controlling her pain. Her abx were changed on day of d/c from ceftriaxone to cefdinir. Metronidazole had been added on 02/26. Tramadol was added on day of d/c as well. K on 02/27 was 4.0. Son states that she has had issues with hypoK and takes a regular supplement. Allergies Allergy/AdvReac Type Severity Reaction Status Date / Time latex Allergy Mild RASH AT Verified 02/28/19 13:13 SITE Home Medications Home Medications Medication Instructions Recorded Confirmed Type Calcium 600 + D(3) 1 cap PO DAILY 07/16/18 02/28/19 History atorvastatin 10 mg PO QPM 07/16/18 02/28/19 History hydrochlorothiazide 12.5 mg PO QAM 07/16/18 02/28/19 History levothyroxine 88 mcg PO QAM 07/16/18 02/28/19 History potassium chloride 20 meq PO QDL 07/16/18 02/28/19 History prednisone 5 mg PO QDL 07/16/18 02/28/19 History ondansetron HCl 8 mg tablet 8 mg PO TID PRN 12/01/18 02/28/19 History Xarelto 20 mg PO QAM 02/22/19 02/28/19 History acetaminophen [Tylenol Extra 1,000 mg PO UD PRN 02/22/19 02/28/19 History Strength] metronidazole 1 applic TOPICAL UD 02/22/19 02/28/19 History cefdinir 300 mg PO BID 10 Days #20 cap 02/27/19 02/28/19 Rx fentanyl 1 patch TD Q72H #5 ea 02/27/19 02/28/19 Rx metronidazole 500 mg PO TID 10 Days #30 tab 02/27/19 02/28/19 Rx tramadol [Ultram] 25 mg PO DAILY PRN #30 tab 02/27/19 02/28/19 Rx bisacodyl [Dulcolax (bisacodyl)] 10 mg FL DAILY PRN 02/28/19 02/28/19 History doxycycline monohydrate 100 mg PO UD 02/28/19 02/28/19 History Past Med/Surg History Medical History History of chemotherapy (Acute) Abraxane x 5 cycles q 3 weeks Anemia HX OF Breast cancer Diagnosed 06/04/18 - 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 Father , Passed age 87 of stroke No problems noted. Sister , Passed age 45 of ovarian CA No problems noted. Sister No problems noted. Sister No problems noted. Brother , Passed age 7 in an MVA No problems noted. Brother No problems noted. Brother No problems noted. Son , Passed age 45 of stroke No problems noted. Son No problems noted. Social History Preferred Language: Irish Communication Ability: Impaired Visual Impairment: Limited Hearing Ability: Hard of Hearing Slag Motor Operator Required: No Beliefs That Will Affect Care: Buddhism Buddhism Beliefs: MOSQUE marital status: Current Living Situation: Alone current occupational status: retired current occupation: Retired Housewife Feels Safe at Home: Yes Smoking Status: Never smoker Second Hand Exposure: No ; Hx Alcohol Use: No Hx Substance Use: No caffeine: Yes (Occasional) during the past year weight has: remained stable Dental Care, Regularly: No Review of Systems Review of Systems: Pertinent positives and negatives reviewed in HPI--all others negative Physical Exam Constitutional: WD/WN, vitals as above Eyes: normal visual ayers by confrontation and + anicteric sclerae Neck: normal visual inspection and trachea midline Respiratory: normal respiratory effort, lungs clear to auscultation Cardiovascular: Rate/Rhythm: regular rate and regular rhythm Gastrointestinal (Abdomen): Inspection/Auscultation: abdomen not distended Percussion/Palpation: + abdomen tender (diffuse) and abdomen soft Musculoskeletal: Head/Neck/Chest: normocephalic and head atraumatic negative for edema, peripheral pulses intact Skin: no rashes, warm and dry Neurologic: awake; not confused (drowsy) Speech / Cognition: normal speech Psychiatric: Orientation: oriented x 3 ill appearing and with minimal conversation. She does answer questions, but briefly Results & Data Vital Signs (Past 12 Hours) Vital Signs Temp Pulse Pulse Resp BP BP Pulse Ox 02/28/19 17:10 62 18 147/63 H 95 02/28/19 15:04 65 16 157/67 H 96 02/28/19 13:37 62 185/89 H 93 02/28/19 12:44 36.8 C 71 16 147/87 H 96 Diagnostic Findings CXR: sm b/l pleural effusions CTAP: breast mass noted, neg for acute CT head: neg for acute ECG Additional Comments: LBBB seen prior, PVCs are new Code Status & VTE Plan Code Status DNR/DNI per paperwork from facility Son is present and he states that code status is "whatever we filled out before she left on the pink form." VTE Prophylaxis Plan VTE Prophylaxis will be ordered: Yes PG Care Time/CCT Total # of Minutes Spent Total Time Spent with Patient: Total time spent is greater than 50% in coordination of care (as documented) at patient's floor/unit and/or counseling patient: (1) Vomiting Nausea presence: unspecified Vomiting Intractability: intractable Vomiting type: unspecified Qualified Code(s): R11.10 - Vomiting, unspecified (2) Wound of right breast Encounter type: initial encounter Qualified Code(s): S21.001A - Unspecified open wound of right breast, initial encounter (3) 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
[2019-02-28] MEDS ORDERED: TRAMADOL HCL 50 MG TABLET PO PRN (18:42)
[2019-02-28] MEDS ORDERED: POTASSIUM PHOS 3 MMOL/1 ML INFUSION IV STA (18:42)
[2019-02-28] MEDS ORDERED: ONDANSETRON 8 MG TABLET PO PRN (18:42)
[2019-02-28] MEDS ORDERED: MAGNESIUM HYDROXIDE SUSP 30 ML UDC PO PRN (18:42)
[2019-02-28] MEDS ORDERED: ACETAMINOPHEN 325 MG TAB PO PRN (18:42)
[2019-02-28] MEDS ORDERED: BISACODYL 10 MG SUPP PR PRN (18:42)
[2019-02-28] MEDS ORDERED: ONDANSETRON INJ 2 MG/ML 2 ML VIAL IV PRN (18:42)
[2019-02-28] MEDS ORDERED: ACETAMINOPHEN 500 MG TAB PO PRN (18:42)
[2019-02-28] MEDS ORDERED: cefTRIAXone SODIUM 1,000 MG in DEXTROSE 5% 50 ML IV SCH (18:42)
[2019-02-28] MEDS ORDERED: POTASSIUM PHOSPHATE 21 MMOL in SODIUM CHLORIDE 0.9% 500 ML IV ONE (19:15)
[2019-02-28] MEDS ORDERED: fentaNYL 25 MCG/HR TDSY TD SCH (19:30)
[2019-02-28] MEDS: cefTRIAXone SODIUM 2,000 MG in DEXTROSE 5% 50 ML IV SCH (20:04)
[2019-02-28] MEDS: NSS + 20MEQ KCL 20 MEQ/1,000 ML BAG IV SCH (20:04)
[2019-02-28] MEDS: DOXYCYCLINE HYCLATE 100 MG CAP PO SCH (20:06)
[2019-02-28] MEDS: ATORVASTATIN 10 MG TAB PO SCH (20:07)
[2019-03-01] MEDS: CHECK FENTANYL PATCH PLACEMENT SCH ×3 (00:25→15:33)
[2019-03-01] MEDS: metroNIDAZOLE 0.75% TOPICAL GEL 45 GM TUBE TOP SCH ×3 (00:25→20:31)
[2019-03-01] MEDS ORDERED: HEPARIN 100 UNIT/ML 5ML FLUSH FLUSH PRN (01:07)
[2019-03-01] MEDS: LEVOTHYROXINE SODIUM 88 MCG TABLET PO SCH (05:58)
[2019-03-01 06:40] LABS: Basophils # (auto) 0.01 K/uL (0-0.2); Basophils % (auto) 0.2 %; Eosinophils # (auto) 0.07 K/uL (0-0.5); Eosinophils % (auto) 1.4 %; Hematocrit (blood only) 29.7 % (37-47); Hemoglobin 9.8 g/dL (12.0-16.0); Immature Granulocytes # (auto) 0.04 K/uL (0.00-0.02); Immature Granulocytes % (auto) 0.8 %; Lymphocytes # (auto) 0.66 K/uL (1.2-3.4); Mean Corpuscular Volume 94.9 fL (80-100); Monocytes # (auto) 0.68 K/uL (0.11-0.59); Monocytes % (auto) 13.4 %; Neutrophils # (auto) 3.62 K/uL (1.4-6.5); Neutrophils % (auto) 71.2 %; Platelet Count 148 K/uL (130-400); RDW Coefficient of Variation 19.9 % (11.5-14.5); RDW Standard Deviation 68.6 fL (36.4-46.3); Red Blood Count 3.13 M/uL (4.2-5.4); White Blood Count 5.08 K/uL (4.8-10.8)
[2019-03-01 06:46] LABS: BUN Creatinine Ratio 18.5 (10-20); Calcium 8.7 mg/dl (8.5-10.1); Creatinine Clr Calc Pharmacy 92.1 ml/min; Est GFR (African American) 102.3; Est GFR (Non-African American) 88.3; Potassium 3.7 mmol/L (3.5-5.1)
[2019-03-01] MEDS: hydroCHLOROthiazide 25 MG TAB PO SCH (08:34)
[2019-03-01] MEDS: DOXYCYCLINE HYCLATE 100 MG CAP PO SCH (08:35)
[2019-03-01] MEDS: CALCIUM 600MG + VIT D 400 IU TAB PO SCH (08:35)
[2019-03-01] MEDS: POTASSIUM CHLORIDE 10 MEQ TABCR PO SCH (12:19)
[2019-03-01] MEDS: predniSONE 5 MG TAB PO SCH (12:19)
[2019-03-01] MEDS: NSS + 20MEQ KCL 20 MEQ/1,000 ML BAG IV SCH (12:53)
--- NOTE | 2019-03-01 15:07 | Family Medicine Progress Note ---
Date of Service March 01, 2019 Assessment & Plan (1) Breast cancer metastasized to lun83 year old woman with metastatic breast cancer status post numerous radiation treatments and chemotherapy that has caused nonhealing radiation induced wound, currently has stopped abraxane salvage therapy who is here for intractable N/V. Vomiting -resolved CT Abd/Pelvis, CXR, CT Head unremarkable Etiology unclear: Medication rxn (flagyl) vs hypoK (corrected) vs acute GI i llness Pt was on PO Cefdinir and Flagyl on last d/c Will return to IV ceftriaxone. Trial with IV Clinda and holding PO metronidazole given SE profile Zofran 8 mg PO TID prn, 4mg IV q6h prn. Will consider PETER on d/c Breast Cancer Appears to be terminal and goals of care discussion needs to be had with patient and family. Decided not to pursue any further chemo Pall care consult from prior hospital stay: DNR, limited additional interventions, abx with comfort as the goal, trial period of IVF but NO feeding tube. Not currently on hospice Radiation burn with infection Infected appearing and non healing Wound care following Keeping wound clean and dressed IV Ceftriaxone for infected wound (will transition to PO Cefdinir on d/c). Added Clinda today for multiple organism coverage for prior culture. Pain: Low dose fentanyl patch, PO tramadol/aceteminophen prn. Pt declines oxycodone 2/2 poor rxn in past. Buttock Wound Air Mattress to distribute pressure points Frequent repositioning Poor PO intake Normal saline with 20 meq KCl at 60 ml an hour Patient is declining boost or Ensure Hypertension Continue home HCTZ 12.5 qam Hypothyroid Continue home synthroid 88 mcg Hyperlipidemia Continue home atorvastatin 10 mg qpm Polymyalgia rheumatica Prednisone 5mg FEN/GI: Regular patient declining boost or Ensure, encourage patient to eat more protein to help with wound healing DVT Prophylaxis: rivaroxaban DNR/DNI Dispo: Working with CM for snf placement. Will need to ascertain if 2-midnight rule applies as pt is medicare and if pt can return back to [facility]. Supervising Physician Co-Signing Physician Notes Patient seen and examined with PGY-2 Dr. Bradley. Agree with history, exam findings, assessment and plan of care as outlined with the following updates: In brief, Ms Azul is a very pleasant 83 year old female with history of breast cancer with radiation burn and cellulitis to the right breast recently discharged from our service on cefdinir and flagyl. Wound culture grew out moderate amounts of E. Coli, Proteus and Morganella. She is admitted with nausea and vomiting after transitioning to oral antibiotics. No diarrhea. Suspect that the flagyl may have contributed to this. No signs of sepsis. Switch back to ceftriaxone and add clinda for coverage of the organisms in the wound culture. N ausea and vomiting has resolved. Monitor. Has PRN zofran ordered. Wound care for the right breast and pressure ulcer of the buttock. Hypokalemia is resolved. Other chronic issues stable. Dispo: pending clinical improvement. Subjective 83 yo F found in bed this AM in NAD. No reported overnight events. Notes N/V improved, has not had emesis since ED. Still feels some weakness. Pain level tolerable. No other acute concerns or complaints. Review of Systems Review of Systems: All systems reviewed & are unremarkable except as noted in HPI & below Physical Exam Constitutional: WD/WN, vitals as above Eyes: PERRL, conjunctivae normal, anicteric sclerae Respiratory: normal respiratory effort, lungs clear to auscultation Cardiovascular: RRR, no murmur, no edema Chest (Breasts): Additional Comments: R breast wet desquamated Sizeable hole with purulent drainage underneath R breast Tender to touch Bandaged w/o leakage Gastrointestinal (Abdomen): normal bowel sounds, soft, nontender, no hepatosp lenomegaly Skin: no rashes, warm and dry Psychiatric: A+Ox3, euthymic affect Results & Data Vital Signs (Past 12 Hours) Vital Signs Temp Pulse Pulse Resp BP Pulse Ox 03/01/19 15:00 36.7 C 98 H 17 131/68 75 L 03/01/19 14:31 97 03/01/19 11:10 36.4 C L 60 17 145/69 H 100 03/01/19 08:03 36.3 C L 80 18 126/69 92 03/01/19 03:36 36.5 C 77 17 137/77 98 Laboratory Results Laboratory Results - last 24 hr 02/28/19 03/01/19 03/01/19 20:25 06:05 06:05 WBC 5.08 RBC 3.13 L Hgb 9.8 L Hct 29.7 L MCV 94.9 MCH 31.3 MCHC 33.0 RDW Std Deviation 68.6 H RDW Coeff of Siobhan 19.9 H Plt Count 148 MPV 10.0 Immature Gran % (Auto) 0.8 Neut % (Auto) 71.2 Lymph % (Auto) 13.0 Sunflower % (Auto) 13.4 Eos % (Auto) 1.4 Baso % (Auto) 0.2 Immature Gran # (Auto) 0.04 H Neut # (Auto) 3.62 Lymph # (Auto) 0.66 L Sunflower # (Auto) 0.68 H Eos # (Auto) 0.07 Baso # (Auto) 0.01 Sodium 138 Potassium 3.7 D Chloride 103 Carbon Dioxide 30 Anion Gap 6.0 BUN 9 Creatinine 0.50 L Est Cr Clr Drug Dosing 92.1 Est GFR ( Amer) 102.3 Est GFR (Non-Af Amer) 88.3 BUN/Creatinine Ratio 18.5 Glucose 82 Calcium 8.7 Nasal Screen MRSA (PCR) Negative Medications Administered Current Inpatient Medications Acetaminophen (Tylenol) 650 mg PO Q4H PRN PRN Reason: Pain or Fever Stop: 03/30/19 18:41 Atorvastatin Calcium (Lipitor) 10 mg PO QPM [facility] Stop: 03/30/19 20:59 Last Admin: 02/28/19 20:07 Dose: 10 mg Documented by: Bisacodyl (Dulcolax) 10 mg [place] DAILY PRN PRN Reason: Constipation Stop: 03/30/19 18:41 Fentanyl (Duragesic) 25 mcg TD Q72H [facility] Stop: 03/14/19 19:29 Last Admin: 02/28/19 20:06 Dose: 25 mcg Documented by: Heparin Sodium (Porcine) (Heparin Sod 100 Unit/Ml Flush) 5 ml FLUSH PRN PRN PRN Reason: Flush Stop: 03/31/19 01:14 Hydrochlorothiazide (Hctz) 12.5 mg PO QAM [facility] Stop: 03/31/19 08:59 Last Admin: 03/01/19 08:34 Dose: 12.5 mg Documented by: Potassium Chloride/Sodium Chloride (Normal Saline W/20 Meq Kcl) 20 meq in 1,000 mls @ 60 mls/hr IV .[id number] [facility] Stop: 03/30/19 18:41 Last Admin: 03/01/19 12:53 Dose: 60 mls/hr Documented by: Ceftriaxone Sodium 2,000 mg/ (Dextrose) 70 mls @ 140 mls/hr IV Q24H PETER Stop: 03/10/19 19:29 Last Infusion: 02/28/19 21:25 Dose: Infused Documented by: Levothyroxine Sodium (Synthroid) 88 mcg PO DAILYBB [facility] Stop: 03/31/19 06:29 Last Admin: 03/01/19 05:58 Dose: 88 mcg Documented by: Magnesium Hydroxide (Milk Of Magnesia) 30 ml PO Q12H PRN PRN Reason: Constipation Stop: 03/30/19 18:41 Metronidazole (Metrogel) 1 appln TOP BID [facility] Stop: 03/10/19 21:59 Last Admin: 03/01/19 08:35 Dose: 1 appln Documented by: Miscellaneous (Fentanyl Patch Check Placement) 1 ea N/A QS [facility] Stop: 03/31/19 00:00 Last Admin: 03/01/19 08:35 Dose: Not Given Documented by: Miscellaneous (Fentanyl Patch Remove & Waste) 1 ea N/A Q3D [facility] Stop: 04/02/19 17:24 Multivitamins/Minerals (Caltrate Plus) 1 tab PO DAILY [facility]ER Stop: 03/31/19 08:59 Last Admin: 03/01/19 08:35 Dose: 1 tab Documented by: Ondansetron HCl (Zofran Tab) 8 mg PO TID PRN PRN Reason: Nausea Stop: 03/30/19 18:41 Ondansetron HCl (Zofran) 4 mg IV Q6H PRN PRN Reason: Nausea Stop: 03/30/19 18:41 Potassium Chloride (Klor-Con M10) 20 meq PO QDL [facility] Stop: 03/31/19 11:29 Last Admin: 03/01/19 12:19 Dose: 20 meq Documented by: Prednisone (Prednisone) 5 mg PO QDL [facility] Stop: 03/31/19 11:29 Last Admin: 03/01/19 12:19 Dose: 5 mg Documented by: Rivaroxaban (Xarelto) 20 mg PO QDD [facility] Stop: 03/31/19 16:29 Tramadol HCl (Ultram) 25 mg PO Q4H PRN PRN Reason: pain Stop: 03/30/19 18:41 Resident Activity Tracking Resident Involvement: Resident Care Provided Care Provided: Adult Hospital Medicine (1) 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
[2019-03-01] MEDS: RIVAROXABAN 20 MG TAB PO SCH (15:36)
[2019-03-01] MEDS: CLINDAMYCIN 600 MG in DEXTROSE 5% 50 ML IV SCH ×2 (17:22→23:51)
[2019-03-01] MEDS: cefTRIAXone SODIUM 2,000 MG in DEXTROSE 5% 50 ML IV SCH (20:20)
[2019-03-01] MEDS: ATORVASTATIN 10 MG TAB PO SCH (20:25)
[2019-03-01] MEDS ORDERED: GABAPENTIN 100 MG CAP PO SCH (21:00)
[2019-03-02] MEDS: CHECK FENTANYL PATCH PLACEMENT SCH ×3 (00:04→15:35)
[2019-03-02 00:40] VITALS: O2SAT 98
[2019-03-02] MEDS: NSS + 20MEQ KCL 20 MEQ/1,000 ML BAG IV SCH (04:55)
[2019-03-02] MEDS: LEVOTHYROXINE SODIUM 88 MCG TABLET PO SCH (05:53)
[2019-03-02 07:28] VITALS: BP 152/74; TEMP 97.7
[2019-03-02 07:29] LABS: Basophils # (auto) 0.01 K/uL (0-0.2); Basophils % (auto) 0.3 %; Eosinophils # (auto) 0.05 K/uL (0-0.5); Eosinophils % (auto) 1.4 %; Hematocrit (blood only) 26.1 % (37-47); Hemoglobin 8.7 g/dL (12.0-16.0); Immature Granulocytes # (auto) 0.04 K/uL (0.00-0.02); Immature Granulocytes % (auto) 1.1 %; Lymphocytes # (auto) 0.55 K/uL (1.2-3.4); Lymphocytes % (auto) 14.9 %; Mean Corpuscular Hgb Conc 33.3 g/dL (32-36); Mean Corpuscular Volume 95.6 fL (80-100); Mean Platelet Volume 9.2 fL (7.4-10.4); Monocytes # (auto) 0.57 K/uL (0.11-0.59); Monocytes % (auto) 15.5 %; Neutrophils # (auto) 2.46 K/uL (1.4-6.5); Neutrophils % (auto) 66.8 %; Platelet Count 150 K/uL (130-400); RDW Coefficient of Variation 20.2 % (11.5-14.5); RDW Standard Deviation 69.7 fL (36.4-46.3); Red Blood Count 2.73 M/uL (4.2-5.4); White Blood Count 3.68 K/uL (4.8-10.8)
[2019-03-02 07:47] LABS: Anisocytosis Present; Ovalocytes 1+
[2019-03-02 08:06] LABS: BUN Creatinine Ratio 20.6 (10-20); Calcium 8.3 mg/dl (8.5-10.1); Creatinine Clr Calc Pharmacy 100.2 ml/min; Est GFR (African American) 105.1; Est GFR (Non-African American) 90.7; Potassium 3.6 mmol/L (3.5-5.1)
[2019-03-02] MEDS: CALCIUM 600MG + VIT D 400 IU TAB PO SCH (08:26)
[2019-03-02] MEDS: hydroCHLOROthiazide 25 MG TAB PO SCH (08:27)
[2019-03-02] MEDS: CLINDAMYCIN 600 MG in DEXTROSE 5% 50 ML IV SCH ×2 (08:35→15:33)
[2019-03-02] MEDS ORDERED: MICONAZOLE NITRATE POWDER 43 GM ONE (09:05)
[2019-03-02] MEDS: predniSONE 5 MG TAB PO SCH (12:00)
[2019-03-02] MEDS ORDERED: LACTOBACILLUS ACIDOPHILUS (FLORANEX) TAB PO SCH (12:00)
[2019-03-02] MEDS: POTASSIUM CHLORIDE 10 MEQ TABCR PO SCH (12:00)
[2019-03-02] MEDS: metroNIDAZOLE 0.75% TOPICAL GEL 45 GM TUBE TOP SCH (14:43)
--- NOTE | 2019-03-02 15:01 | Discharge Summary ---
Date of Service March 02, 2019 Admission HPI Per Admitting Provider 83 y/o F who was brought to the ED from [facility] for intractable n/v. Pt states she just starting to have emesis this AM. She admits to abd pain "everywhere". Pt denies fever, SOB, chest pain, c/d, LE pain or swelling. She tells me her last chemo/radiation was 2-3 weeks ago. Son was not present in the room, however I did speak with him in the waiting area. He states that pt was d/c'd from [facility] yesterday to [facility] due to weakness and ambulation issues. She had been at home prior to the hospitalization, however he did not feel he could care for her there with her current status. [facility] is hopefully a temporary situation. He states that nursing told him that pt was up, had breakfast and her morning meds, and was doing well at . She needed to have a bowel movement and was taken to the bathroom. It was while she was on the toilet that she started to have n/v that continued for multiple episodes. She was sent to the ED given the intractable nature of this. Son states that pt has had intermittent issues with n/v during her tx for breast cancer. She takes PRN zofran if it is an issue. He does not think that she was having issues prior to d/c. He states she had been eating well. Pt was d/c'd yesterday from [facility] after being dx with a cellulitis related to a radiation burn during her tx for breast cancer. She was also noted to have a pressure ulcer. 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 She had met with palliative care but was not on hospice. She had been on a fentanyl patch for several days prior to d/c and son felt that it was controlling her pain. Her abx were changed on day of d/c from ceftriaxone to cefdinir. Metronidazole had been added on 02/26. Tramadol was added on day of d/c as well. K on 02/27 was 4.0. Son states that she has had issues with hypoK and takes a regular supplement. Principal Diagnosis n/v Discharge Exam Constitutional WD/WN, vitals as above Eyes PERRL, conjunctivae normal, anicteric sclerae Respiratory normal respiratory effort, lungs clear to auscultation Cardiovascular RRR, no murmur, no edema Chest (Breasts) Additional Comments: R breast wet desquamated Sizeable hole with purulent drainage underneath R breast Tender to touch Bandaged w/o leakage Gastrointestinal (Abdomen) normal bowel sounds, soft, nontender, no hepatosplenomegaly Skin no rashes, warm and dry Psychiatric A+Ox3, euthymic affect Discharge Data Allergies Allergy/AdvReac Type Severity Reaction Status Date / Time latex Allergy Mild RASH AT Verified 02/28/19 13:13 SITE cephalexin [From Keflex] AdvReac Verified 03/01/19 15:42 metronidazole [From Flagyl] AdvReac Vomiting Verified 03/01/19 15:42 oxycodone AdvReac Verified 03/01/19 15:42 Consultations 02/28/19 16:14 ED Decision to Admit Stat 02/28/19 18:42 Consult Case Management - Discharge Planning Routine 03/01/19 15:17 Consult Case Management - Discharge Planning Routine Ordered Studies 02/28/19 12:12 CT abd pelvis wo con Stat 02/28/19 15:22 CT head/brain wo con Stat Hospital Course (1) Breast cancer metastasized to lun83 year old woman with metastatic breast cancer status post numerous radiation treatments and chemotherapy that has caused nonhealing radiation induced wound, currently has stopped abraxane salvage therapy who represented for intractable N/V. The following is the medical management during stay here: Vomiting -resolved -Imaging done here: CT Abd/Pelvis, CXR, CT Head unremarkable -The etiology was unclear: Maryam it was medication rxn (flagyl) -Pt was on PO Cefdinir and Flagyl on last d/c. We returned to IV ceftriaxone here and started a trial with IV Clinda while holding PO metronidazole given its SE profile -Pt had been taking Zofran 8 mg PO TID prn. On discharge, pt will take PETRE Zof ran 4 mg q4hr for one day, and then previous prn dosing afterwards. This will hopefully help combat any N/V ahead of time. Breast Cancer Oncology consulted, appears to be terminal and decided not to pursue any further chemo Pal care was consult: DNR, limited additional interventions, abx with comfort as the goal, trial period of IVF but NO feeding tube. Not currently on hospice Radiation burn with infection Infected appearing and non healing Wound care following Keeping wound clean and dressed IV Ceftriaxone for infected wound (will transition to PO Cefdinir on d/c). Also will cont PO Clinda on d/c. Both of these will be for one week . To help combat diarrhea SE of clinda, pt to take probiotic Lactobacillus for 2 weeks. Pain: PO tramadol/aceteminophen prn. Pt declines oxycodone 2/2 poor rxn in past. Continued Fentanyl Patch Buttock Wound Air Mattress to distribute pressure points Frequent repositioning Poor PO intake Normal saline with 20 meq KCl at 60 ml an hour while here Patient is declining boost or Ensure, but try to encourage moving forward Hypertension Continue home HCTZ 12.5 qam Hypothyroid Continue home synthroid 88 mcg Hyperlipidemia Continue home atorvastatin 10 mg qpm Polymyalgia rheumatica Prednisone 5mg At time of d/c, pt had no other acute concerns or complaints. Total Time Total Time Spent Total Time Spent (In Minutes): Less than 30 Discharge Plan Discharge Items Patient Disposition: Transfer Nursing Home Fac Reason For Visit: INTRACTABLE N/V Discharge Diagnosis: nausea/vomiting 2/2 medications Discharge Goals: Decrease discomfort, Improve disease control and Improve function Activity: Per 'Additional Instructions' section Non-emergency contact: Primary Care Provider Call non-emergency contact if: you have any medication questions, your symptoms worsen, your pain is not controlled and your temperature is above 101.5 Follow-up/Referrals: Eliezer Stokes MD [Primary Care Provider] - Diet: Regular Addtl Provider Instructions: 83 year old woman with metastatic breast cancer status post numerous radiation treatments and chemotherapy that has caused nonhealing radiation induced wound, currently has stopped abraxane salvage therapy who represented for intractable N/V. The following is the medical management during stay here: Vomiting -resolved -Imaging done here: CT Abd/Pelvis, CXR, CT Head unremarkable -The etiology was unclear: Kaliley it was medication rxn (flagyl) -Pt was on PO Cefdinir and Flagyl on last d/c. We returned to IV ceftriaxone here and started a trial with IV Clinda while holding PO metronidazole given its SE profile -Pt had been taking Zofran 8 mg PO TID prn. On discharge, pt will take PETER Zofran 4 mg q4hr for one day, and then previous prn dosing afterwards. This will hopefully help combat any N/V ahead of time. Breast Cancer Oncology consulted, appears to be terminal and decided not to pursue any further chemo Pal care was consult: DNR, limited additional interventions, abx with comfort as the goal, trial period of IVF but NO feeding tube. Not currently on hospice Radiation burn with infection Infected appearing and non healing Wound care following Keeping wound clean and dressed IV Ceftriaxone for infected wound (will transition to PO Cefdinir on d/c). Also will cont PO Clinda on d/c. Both of these will be for one week . To help combat diarrhea SE of clinda, pt to take probiotic Lactobacillus for 2 weeks. Pain: PO tramadol/aceteminophen prn. Pt declines oxycodone 2/2 poor rxn in past. Continued Fentanyl Patch Buttock Wound Air Mattress to distribute pressure points Frequent repositioning Poor PO intake Normal saline with 20 meq KCl at 60 ml an hour while here Patient is declining boost or Ensure, but try to encourage moving forward Hypertension Continue home HCTZ 12.5 qam Hypothyroid Continue home synthroid 88 mcg Hyperlipidemia Continue home atorvastatin 10 mg qpm Polymyalgia rheumatica Prednisone 5mg At time of d/c, pt had no other acute concerns or complaints. Prescriptions: New ondansetron HCl [Zofran] 4 mg tablet 4 mg PO Q4H 1 Days Qty: 6 RF: 0 clindamycin HCl 300 mg capsule 600 mg PO Q8H 7 Days Qty: 42 RF: 0 Lactobacillus acidophilus capsule 100 mmu cells PO TID Qty: 42 RF: 0 Continued ondansetron HCl [Zofran] 8 mg tablet 8 mg PO TID PRN (Reason: Nausea) RF: 0 bisacodyl [Dulcolax (bisacodyl)] 10 mg Suppository 10 mg OH DAILY PRN (Reason: Constipation) RF: 0 atorvastatin 10 mg Tablet 10 mg PO QPM RF: 0 prednisone 5 mg Tablet 5 mg PO QDL RF: 0 potassium chloride 10 mEq Tablet Extended Release 20 meq PO QDL RF: 0 hydrochlorothiazide 12.5 mg Capsule 12.5 mg PO QAM RF: 0 levothyroxine 88 mcg Capsule 88 mcg PO QAM RF: 0 Calcium 600 + D(3) 600 mg calcium- 200 unit Capsule 1 cap PO DAILY RF: 0 acetaminophen [Tylenol Extra Strength] 500 mg Tablet 1,000 mg PO UD PRN (Reason: Pain) RF: 0 metronidazole 0.75 % gel 1 applic topical UD RF: 0 Xarelto 20 mg tablet 20 mg PO QAM RF: 0 tramadol [Ultram] 50 mg tablet 25 mg PO DAILY PRN (Reason: pain) Qty: 30 RF: 0 fentanyl 25 mcg/hr patch 72 hour 1 patch TD Q72H Qty: 5 RF: 0 Discontinued doxycycline monohydrate 100 mg capsule 100 mg PO UD RF: 0 cefdinir 300 mg capsule 300 mg PO BID 10 Days Qty: 20 RF: 0 metronidazole 500 mg tablet 500 mg PO TID 10 Days Qty: 30 RF: 0 Stand-Alone Forms: [facility] Discharge Orders: Discharge Order (Routine); Ordered 03/02/19 Ordered By: Rakan Bradley Skilled Items Patient informed of condition?: Yes DNR: Yes Discharge Level of Care: Skilled Communicable Disease: No Discharge Prognosis: Stable Admission Data Admit Date/Time: 02/28/19 17:13 Attending Provider: Franklyn Asencio Admit Provider: Cherie Ramesh Primary Care Provider: Eliezer Stokes V. Other Providers: Cherie Ramesh ; Teo Delarosa Service: Medical Other Interventions: Discharge Summary Assessment (RN) Last Done: 03/02/19 16:07 DC Date/Time DO NOT enter until pt leaves facility: 03/02/19 16:45 Supervising Physician Co-Signing Physician Notes I personally examined the patient and verified all mathews points of history and exam, discussed case, and agree with decision making with Dr Bradley. Nausea gone. Anxious about it recurring. No current symptoms. Vitals noted, in general she is awake and alert pleasant very anxious but no physical distress. HEENT normocephalic atraumatic mucous membranes moist. Breathing unlabored no accessory muscle use good effort. Skin shows no rashes no pallor or icterus. Intractable nausea and vomitingnow improved. More than likely related to Flagyl, versus anxiety, versus both. Stable for return to [facility]. QT has improved (see below) therefore would recommend scheduled Zofran 4 mg every 6 hours for 24 hours before weaning back to as needed. Breast cellulitiscontinue current antibiotics. Given that she is on clindamycin now, we have added probiotics Long QTappears to related to her hypokalemia, which in turn was related to intractable nausea and vomiting. Improved. Stable for return to [facility]. Otherwise as above. Resident Activity Tracking Resident Involvement: Resident Care Provided Care Provided: Adult Hospital Medicine
[2019-03-02] MEDS: RIVAROXABAN 20 MG TAB PO SCH (15:36)
[2019-03-02 16:10] VITALS: PULSE 77
== END 2019-03-02 16:45 | DRG 392 ==
LOC: ED 12:05 → SUATTDRO 17:13 → 2S 17:13 → 4W 03-01 11:00